=== PATIENT | female | born 1940 | race Caucasian/White ===

== ENCOUNTER 2017-09-18 21:37 | Inpatient (IN) | payer MEDICARE, MEDICAID ==
[2017-09-18 21:37] VITALS: BMI 30.1
--- NOTE | 2017-09-18 22:08 | C.PDOC ---
History Of Present Illness Patient, whose past medical history includes HTN and CAD, who presents to the ED complaining of shortness of breath since the last 2 to 3 weeks. Patient reports the symptoms began with mild productive cough and chest pain secondary to cough a few days ago. Patient denies fever, abdominal pain, vomiting, headache, or other complaints. Time Seen by Provider: 09/18/17 22:07 Chief Complaint (Nursing): Flu-like Symptoms History Per: Patient History/Exam Limitations: no limitations Onset/Duration Of Symptoms: Days Current Symptoms Are (Timing): Still Present Current Respiratory Medications: None Severity: Moderate Pain Scale Rating Of: 5 Associated Symptoms: Chest Pain (secondary to cough), Productive Cough. denies : Fever, Chills Recent travel outside of the [place]: No Past Medical History Reviewed: Historical Data, Nursing Documentation, Vital Signs Vital Signs: Last Vital Signs Temp 97.7 F 09/18/17 21:58 Pulse 70 09/18/17 21:58 Resp 18 09/18/17 21:58 BP 158/69 H 09/18/17 21:58 Pulse Ox 99 09/18/17 22:53 - Medical History PMH: Arthritis, Bronchitis, CAD, Cardia Arrhythmia, HTN, Hypercholesterolemia Denies: Chronic Kidney Disease Family History: States: No Known Family Hx - Social History Hx Tobacco Use: No Hx Alcohol Use: No Hx Substance Use: No - Immunization History Hx Influenza Vaccination: Yes Hx Pneumococcal Vaccination: Yes Review Of Systems Constitutional: Negative for: Fever Cardiovascular: Positive for: Chest Pain Respiratory: Positive for: Cough, Shortness of Breath Gastrointestinal: Negative for: Vomiting, Abdominal Pain Genitourinary: Negative for: Dysuria Musculoskeletal: Negative for: Back Pain Neurological: Negative for: Weakness, Numbness Physical Exam - Physical Exam Appears: Non-toxic, In Acute Distress Skin: Warm, Dry Head: Normacephalic Eye(s): bilateral: Normal Inspection Throat: No Erythema, No Exudate Neck: Supple Chest: No Tenderness, Other (sternotomy scar) Cardiovascular: Rhythm Regular, No Murmur Respiratory: No Rales, Rhonchi (scattered rhonchi) Gastrointestinal/Abdominal: Bowel Sounds (active), Soft, No Tenderness, No Distention, No Guarding, No Rebound Extremity: Normal ROM, Pedal Edema (bilateral ) Neurological/Psych: Oriented x3, Normal Speech, Normal Motor, Normal Sensation ED Course And Treatment - Laboratory Results Result Diagrams: 09/18/17 22:46 09/18/17 22:46 ECG: Interpreted By Me, Viewed By Me ECG Rhythm: Sinus Rhythm (66), Nonspecific Changes O2 Sat by Pulse Oximetry: 99 (room air) Pulse Ox Interpretation: Normal - Radiology CXR: Interpreted by Me, Viewed By Me CXR Interpretation: Yes: Other (av in place, sternotomy wires). No: COPD, Fracture, Pnemothorax Disposition Discussed With Dr.: Carlos Alberto Rojo Doctor Will See Patient In The: ED Counseled Patient/Family Regarding: Studies Performed, Diagnosis - Disposition Disposition: HOSPITALIZED Disposition Time: 22:08 Condition: FAIR - Clinical Impression Clinical Impression: Dyspnea, CHF (congestive heart failure), Pneumonia - Scribe Statement The provider has reviewed the documentation as recorded by the Scribe Scribe Attestation: Apryl Cummins MD Scribe Attestation: All medical record entries made by the Scribe were at my direction and personally dictated by me. I have reviewed the chart and agree that the record accurately reflects my personal performance of the history, physical exam, medical decision making, and the department course for this patient. I have also personally directed, reviewed, and agree with the discharge instructions and disposition. Decision To Admit - Pt Status Changed To: Hospital Disposition Of: Inpatient - Admit Certification Admit to Inpatient:: After my assessment, the patient will require hospitalization for at least two midnights. This is because of the severity of symptoms shown, intensity of services needed, and/or the medical risk in this patient being treated as an outpatient. - InPatient: Physician Admission Certification: I certify that this patient requires 2 or more midnights of care for the following reason:: After my assessment, the patient will require hospitalization for at least two midnights. This is because of the severity of symptoms shown, intensity of services needed, and/or the medical risk in this patient being treated as an outpatient. - . Bed Request Type: Telemetry Admitting Physician: Carlos Alberto Rojo Patient Diagnosis: Dyspnea, CHF (congestive heart failure), Pneumonia
[2017-09-18] MEDS ORDERED: cefTRIAXone IV 1 gm in Dextros 50 ML IVPB ONE (22:37)
[2017-09-18] MEDS ORDERED: Azithromycin 500 MG in Sodium Chloride 0.9% 250 ML IVPB STA (22:39)
[2017-09-18 22:49] LABS: BASO % 0.4 % (0.0-2.0); HEMOGLOBIN 11.7 g/dL (11.0-16.0); LYMPH # 0.8 K/uL (1.0-4.3); LYMPH % 20.5 % (20.0-40.0); MEAN CORPUSCULAR HEMOGLOBIN 29.1 pg (27.0-31.0); MEAN CORPUSCULAR HGB CONC 32.9 g/dL (33.0-37.0); MEAN PLATELET VOLUME 9.6 fL (7.2-11.7); MONO # 0.1 K/uL (0.0-0.8); MONO % 3.8 % (0.0-10.0); NEUT # 2.8 K/uL (1.8-7.0); NEUT % 75.3 % (50.0-75.0); RBC 4.03 Mil/uL (3.80-5.20); RED CELL DISTRIBUTION WIDTH 14.3 % (11.5-14.5)
[2017-09-18 22:51] LABS: VENOUS BLOOD GAS PCO2 42 mmHg (40-60); VENOUS BLOOD GAS PO2 43 mm/Hg (30-55)
[2017-09-18 22:53] LABS: MEAN CELL VOLUME 88.4 fL (81.0-99.0); WHITE BLOOD COUNT 3.8 K/uL (4.8-10.8)
[2017-09-18 22:57] LABS: INR 2.6
[2017-09-18 23:00] LABS: PROTHROMBIN TIME 30.4 SECONDS (9.7-12.2)
[2017-09-18 23:04] LABS: ALB/GLOB RATIO 1.1 (1.0-2.1); ALT/SGPT 32 U/L (9-52); AST/SGOT 41 U/L (14-36); BLOOD UREA NITROGEN 18 mg/dL (7-17); GFR AFRICAN-AMERICAN > 60; GFR NON-AFRICAN AMERICAN > 60
[2017-09-18 23:15] LABS: B-TYPE NATRIURETIC PEPTIDE 1090 pg/mL (0-900)
[2017-09-18] MEDS ORDERED: cefTRIAXone IV 1 gm in Dextros 0 ML IVPB ONE (23:16)
[2017-09-19] MEDS: Albuterol-Ipratrop 3 mg / 0.5 (3 ml) UD IH PRN ×2 (06:51→11:23)
[2017-09-19] MEDS ORDERED: Albuterol-Ipratrop 3 mg / 0.5 (3 ml) UD ONE (06:54)
[2017-09-19 07:33] LABS: SQUAMOUS EPITHIAL < 1 /hpf (0-5); URINE BILIRUBIN NEGATIVE (NEGATIVE); URINE BLOOD NEGATIVE (NEGATIVE); URINE CLARITY Clear (Clear); URINE COLOR Yellow (YELLOW); URINE GLUCOSE (UA) NORMAL (Normal); URINE LEUKOCYTE ESTERASE NEG Leu/uL (Negative); URINE PROTEIN NEGATIVE (NEGATIVE); URINE UROBILINOGEN NORMAL mg/dL (0.2-1.0)
--- NOTE | 2017-09-19 09:10 | RAD ---
PROCEDURE: CHEST RADIOGRAPH, 1 VIEW HISTORY: SOB COMPARISON: Chest radiograph dated 12/10/2014. FINDINGS: LUNGS: Stable chronic prominence of the bilateral interstitial markings with superimposed pulmonary vascular congestion not excluded. No focal consolidation. PLEURA: No pneumothorax or pleural fluid seen. CARDIOVASCULAR: Prior sternotomy with sternal wires and surgical clips redemonstrated. Atherosclerotic aortic calcifications. Cardiomediastinal silhouette stably enlarged. OSSEOUS STRUCTURES: Unchanged. VISUALIZED UPPER ABDOMEN: Normal. OTHER FINDINGS: None. IMPRESSION: Prominence of the pulmonary vasculature may be secondary to AP technique and/or pulmonary vascular congestion. No focal consolidation or pleural effusion.
[2017-09-19] MEDS ORDERED: MethylPREDNISolone 40 mg Vial IVP ONE (09:30)
[2017-09-19] MEDS ORDERED: MethylPREDNISolone 40 mg Vial ONE (09:42)
[2017-09-19 12:09] LABS: CK-MB 0.85 ng/mL (0.0-3.38)
[2017-09-19] MEDS: Potassium Chloride 10 mEq ER Tab PO SCH (13:01)
[2017-09-19] MEDS ORDERED: Potassium Chloride 10 mEq ER Tab PO ONE (13:02)
[2017-09-19] MEDS ORDERED: Albuterol-Ipratrop 3 mg / 0.5 (3 ml) UD IH PRN (14:30)
[2017-09-19 19:23] LABS: INR 2.8
[2017-09-19 19:27] LABS: PROTHROMBIN TIME 33.1 SECONDS (9.7-12.2)
[2017-09-19] MEDS: Albuterol-Ipratrop 3 mg / 0.5 (3 ml) UD INH SCH (19:30)
[2017-09-19] MEDS: MethylPREDNISolone 40 mg Vial IV SCH (22:00)
--- NOTE | 2017-09-19 23:11 | CON ---
DATE: CARDIOLOGY CONSULTATION REASON FOR CONSULTATION: Shortness of breath. HISTORY OF PRESENT ILLNESS: The patient is a 77 years old Filipino female who has history of chronic obstructive lung disease, history of aortic valve replacement for aortic stenosis in 1992 with a prosthetic valve, presents because of shortness of breath and productive cough as well as sweating. The patient denies any retrosternal chest pain but she does report tightness with her breathing that is nonradiating. SOCIAL HISTORY: Nonsmoker, nondrinker. HOME MEDICATIONS: Include bisoprolol, Coumadin, simvastatin, Procardia XL, Spiriva, Zyrtec, losartan, and gabapentin. REVIEW OF SYSTEMS: The patient is not aware of any fever or chills. However, her temperature this morning was 99.2. No vomiting or diarrhea. PHYSICAL EXAMINATION: GENERAL: The patient is an elderly female, who does not appear to be in any acute distress. VITAL SIGNS: Blood pressure 125/62, heart rate 61, temperature 99.2. HEENT: Normocephalic. CHEST: Diffuse bilateral rhonchi. HEART: S1 and S2 regular. ABDOMEN: Soft. EXTREMITIES: No edema. LABORATORIES: SMA-7: Sodium 140, potassium 4.1, chloride 103, CO2 of 23, glucose 141, BUN 18, creatinine 0.6, two sets of troponins are negative, proBNP is 1090, hemoglobin and hematocrit 11.7 and 35.6, white count 3.8, platelet count of 166,000. EKG revealed normal sinus rhythm. Influenza type A and B serology is negative. INR is 2.6. Chest x-ray revealed prominent pulmonary vasculature. No consolidation or pleural effusion. ASSESSMENT: 1. Exacerbation of chronic obstructive lung disease. 2. Rule out underlying pneumonia. 3. Mild congestive heart failure. The most recent echo in 09/2015 revealed normal left ventricular systolic function, moderate aortic stenosis. RECOMMENDATIONS: Continue current albuterol inhaler. Continue IV Rocephin, IV Zithromax, and discontinue beta blockers. Obtain 2 sets of blood cultures and start Lasix at 20 mg intravenous once a day, resume Coumadin at 5 mg orally once a day. Obtain an echocardiogram and chest CT scan without contrast. Jacky Hannallah, MD
[2017-09-20] MEDS: Albuterol-Ipratrop 3 mg / 0.5 (3 ml) UD INH SCH ×8 (01:08→15:59)
--- NOTE | 2017-09-20 02:53 | HP ---
HISTORY OF PRESENT ILLNESS: This is a 77-year-old [place]i female with history of multiple medical problems, presented to emergency room with symptoms of cough and shortness of breath for 4-day duration. The patient had flu-like symptoms about 2 weeks prior to this admission. The patient slightly improved and that was followed by productive cough associated with shortness of breath. The patient presented to emergency room for evaluation where she was found to be in heart failure and congestion and hypoxemia. The patient was started on oxygen as well as started on IV antibiotics and Lasix and admitted for further management. Other review of systems negative. ALLERGIES: NO KNOWN ALLERGY. MEDICATIONS: As per an MAR. PAST MEDICAL HISTORY: 1. Hypertension, status post prosthetic aortic valve, currently on anticoagulant, warfarin. 2. Osteoarthritis. 3. COPD. FAMILY HISTORY: Noncontributory. SOCIAL HISTORY: No history of smoking, EtOH or substance abuse. PHYSICAL EXAMINATION: GENERAL: VITAL SIGNS: Blood pressure is 133/69, temperature 98.7, respiratory rate 20, and pulse 66. HEENT: Pupils equal, reactive to light. Normal appearing mucosa of the conjunctivae, oropharynx and nasal membrane mucosa. NECK: Supple. No JVD. No carotid bruit. No lymph node. No thyromegaly. CHEST/LUNGS: Bilateral symmetrical expansion. Good air exchange. Scattered rhonchi all over lung willett with prolonged expiration and coarse rales change with cough. CARDIOVASCULAR SYSTEM: S1, S2. No additional sounds. ABDOMEN: Normoactive bowel sounds. No tenderness. No organomegaly. No masses. EXTREMITIES: No cyanosis, no clubbing, no edema. WOVEN WOOD SHADE ASSEMBLER: Alert, awake, oriented x2. No neurological deficit could be appreciated. ASSESSMENT: 1. Congestive heart failure with elevated proBNP. 2. Clinical pneumonia. 3. Hypertension. 4. Exacerbation of chronic obstructive pulmonary disease. 5. Osteoarthritis. PLAN: We will continue Lasix, IV Solu-Medrol, and bronchodilators as well as IV antibiotics. Resume the patient's home medications, Cardiology consult. Carlos Alberto Rojo MD
[2017-09-20 06:46] LABS: INR 3.5
[2017-09-20 06:50] LABS: PROTHROMBIN TIME 41.4 SECONDS (9.7-12.2)
[2017-09-20] MEDS: Potassium Chloride 10 mEq ER Tab PO SCH (08:28)
[2017-09-20] MEDS: MethylPREDNISolone 40 mg Vial IV SCH ×2 (09:33→21:45)
[2017-09-20] MEDS ORDERED: Azithromycin 500 MG in Sodium Chloride 0.9% 250 ML IVPB SCH (10:00)
[2017-09-20] MEDS ORDERED: Aluminum Hydroxide/Magnesium Hydroxide Susp (30 mL) PO ONE (13:00)
--- NOTE | 2017-09-20 15:31 | RAD ---
Chest, one view Indication: Rule out pneumonia Comparison: Chest x-ray performed 09/18/17 Findings: Examination limited by habitus and hypoinflation. Median sternotomy wires. Cardiomegaly. Ectatic aorta. Atherosclerotic calcifications of the aorta. Stable chronic prominent appearing interstitial markings. No focal consolidation. No pleural effusion. No pneumothorax. Please note that chest x-ray has limited sensitivity for the detection of pulmonary masses. Degenerative changes of the spine. Impression: Chronic appearing interstitial markings. Cardiomegaly. Atherosclerotic calcifications. Median sternotomy wires.
[2017-09-20] MEDS: guaiFENesin 200 mg/10 ml Syrup UD PO SCH (17:13)
[2017-09-20] MEDS: Ipratropium 0.02% Inhal Soln (0.5 mg/2.5 ml) UD IH PRN (19:23)
[2017-09-20] MEDS ORDERED: Simethicone 80 mg Chewtab PO ONE (21:15)
[2017-09-20] MEDS: Nystatin 100,000 Units/ml Oral Susp 5 ml UD PO SCH (21:45)
--- NOTE | 2017-09-20 23:09 | PN ---
DATE: SUBJECTIVE: The patient is still experiencing shortness of breath and at times wheezing as well as cough. She has experienced chest pain while coughing. PHYSICAL EXAMINATION VITAL SIGNS: Blood pressure 138/67, heart rate 58, temperature is 98.1, and respirations 20. HEENT: Normocephalic. CHEST: Diffuse bilateral rhonchi. HEART: S1 and S2 regular. EXTREMITIES: No edema. LABORATORY DATA: The total of three sets of troponin's are negative. Blood culture is negative after 24 hours. Repeat chest x-ray revealed COPD picture with prominent bronchovascular markings. ASSESSMENT: 1. Exacerbation of chronic obstructive lung disease. 2. Rule out underlying pneumonia. 3. History of aortic valve replacement with prosthetic valve for aortic stenosis in 1990. RECOMMENDATIONS: 1. Continue current IV Zithromax and IV Rocephin. 2. Continue albuterol. 3. Continue Cozaar 50 mg once a day, Lasix 20 mg twice a day, Klor-Con 10 mEq once a day, Solu-Medrol 40 mg every 12 hours, twice a day, and Coumadin will be withheld today. Today's INR is 3.5 Jacky Fay MD
[2017-09-21] MEDS: guaiFENesin 200 mg/10 ml Syrup UD PO SCH ×4 (00:33→18:46)
[2017-09-21] MEDS: Acetylcysteine 20% Inhal Soln (4ml) INH SCH ×4 (02:08→21:03)
--- NOTE | 2017-09-21 02:23 | PN ---
DATE: 09/20/2017 SUBJECTIVE: The patient is seen today, 09/20/2017. She is still short of breath and having cough with chest discomfort. OBJECTIVE: VITAL SIGNS: Blood pressure is 138/67, temperature 98.1, respiratory rate 20, and pulse 58. HEENT: Pupils equal and reactive to light. Normal-appearing mucosa of the conjunctivae, oropharynx, and nasal membrane mucosa. NECK: Supple. No JVD. No carotid bruit. No lymph node. No thyromegaly. CHEST AND LUNGS: Bilateral symmetrical expansion. Good air exchange. Bilateral rhonchi, scattered all over lung willett. CARDIOVASCULAR SYSTEM: PMI not localized. S1, S2. No additional sounds. ABDOMEN: Normoactive bowel sounds. No tenderness. No organomegaly. No masses. EXTREMITIES: No cyanosis, no clubbing, no edema. BIODIESEL PLANT OPERATIONS ENGINEER: Alert, awake, and oriented x3. No neurological deficit could be appreciated. ASSESSMENT: Diastolic congestive heart failure, exacerbation of underlying obstructive lung disease, hypertension, status post aortic valve replacement. PLAN: We will give Atrovent instead of the DuoNeb due to albuterol-induced tachycardia. Also, we will add Pulmicort nebulizer, and we will give Mucomyst, continue steroid. Carlos Alberto Rojo MD
[2017-09-21 07:20] LABS: INR 3.8
[2017-09-21 07:22] LABS: BASO % 0.1 % (0.0-2.0); HEMOGLOBIN 12.1 g/dL (11.0-16.0); LYMPH # 1.4 K/uL (1.0-4.3); MEAN CELL VOLUME 88.8 fL (81.0-99.0); MEAN CORPUSCULAR HGB CONC 33.8 g/dL (33.0-37.0); MEAN PLATELET VOLUME 9.8 fL (7.2-11.7); MONO # 0.3 K/uL (0.0-0.8); MONO % 3.4 % (0.0-10.0); NEUT # 6.8 K/uL (1.8-7.0); NEUT % 80.5 % (50.0-75.0); NRBC % 0.1 % (0.0-2.0); RBC 4.03 Mil/uL (3.80-5.20); RED CELL DISTRIBUTION WIDTH 14.7 % (11.5-14.5); WHITE BLOOD COUNT 8.5 K/uL (4.8-10.8)
[2017-09-21 07:32] LABS: PROTHROMBIN TIME 45.1 SECONDS (9.7-12.2)
[2017-09-21 07:41] LABS: BLOOD UREA NITROGEN 34 mg/dL (7-17); CALCIUM 8.4 mg/dl (8.6-10.4); GFR AFRICAN-AMERICAN > 60; GFR NON-AFRICAN AMERICAN > 60
[2017-09-21] MEDS: Ipratropium 0.02% Inhal Soln (0.5 mg/2.5 ml) UD IH PRN ×3 (08:03→21:03)
[2017-09-21] MEDS: Budesonide 0.25 mg/2 ml Inhal Susp UD INH SCH ×2 (08:04→21:03)
[2017-09-21] MEDS: Potassium Chloride 10 mEq ER Tab PO SCH (08:12)
[2017-09-21] MEDS: MethylPREDNISolone 40 mg Vial IV SCH ×2 (10:06→22:14)
[2017-09-21] MEDS: Azithromycin 500 MG in Sodium Chloride 0.9% 250 ML IVPB SCH (10:06)
[2017-09-21] MEDS: Nystatin 100,000 Units/ml Oral Susp 5 ml UD PO SCH ×4 (10:06→22:14)
[2017-09-21] MEDS: Pantoprazole 40 mg EC Tab PO SCH (13:53)
--- NOTE | 2017-09-21 17:46 | CARD ---
APPROVED REPORT EXAM: Two-dimensional and M-mode echocardiogram with Doppler and color Doppler. Other Information Quality : GoodRhythm : INDICATION Dyspnea Cardiac Disease: CAD Chest Pain Congestive Heart Failure PNEUMONIA RISK FACTORS Hypertension Hyperlipidemia 2D DIMENSIONS IVSd0.9 (0.7-1.1cm)LVDd4.6 (3.9-5.9cm) LVOT Diameter1.9 (1.8-2.4cm)PWd1.1 (0.7-1.1cm) LVDs3.2 (2.5-4.0cm)FS (%) 29.8 % LVEF (%)56.9 (>50%) M-Mode DIMENSIONS Left Atrium (MM)4.60 (2.5-4.0cm)Aortic Root3.09 (2.2-3.7cm) Aortic Valve AoV Peak Djxspgxc868.2cm/sAoV VTI79.8cmAO Peak GR.50mmHg LVOT Peak Lphqfpyv905.5cm/sLVOT VTI28.91cmAO Mean GR.27mmHg DAVID (VMAX)0.90rc7MRJ (VTI)0.98cm2 Mitral Valve MV E Ldbytyzo235.9cm/sMV A Ihmhrgei896.5cm/sE/A ratio1.0 TDI E/Lateral E'0.0E/Medial E'0.0 Tricuspid Valve TR Peak Vszcwoyv717nj/sTR Peak Gr.92mxMtQDIY57pySg LEFT VENTRICLE The left ventricle is normal size. There is mild concentric left ventricular hypertrophy. The left ventricular function is normal. The left ventricular ejection fraction is within the normal range. There is normal LV segmental wall motion. Transmitral Doppler flow pattern is Grade I-abnormal relaxation pattern. RIGHT VENTRICLE The right ventricle is normal size. There is normal right ventricular wall thickness. The right ventricular systolic function is normal. ATRIA The left atrium is mildly dilated. The right atrium is mildly dilated. AORTIC VALVE No aortic regurgitation is present. There is a mechanical aortic valve prosthesis with moderate aortic stenosis. MITRAL VALVE The mitral valve is moderately thickened. There is no mitral valve stenosis. Mitral regurgitation is mild to moderate. TRICUSPID VALVE There is mild pulmonary hypertension. <Conclusion> The left ventricle is normal size. There is mild concentric left ventricular hypertrophy. The left ventricular function is normal. The left ventricular ejection fraction is within the normal range. There is normal LV segmental wall motion. Transmitral Doppler flow pattern is Grade I-abnormal relaxation pattern. There is a mechanical aortic valve prosthesis with moderate aortic stenosis. Mitral regurgitation is mild to moderate. There is mild pulmonary hypertension.
--- NOTE | 2017-09-21 21:44 | PN ---
DATE: SUBJECTIVE: The patient is experiencing shortness of breath and cough. PHYSICAL EXAMINATION VITAL SIGNS: Blood pressure 145/74, heart rate 58, temperature 97.6, respirations 20. HEENT: Normocephalic. CHEST: Bilateral rhonchi. HEART: S1 and S2, regular. ABDOMEN: Soft. EXTREMITIES: No edema. LABORATORY DATA: SMA-7 is within normal limits except for glucose 135 and BUN of 34. Hemoglobin and hematocrit, white count and platelet count within normal limits. Repeat chest x-ray, chronic interstitial markings and cardiomegaly. No remarkable difference compared to earlier chest x-ray done in the emergency room. ASSESSMENT: 1. Exacerbation of chronic obstructive lung disease. 2. Status post mechanical aortic valve replacement in 1992. 3. Hypertension. RECOMMENDATIONS: Case was discussed with Dr. Rojo. Continue IV Rocephin and IV Zithromax. Continue Lasix 20 mg intravenous twice a day, Klor-Con at 10 mEq once a day, Solu-Medrol 40 mg intravenous every 12 hours, Tamiflu at 75 mg twice a day, DuoNeb was discontinued. I will review the echocardiographic study. Jacky Fay MD
[2017-09-22] MEDS: guaiFENesin 200 mg/10 ml Syrup UD PO SCH ×4 (01:25→20:02)
[2017-09-22] MEDS: Acetylcysteine 20% Inhal Soln (4ml) INH SCH ×2 (07:41→20:07)
[2017-09-22] MEDS: Budesonide 0.25 mg/2 ml Inhal Susp UD INH SCH ×2 (07:42→20:07)
[2017-09-22] MEDS: Ipratropium 0.02% Inhal Soln (0.5 mg/2.5 ml) UD IH PRN ×4 (07:42→20:07)
[2017-09-22] MEDS: Azithromycin 500 MG in Sodium Chloride 0.9% 250 ML IVPB SCH (09:47)
[2017-09-22] MEDS: Pantoprazole 40 mg EC Tab PO SCH (09:48)
[2017-09-22] MEDS: Potassium Chloride 10 mEq ER Tab PO SCH (09:48)
[2017-09-22] MEDS: Nystatin 100,000 Units/ml Oral Susp 5 ml UD PO SCH ×4 (09:48→22:09)
[2017-09-22] MEDS: MethylPREDNISolone 40 mg Vial IV SCH ×2 (09:48→22:09)
[2017-09-22] MEDS ORDERED: Pneumococcal 23-Valent Vaccine IM ONE (10:00)
[2017-09-22 10:52] LABS: INR 2.6
[2017-09-22 10:58] LABS: PROTHROMBIN TIME 31.1 SECONDS (9.7-12.2)
--- NOTE | 2017-09-22 20:37 | PN ---
DATE: 09/22/2017 SUBJECTIVE: The patient is still experiencing shortness of breath and cough of thick greenish sputum. PHYSICAL EXAMINATION: VITAL SIGNS: Blood pressure 160/64, heart rate 56, temperature 97.8, respirations 18. HEENT: Normocephalic. CHEST: Bilateral rhonchi. CARDIOPULMONARY: S1 and S2. Regular. EXTREMITIES: No edema. LABORATORY DATA: Today's INR is 2.7. ASSESSMENT: 1. Exacerbation of chronic obstructive lung disease. 2. Status post aortic valve replacement with a mechanical valve in 1992. 3. Hypertension. RECOMMENDATIONS: Continue Lasix 20 mg intravenous twice a day, Procardia 20 mg q.8 hours, Solu-Medrol at 40 mg intravenous twice a day, Tamiflu 75 mg twice a day, Cozaar 50 mg twice a day. The patient will receive Coumadin 2.5 mg today. Continue IV Zithromax and IV Rocephin. Jacky Fay MD
[2017-09-23] MEDS: Acetylcysteine 20% Inhal Soln (4ml) INH SCH ×4 (01:11→19:02)
[2017-09-23] MEDS: guaiFENesin 200 mg/10 ml Syrup UD PO SCH ×4 (01:28→17:58)
--- NOTE | 2017-09-23 02:57 | PN ---
DATE: 09/21/2017 SUBJECTIVE: The patient was seen on 09/21/2017. She was in mild respiratory distress with exertional shortness of breath and cough. OBJECTIVE: VITAL SIGNS: Blood pressure was 143/69, temperature 97.6, respiratory rate 20 and pulse 58. HEENT: Pupils equal, reactive to light. Normal-appearing mucosa of the conjunctivae, oropharynx and nasal membrane mucosa. NECK: Supple. No JVD. No carotid bruit. No lymph node. No thyromegaly. CHEST AND LUNGS: Bilateral symmetrical expansion. Good air exchange. No rales, no rhonchi. CARDIOVASCULAR SYSTEM: PMI not localized. S1, S2. No additional sounds. ABDOMEN: Normoactive bowel sounds. No tenderness. No organomegaly. No masses. EXTREMITIES: No cyanosis, no clubbing, no edema. DOMESTIC LAUNDRY WORKER: Alert, awake, oriented x2. No neurological deficit could be appreciated. ASSESSMENT: Exacerbation of chronic obstructive pulmonary disease, clinical pneumonia, bronchitis, diastolic congestive heart failure, status post aortic valve replacement. PLAN: Hold Coumadin today as INR is above 3. Held Coumadin on 09/21/2017 as INR is above 3. Continue current antibiotics and bronchodilators as well as his steroid and discussed the patient's condition with her daughter at the bedside. Carlos Alberto Rojo MD
--- NOTE | 2017-09-23 04:19 | PN ---
DATE: 09/22/2017 SUBJECTIVE: The patient is seen today 09/22/2017. She is less short of breath and she is having less cough. PHYSICAL EXAMINATION: VITAL SIGNS: Blood pressure is 160/64, temperature 97.8, respiratory rate 18, and pulse 56. HEENT: Pupils equal, reactive to light. Normal-appearing mucosa of the conjunctivae, oropharynx and nasal membrane mucosa. NECK: Supple. No JVD. No carotid bruit. No lymph node. No thyromegaly. CHEST AND LUNGS: Bilateral symmetrical expansion. Few scattered rhonchi. CARDIOVASCULAR SYSTEM: PMI not localized. S1, S2. No additional sounds. ABDOMEN: Normoactive bowel sounds. No tenderness. No organomegaly. No masses. EXTREMITIES: No cyanosis, clubbing, no edema. BALANCE TRUER: Alert, awake, oriented x2. No neurological deficit could be appreciated. ASSESSMENT: Exacerbation of chronic obstructive pulmonary disease, clinical pneumonia, bronchitis, hypertension, status post aortic valve replacement. PLAN: We will give Coumadin 2.5 mg today as INR is down to 2.6. Continue current medications. We will decrease Solu-Medrol to once a day and we will add nifedipine 20 mg every 8 hours. Carlos Alberto Rojo MD
[2017-09-23 07:00] LABS: INR 2.6
[2017-09-23 07:10] LABS: PROTHROMBIN TIME 29.8 SECONDS (9.7-12.2)
[2017-09-23] MEDS: Budesonide 0.25 mg/2 ml Inhal Susp UD INH SCH ×2 (07:12→17:32)
[2017-09-23] MEDS: Nystatin 100,000 Units/ml Oral Susp 5 ml UD PO SCH ×4 (09:18→21:57)
[2017-09-23] MEDS: MethylPREDNISolone 40 mg Vial IVP SCH (09:18)
[2017-09-23] MEDS: Potassium Chloride 10 mEq ER Tab PO SCH (09:19)
[2017-09-23] MEDS: Pantoprazole 40 mg EC Tab PO SCH (09:19)
[2017-09-23] MEDS: Azithromycin 500 MG in Sodium Chloride 0.9% 250 ML IVPB SCH (10:16)
--- NOTE | 2017-09-23 17:23 | CARD ---
APPROVED REPORT EKG Measurement Heart [id number] <Conclusion> Sinus bradycardia Low voltage QRS Borderline ECG
[2017-09-23] MEDS: Ipratropium 0.02% Inhal Soln (0.5 mg/2.5 ml) UD IH PRN (17:32)
--- NOTE | 2017-09-23 18:12 | CARD ---
APPROVED REPORT EKG Measurement Heart [id number] [place] 186P-5 [id number] <Conclusion> Normal sinus rhythm Normal ECG
--- NOTE | 2017-09-23 20:48 | PN ---
DATE: SUBJECTIVE: The patient did experience dizziness. She went to the bathroom today. Her shortness of breath has improved slightly since. PHYSICAL EXAMINATION: VITAL SIGNS: Blood pressure 137/76, heart rate 61, temperature 98, and respirations 18. HEENT: Normocephalic. CHEST: Bilateral rhonchi. HEART: S1 and S2 regular. EXTREMITIES: No edema. LABORATORY DATA: Today's INR is 2.6. EKG done this morning reveals sinus rhythm at a rate of 59. ASSESSMENT: 1. Exacerbation of chronic obstructive lung disease. 2. Status post prosthetic aortic valve replacement. The patient is currently in moderate aortic stenosis. 3. Hypertension. RECOMMENDATIONS: Continue Tamiflu 75 mg twice a day, Solu-Medrol 40 mg intravenously once a day, Procardia 20 mg p.o. q.8 hours, Lasix 20 mg intravenously twice a day, Klor-Con 10 mEq once a day, Cozaar 50 mg once a day, Coumadin 2.5 mg will be administered today. Continue IV Zithromax and IV Rocephin. Jacky Fay MD
[2017-09-24] MEDS: guaiFENesin 200 mg/10 ml Syrup UD PO SCH ×4 (00:07→18:33)
--- NOTE | 2017-09-24 00:18 | PN ---
DATE: 09/23/2017. SUBJECTIVE: The patient is seen today 09/23/2017. She is not in any cardiopulmonary distress, but she still has cough and some wheezing. PHYSICAL EXAMINATION: VITAL SIGNS: Blood pressure 120/71, temperature 97.9, respiratory rate 18 and pulse 63. HEENT: Pupils equal, reactive to light. Normal-appearing mucosa of the conjunctivae, oropharynx and nasal membrane mucosa. NECK: Supple. No JVD. No carotid bruit. No lymph nodes. No thyromegaly. CHEST AND LUNGS: Bilateral symmetrical expansion. Good air exchange. No rales, no rhonchi. CARDIOVASCULAR SYSTEM: PMI not localized. S1 and S2. No additional sounds. ABDOMEN: Normoactive bowel sounds. No tenderness. No organomegaly. No masses. EXTREMITIES: No cyanosis, clubbing, no edema. VOTING MACHINE MECHANIC: Alert, awake, oriented x2. No neurological deficit could be appreciated. ASSESSMENT: 1. Exacerbation of chronic obstructive pulmonary disease. 2. Clinical pneumonia. 3. Hypertension. 4. Status post aortic valve replacement. PLAN: Give Coumadin 2.5 mg today as INR is 2.6. Continue current IV antibiotics. Decrease Solu-Medrol to 40 mg daily. Continue bronchodilators as needed, physical therapy. Carlos Alberto Rojo MD
[2017-09-24] MEDS: Acetylcysteine 20% Inhal Soln (4ml) INH SCH ×3 (01:40→19:33)
[2017-09-24 06:40] LABS: INR 2.4
[2017-09-24] MEDS: Budesonide 0.25 mg/2 ml Inhal Susp UD INH SCH ×2 (07:19→17:15)
[2017-09-24] MEDS: Potassium Chloride 10 mEq ER Tab PO SCH (07:57)
[2017-09-24] MEDS: Pantoprazole 40 mg EC Tab PO SCH (10:30)
[2017-09-24] MEDS: MethylPREDNISolone 40 mg Vial IVP SCH (10:30)
[2017-09-24] MEDS: Nystatin 100,000 Units/ml Oral Susp 5 ml UD PO SCH ×4 (11:09→23:03)
[2017-09-24 15:45] VITALS: RESP 20
[2017-09-24] MEDS: Ipratropium 0.02% Inhal Soln (0.5 mg/2.5 ml) UD IH PRN ×2 (17:14→22:24)
--- NOTE | 2017-09-24 22:08 | PN ---
DATE: SUBJECTIVE: The patient is experiencing productive cough. No chest pain and no dizziness. PHYSICAL EXAMINATION VITAL SIGNS: Blood pressure 121/63, heart rate 76, temperature 97.7, respirations 20. HEENT: Normocephalic. CHEST: Bibasilar rhonchi. HEART: Heart sounds regular. EXTREMITIES: No edema. LABORATORY DATA: Today's INR is 2.4. ASSESSMENT: 1. Exacerbation of chronic obstructive lung disease. 2. Aortic valve replacement for mechanical valve prosthesis. 3. Hypertension. RECOMMENDATIONS: Continue Solu-Medrol 40 mg intravenously daily, Robitussin 200 mg p.o. every 6 hours, Procardia 20 mg p.o. every 8 hours, Klor-Con 10 mEq once a day, Cozaar 50 mg once a day, Coumadin 2.5 mg today. Rocephin 1 gm intravenously daily. Jacky Fay MD
[2017-09-25] MEDS: guaiFENesin 200 mg/10 ml Syrup UD PO SCH ×2 (00:15→05:49)
--- NOTE | 2017-09-25 01:20 | PN ---
DATE: 09/24/2017 SUBJECTIVE: The patient is seen today, 09/24/2017. She is having cough which is improving and decreased shortness of breath. PHYSICAL EXAMINATION: VITAL SIGNS: Blood pressure 121/63, temperature 97.7, respiratory rate 20, and pulse 76. HEENT: Pupils equal, reactive to light. Normal-appearing mucosa of the conjunctivae, oropharynx, and nasal membrane mucosa. NECK: Supple. No JVD. No carotid bruit. No lymph nodes. No thyromegaly. CHEST/LUNGS: Bilateral symmetrical expansion, good air exchange. No rales. Few rhonchi, scattered. CARDIOVASCULAR: PMI not localized. S1 and S2. No additional sounds. ABDOMEN: Normoactive bowel sounds. No tenderness. No organomegaly. No masses. EXTREMITIES: No cyanosis, no clubbing, no edema. QUOTATION CLERK: Alert, awake, oriented x2. No neurological deficit could be appreciated. ASSESSMENT: Exacerbation of chronic obstructive pulmonary disease, clinical pneumonia, hypertension, osteoarthritis, prosthetic aortic valve. PLAN: We will give Coumadin 2.5 mg today as INR is 2.4. We will also continue current antibiotic and taper steroids and plan to discharge the patient the following day. Carlos Alberto Rojo MD
[2017-09-25] MEDS: Acetylcysteine 20% Inhal Soln (4ml) INH SCH ×2 (01:34→07:58)
[2017-09-25 06:29] LABS: INR 1.8; PROTHROMBIN TIME 20.4 SECONDS (9.7-12.2)
[2017-09-25 06:40] LABS: ALB/GLOB RATIO 1.2 (1.0-2.1); ALBUMIN 3.2 g/dL (3.5-5.0); ALT/SGPT 30 U/L (9-52); AST/SGOT 17 U/L (14-36); BLOOD UREA NITROGEN 33 mg/dL (7-17); CALCIUM 8.9 mg/dl (8.6-10.4); GFR AFRICAN-AMERICAN > 60; GFR NON-AFRICAN AMERICAN > 60
[2017-09-25 07:47] VITALS: BP 130/60; PULSE 75; TEMP 98.4; O2SAT 96
[2017-09-25] MEDS: Ipratropium 0.02% Inhal Soln (0.5 mg/2.5 ml) UD IH PRN ×2 (07:58→12:10)
[2017-09-25] MEDS: Budesonide 0.25 mg/2 ml Inhal Susp UD INH SCH (07:58)
[2017-09-25] MEDS: Potassium Chloride 10 mEq ER Tab PO SCH (08:22)
[2017-09-25] MEDS: MethylPREDNISolone 40 mg Vial IVP SCH (10:03)
[2017-09-25] MEDS: Pantoprazole 40 mg EC Tab PO SCH (10:04)
[2017-09-25] MEDS: Nystatin 100,000 Units/ml Oral Susp 5 ml UD PO SCH (10:04)
[2017-09-25] MEDS ORDERED: Potassium Chloride 20 mEq ER Tab PO STA (11:01)
--- NOTE | 2017-09-25 11:27 | PCM.HF ---
Heart Failure Core Measure - Heart Failure Ejection Fraction: 40 % or Greater SAMIA Inhibitor Prescribed: No Contraindication/Reason for not providing: on arb Beta-Nathalie Prescribed: Bisoprolol Angiotensin II Receptor Nathalie Prescribed: Yes AnticoagulationTherapy for Atrial Fibrillation/Atrialflutter: Yes Aldosterone Antagonist Prescribed: No Contraindication/Reason for not providing: ef >40 Hydralazine Nitrate Prescribed: No Contraindication/Reason for not providing: ef>40 Implantable Cardioverter Defibrillator Therapy: No Contraindication/Reason for not providing: ef >40 Cardiac Resynchronization Therapy Prescribed: No Contraindication/Reason for not providing: ef >40 - Follow up Will be discharged to: Home Follow Up Date (must be within 7 days from discharge): 09/27/17 Follow Up Time: 09:00
--- NOTE | 2017-09-26 01:58 | DS ---
REASON FOR ADMISSION: This is a 77 years old [place] female with history of multiple medical problems who was admitted for severe respiratory symptoms, not responding to outpatient treatment. COURSE OF HOSPITALIZATION: The patient was admitted to telemetry floor for treating congestive heart failure/exacerbation of chronic obstructive pulmonary disease with clinical pneumonia. The patient was started on IV antibiotics, both Rocephin and azithromycin. The patient also was given IV Lasix. The patient had a cardiology consult done by Dr. Fay as well as she was continued on bronchodilators and steroids that was tapered. The patient did well, and she was discharged to home in a stable condition to continue her home medications as well as Warfarin. FINAL DIAGNOSES: 1. Exacerbation of chronic obstructive pulmonary disease. 2. Clinical pneumonia. 3. Diastolic congestive heart failure, acute on chronic. 4. Prosthetic aortic valve. 5. Hypertension. [facility] MD Darrel
--- NOTE | 2017-09-27 16:35 | CARD ---
APPROVED REPORT EKG Measurement Heart [id number] <Conclusion> Sinus bradycardia RSR' or QR pattern in V1 suggests right ventricular conduction delay Possible Inferior infarct, age undetermined Abnormal ECG
== END 2017-09-25 12:46 | disposition home or self-care (01) | DRG 291 ==
LOC: C.ER 21:37 → C.9E 23:41 → C.3T 09-19 12:50 → C.6T 09-20 22:41
PROVIDERS: ADMIT Internal Medicine; ATTEND Internal Medicine
DX: I11.0 Hypertensive heart disease with heart failure (principal); J18.9 Pneumonia, unspecified organism; Z95.2 Presence of prosthetic heart valve; Z79.01 Long term (current) use of anticoagulants; J44.0 Chronic obstructive pulmonary disease with (acute) lower respiratory infection; J44.1 Chronic obstructive pulmonary disease with (acute) exacerbation; I50.33 Acute on chronic diastolic (congestive) heart failure; I25.10 Atherosclerotic heart disease of native coronary artery without angina pectoris; E78.00 Pure hypercholesterolemia, unspecified; M19.90 Unspecified osteoarthritis, unspecified site; R09.02 Hypoxemia

== ENCOUNTER 2018-05-20 13:44 | Inpatient (IN) | payer MEDICARE, MEDICAID ==
[2018-05-20 13:45] VITALS: BMI 30.1
[2018-05-20] MEDS ORDERED: Sodium Chloride 0.9% 1,000 ML IV SCH ×2 (15:15→18:15)
--- NOTE | 2018-05-20 15:23 | C.PDOC ---
History Of Present Illness 78 y/o female presents to the ER complaining of dizziness,nausea, and vomiting which has been present for the past 1 week. Patient is also complaining of headache which began today. Patient reports that she went to see her PMD as today. Dr. Rojo referred her to the ER for evaluation of headache and dizziness and admission.Denies having CP, SOB, fever, chills, and abdominal pain. Time Seen by Provider: 05/20/18 14:19 Chief Complaint (Nursing): Dizziness/Lightheaded History Per: Patient History/Exam Limitations: no limitations Onset/Duration Of Symptoms: Days Current Symptoms Are (Timing): Still Present Severity: Moderate Past Medical History Reviewed: Historical Data, Nursing Documentation, Vital Signs Vital Signs: Last Vital Signs Temp 98.0 F 05/20/18 14:07 Pulse 75 05/20/18 14:07 Resp 18 05/20/18 14:07 BP 126/61 05/20/18 14:07 Pulse Ox 97 05/20/18 14:07 - Medical History PMH: Arthritis (KNEE; BACK), Bronchitis, CAD, Cardia Arrhythmia, HTN, Hypercholesterolemia Denies: Chronic Kidney Disease Other Surgeries: Hx of surgeries Family History: States: No Known Family Hx - Social History Hx Tobacco Use: No Hx Alcohol Use: No Hx Substance Use: No - Immunization History Hx Influenza Vaccination: Yes Hx Pneumococcal Vaccination: Yes Review Of Systems Except As Marked, All Systems Reviewed And Found Negative. Constitutional: Negative for: Fever, Chills Cardiovascular: Negative for: Chest Pain Respiratory: Negative for: Shortness of Breath Gastrointestinal: Positive for: Nausea, Vomiting. Negative for: Abdominal Pain Neurological: Positive for: Headache, Dizziness Physical Exam - Physical Exam Appears: Non-toxic, No Acute Distress Skin: Normal Color, Warm, Dry Head: Atraumatic, Normacephalic Eye(s): bilateral: Normal Inspection Nose: Normal Oral Mucosa: Moist Neck: Supple Chest: Symmetrical Cardiovascular: Rhythm Regular Respiratory: Normal Breath Sounds, No Rales, No Rhonchi, No Wheezing Gastrointestinal/Abdominal: Normal Exam, Soft, No Tenderness, No Guarding, No Rebound Neurological/Psych: Oriented x3, Normal Speech ED Course And Treatment - Laboratory Results Result Diagrams: 05/20/18 15:43 05/20/18 15:43 ECG: Interpreted By Me, Viewed By Me ECG Rhythm: Sinus Bradycardia Interpretation Of ECG: NSR with normal intervals, normal axises, T wave inversion in Leads 2, V, AVF, and V4-V6 ( new changes compared to EKG 09/20/17) Rate From EC O2 Sat by Pulse Oximetry: 97 (RA) Pulse Ox Interpretation: Normal Medical Decision Making Medical Decision Making: Assessment: Dizziness Plan: --Lab --EKG --CXR --UA --IV Fluids --Zofran IV --Melcizine PO 1755 - case discussed with Dr. Rojo and will admit to telemetry Disposition Discussed With Dr.: Carlos Alberto Rojo Doctor Will See Patient In The: Hospital Counseled Patient/Family Regarding: Studies Performed, Diagnosis - Disposition Disposition: HOSPITALIZED Disposition Time: 18:05 Condition: FAIR Forms: [facility] (Trinidadian) - Clinical Impression Clinical Impression: CHF (congestive heart failure), Renal insufficiency - Scribe Statement The provider has reviewed the documentation as recorded by the Ilyaibmicaela Kong Provider Attestation: All medical record entries made by the Scribe were at my direction and personally dictated by me. I have reviewed the chart and agree that the record accurately reflects my personal performance of the history, physical exam, medical decision making, and the department course for this patient. I have also personally directed, reviewed, and agree with the discharge instructions and disposition.
[2018-05-20] MEDS ORDERED: Sodium Chloride 0.9% 1,000 ML ONE (15:29)
[2018-05-20 15:51] LABS: BASO % 0.4 % (0.0-2.0); EOS # 0.1 K/uL (0.0-0.7); EOS % 1.6 % (0.0-4.0); HEMOGLOBIN 11.3 g/dL (11.0-16.0); LYMPH # 2.8 K/uL (1.0-4.3); LYMPH % 37.9 % (20.0-40.0); MEAN CELL VOLUME 87.7 fL (81.0-99.0); MEAN CORPUSCULAR HEMOGLOBIN 28.9 pg (27.0-31.0); MEAN PLATELET VOLUME 9.5 fL (7.2-11.7); MONO # 0.5 K/uL (0.0-0.8); MONO % 7.1 % (0.0-10.0); NEUT # 3.9 K/uL (1.8-7.0); RBC 3.91 Mil/uL (3.80-5.20); RED CELL DISTRIBUTION WIDTH 14.2 % (11.5-14.5); WHITE BLOOD COUNT 7.3 K/uL (4.8-10.8)
[2018-05-20 16:04] LABS: ALB/GLOB RATIO 1.4 (1.0-2.1); CALCIUM 9.2 mg/dl (8.6-10.4)
--- NOTE | 2018-05-20 16:10 | RAD ---
Date of service: 05/20/2018 PROCEDURE: CHEST RADIOGRAPH, 1 VIEW HISTORY: SOB COMPARISON: 09/20/2017 FINDINGS: LUNGS: The lungs are well inflated. There is moderate pulmonary venous congestion. PLEURA: No pneumothorax or pleural effusion. CARDIOVASCULAR: Persistent moderate cardiomegaly. Atherosclerotic aortic arch calcifications are present. Status post CABG. OSSEOUS STRUCTURES: Within normal limits for the patient's age. VISUALIZED UPPER ABDOMEN: Normal. OTHER FINDINGS: None. IMPRESSION: Moderate cardiomegaly and pulmonary venous congestion. No active pulmonary disease.
--- NOTE | 2018-05-20 16:14 | CT ---
Date of service: 05/20/2018 PROCEDURE: CT HEAD WITHOUT CONTRAST. HISTORY: dizziness COMPARISON: None available. TECHNIQUE: Axial computed tomography images were obtained through the head/brain without intravenous contrast. Radiation dose: Total exam DLP = 1048.55 mGy-cm. This CT exam was performed using one or more of the following dose reduction techniques: Automated exposure control, adjustment of the mA and/or kV according to patient size, and/or use of iterative reconstruction technique. FINDINGS: HEMORRHAGE: No intracranial hemorrhage. BRAIN: No mass effect or edema. Atrophy. Chronic microvascular ischemic changes. Right basal ganglia lacunar infarction. VENTRICLES: Unremarkable. No hydrocephalus. CALVARIUM: Unremarkable. PARANASAL SINUSES: Unremarkable as visualized. No significant inflammatory changes. MASTOID AIR CELLS: Right mastoid air cell opacification. OTHER FINDINGS: None. IMPRESSION: No acute intracranial pathology. Right mastoid air cell opacification.
[2018-05-20 16:16] LABS: TROPONIN I 0.049 ng/mL (0.00-0.120)
[2018-05-20 17:59] LABS: SQUAMOUS EPITHIAL < 1 /hpf (0-5); URINE BACTERIA RARE (<OCC); URINE BILIRUBIN NEGATIVE (NEGATIVE); URINE BLOOD NEGATIVE (NEGATIVE); URINE CLARITY Clear (Clear); URINE COLOR Yellow (YELLOW); URINE GLUCOSE (UA) NORMAL (Normal); URINE LEUKOCYTE ESTERASE 1+ Leu/uL (Negative); URINE PROTEIN NEGATIVE (NEGATIVE); URINE UROBILINOGEN NORMAL mg/dL (0.2-1.0)
[2018-05-21] MEDS: Rosuvastatin Calcium 2.5 mg Tab PO SCH ×2 (00:34→23:28)
[2018-05-21] MEDS ORDERED: Lidocaine 5% Oint(35 gm) TOP ONE (02:02)
--- NOTE | 2018-05-21 06:07 | CP.PCM.PCO ---
Addendum Addendum: 05/21/18 06:06 House doc note: Paged by nurse after patient complained of arm pain. As per daughter, patient uses Voltaren gel at home. Lidocaine gel ordered.
[2018-05-21 06:40] LABS: BASO % 0.5 % (0.0-2.0); EOS # 0.1 K/uL (0.0-0.7); EOS % 1.4 % (0.0-4.0); HEMOGLOBIN 10.6 g/dL (11.0-16.0); LYMPH # 2.5 K/uL (1.0-4.3); LYMPH % 33.3 % (20.0-40.0); MEAN CELL VOLUME 88.3 fL (81.0-99.0); MEAN CORPUSCULAR HEMOGLOBIN 29.8 pg (27.0-31.0); MEAN CORPUSCULAR HGB CONC 33.7 g/dL (33.0-37.0); MEAN PLATELET VOLUME 9.9 fL (7.2-11.7); MONO # 0.6 K/uL (0.0-0.8); MONO % 8.3 % (0.0-10.0); NEUT # 4.2 K/uL (1.8-7.0); NEUT % 56.5 % (50.0-75.0); RBC 3.54 Mil/uL (3.80-5.20); RED CELL DISTRIBUTION WIDTH 14.2 % (11.5-14.5); WHITE BLOOD COUNT 7.5 K/uL (4.8-10.8)
[2018-05-21 06:54] LABS: ALB/GLOB RATIO 1.3 (1.0-2.1); ALBUMIN 3.7 g/dL (3.5-5.0); CALCIUM 8.6 mg/dl (8.6-10.4)
[2018-05-21 06:55] LABS: PROTHROMBIN TIME 48.8 SECONDS (9.7-12.2)
[2018-05-21 06:57] LABS: INR 4.4
--- NOTE | 2018-05-21 08:19 | PCM.RRT ---
WEB SERVICES DEVELOPER Nurses Assessment - Situation Date: 05/21/18 Time WEB SERVICES DEVELOPER was called: 07:55 WEB SERVICES DEVELOPER Responder Arrival Time:: 07:56 WEB SERVICES DEVELOPER Reason for Call: Chest Pain - Constitutional Appears: No Acute Distress Additional Comments: appears uncomfortable - Head Head Exam: ATRAUMATIC, NORMOCEPHALIC - Eyes Eye Exam: Normal appearance - Respiratory Exam Respiratory Exam: Rales. absent: Accessory Muscle Use, Clear to Ausculation Bilateral - Cardiovascular Exam Cardiovascular Exam: REGULAR RHYTHM, +S1, +S2, Murmur - GI/Abdominal Exam GI & Abdominal Exam: Soft. absent: Distended, Guarding, Tenderness - Neurological Exam Neurological Exam: Alert, Awake, CN II-XII Intact, Oriented x3 - Extremities Exam Extremities Exam: Normal Capillary Refill Plan - Assessment of Findings&Treatment Plan Rapid response was called at 07:55AM for chest pain and shortness of breath. Patient was admitted for syncope and dizziness. Patient is sitting down on the chair getting a portable CXR upon arrival of medical team. Repeat CXR showed worsening pulmonary congestion as compared to CXR on admission. Vitals upon arrival was: BP: 100/52, HR: 67, T: 98.9, O2: 95% on 2L, RR: 20 We gave patient Lasix 20mg IV, 1 dose of Rocephin 1g IV, and discontinued IV fluids. Urine culture ordered. Nephrology and cardiology consulted. Stat EKG, troponin, and renal ultrasound ordered. Ordered sharp catheter, strict I's&O's, daily weights, elevate bed to 45 degrees. Repeat vitals: BP: 118/52, HR: 62, RR:20, O2: 94% on 2L Admitting physician Dr. Rojo contacted and updated on the condition of the patient.
[2018-05-21 08:54] LABS: TROPONIN I 0.083 ng/mL (0.00-0.120)
--- NOTE | 2018-05-21 08:58 | RAD ---
Date of service: 05/21/2018 HISTORY: RAPID RESPONSE COMPARISON: Portable chest 05/20/2018 FINDINGS: LUNGS: Diminished inspiratory volume. Crowding of the perihilar and medial basilar bronchovascular markings identified bilaterally without definite airspace disease appreciated at this time. PLEURA: No significant pleural effusion identified, no pneumothorax apparent. CARDIOVASCULAR: Calcific atherosclerotic changes are seen related to the thoracic aorta. Cardiomegaly is stable. Borderline pulmonary vascular congestion. No pulmonary vascular congestion. OSSEOUS STRUCTURES: Sternotomy wires reiterated. VISUALIZED UPPER ABDOMEN: Normal. OTHER FINDINGS: None. IMPRESSION: Diminished inspiratory volume with crowded bronchovascular markings identified bilaterally. No acute infiltrate pleural effusion or pneumothorax identified. Borderline pulmonary vascular congestion. Stable cardiomegaly.
--- NOTE | 2018-05-21 13:35 | US ---
Date of service: 05/21/2018 PROCEDURE: Ultrasound of the Kidneys HISTORY: acute kidney injury COMPARISON: None available. TECHNIQUE: Sonogram of the kidneys. FINDINGS: RIGHT KIDNEY: Measures: 9.1 x 3.7 x 4.2 cm. Normal in size and contour however the corticomedullary differentiation is poor and there is increased parenchymal echogenicity suggesting intrinsic medical disease. A 5 mm midpole right renal echogenic focus is appreciate suspicious for small angiomyolipoma. No shadowing seen associated with it. A similar lesion is larger at the upper pole measure 1.2 cm suggestive of the same. No obstructive uropathy or definite urolithiasis. No perinephric fluid collection. LEFT KIDNEY: Measures: 10.8 x 4.6 x 5.0 cm. Normal size and contour with increased echogenicity and poor corticomedullary differentiation suggests of intrinsic medical renal disease. No stone, solid mass lesion or hydronephrosis visualized. No perinephric fluid collection. OTHER FINDINGS: The abdominal aorta is obscured by overlying bowel gas. There is a prominent right else lobe of the right lobe liver versus potential hepatomegaly. IMPRESSION: No obstructive uropathy bilaterally. Parenchymal changes are identified suspicious for intrinsic medical renal disease. 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 There is a prominent right else lobe of the right lobe liver versus potential hepatomegaly.
--- NOTE | 2018-05-21 16:15 | CP.PCM.CON ---
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 Patient had a PIE CRUST MIXER 2nd chest pain. after PIE CRUST MIXER, patient received norvasc. BP decreased to 90s/60. Later in the afternoon, lasix ordered 2nd patient being SOB; however BP low 2nd norvasc. ICU consulted for evaluation. Patient's BP low, afebrile, denies any leg swelling, denies any abdominal pain. (+)dizziness Pmx: heart failure, CKD, social history: never smoked, no illicit drug use family history: reviewed, defferred Review of Systems - Constitutional Constitutional: As Per HPI Past Patient History - Infectious Disease Hx of Infectious Diseases: None - Past Medical History & Family History Past Medical History?: Yes - Past Social History Smoking Status: Never Smoked - CARDIAC Hx Cardiac Disorders: Yes Hx Cardia Arrhythmia: Yes Hx Hypercholesterolemia: Yes Hx Hypertension: Yes - PULMONARY Hx Respiratory Disorders: Yes Hx Bronchitis: Yes - NEUROLOGICAL Hx Neurological Disorder: No - HEENT Hx HEENT Problems: Yes Hx Cataracts: Yes - RENAL Hx Chronic Kidney Disease: No - ENDOCRINE/METABOLIC Hx Endocrine Disorders: No - HEMATOLOGICAL/ONCOLOGICAL Hx Blood Disorders: No - INTEGUMENTARY Hx Dermatological Problems: No - MUSCULOSKELETAL/RHEUMATOLOGICAL Hx Musculoskeletal Disorders: Yes Hx Arthritis: Yes (KNEE; BACK) Hx Falls: No - GASTROINTESTINAL Hx Gastrointestinal Disorders: No - GENITOURINARY/GYNECOLOGICAL Hx Genitourinary Disorders: No - PSYCHIATRIC Hx Psychophysiologic Disorder: No Hx Substance Use: No - SURGICAL HISTORY Hx Surgeries: Yes Hx Valve Replacement: Yes (AORTIC) Other/Comment: "open heart surgery" as per melina in 1990 - ANESTHESIA Hx Anesthesia: Yes Hx Anesthesia Reactions: No Hx Malignant Hyperthermia: No Has any member of the family had a problem w/ anesthesia?: No Meds Allergies/Adverse Reactions: Allergies Allergy/AdvReac Type Severity Reaction Status Date / Time tramadol Allergy VOMITING Verified 05/20/18 18:18 - Medications Medications: Current Medications Diphenhydramine HCl (Benadryl) 25 mg PO HS PRN PRN Reason: Sleep Furosemide (Lasix) 20 mg IVP ONCE ONE Stop: 05/21/18 20:01 Furosemide (Lasix) 20 mg IVP DAILY [facility] Last Admin: 05/21/18 15:25 Dose: Not Given Gabapentin (Neurontin) 100 mg PO TID [facility] Last Admin: 05/21/18 13:17 Dose: 100 mg Lactulose (Enulose) 20 gm PO [facility] Last Admin: 05/21/18 00:33 Dose: 20 gm Montelukast Sodium (Singulair) 10 mg PO [facility] Last Admin: 05/21/18 00:34 Dose: 10 mg Rosuvastatin Calcium (Crestor) 2.5 mg PO [facility] Last Admin: 05/21/18 00:34 Dose: 2.5 mg Physical Exam - Constitutional Appears: Well - Head Exam Head Exam: ATRAUMATIC, NORMAL INSPECTION, NORMOCEPHALIC - Eye Exam Eye Exam: EOMI - ENT Exam ENT Exam: Mucous Membranes Moist - Respiratory Exam Respiratory Exam: Clear to Auscultation Bilateral, Rales - Cardiovascular Exam Cardiovascular Exam: REGULAR RHYTHM, +S1, +S2, Systolic Murmur - GI/Abdominal Exam GI & Abdominal Exam: Normal Bowel Sounds, Soft. absent: Firm, Guarding, Hernia, Rebound, Rigid - Neurological Exam Neurological exam: Alert - Skin Skin Exam: Normal Color Results - Vital Signs Recent Vital Signs: Last Vital Signs Temp 98.6 F 05/21/18 15:00 Pulse 54 L 05/21/18 16:01 Resp 20 05/21/18 15:00 BP 84/46 L 05/21/18 15:25 Pulse Ox 98 05/21/18 15:00 - Labs Result Diagrams: 05/22/18 06:36 05/22/18 06:36 Labs: Laboratory Results - last 24 hr 05/20/18 05/20/18 05/21/18 15:43 17:49 06:18 WBC 7.5 RBC 3.54 L Hgb 10.6 L Hct 31.3 L MCV 88.3 MCH 29.8 MCHC 33.7 RDW 14.2 Plt Count 226 MPV 9.9 Neut % (Auto) 56.5 Lymph % (Auto) 33.3 [place] % (Auto) 8.3 Eos % (Auto) 1.4 Baso % (Auto) 0.5 Neut # (Auto) 4.2 Lymph # (Auto) 2.5 [place] # (Auto) 0.6 Eos # (Auto) 0.1 Baso # (Auto) 0.0 PT INR Sodium Potassium Chloride Carbon Dioxide Anion Gap BUN Creatinine Est GFR ( Amer) Est GFR (Non-Af Amer) Random Glucose Calcium Magnesium 2.5 H Total Bilirubin AST ALT Alkaline Phosphatase Total Creatine Kinase Troponin I 0.0490 NT-Pro-B Natriuret Pep 4820 H Total Protein Albumin Globulin Albumin/Globulin Ratio TSH 3rd Generation 1.89 Urine Color Yellow Urine Clarity Clear Urine pH 5.0 Ur Specific [place] 1.005 Urine Protein Negative Urine Glucose (UA) Normal Urine Ketones Negative Urine Blood Negative Urine Nitrate Negative Urine Bilirubin Negative Urine Urobilinogen Normal Ur Leukocyte Esterase 1+ H Urine WBC (Auto) 6 H Urine RBC (Auto) 1 Ur Squamous Epith Cells < 1 Urine Bacteria Rare 05/21/18 05/21/18 05/21/18 06:18 06:18 08:08 WBC RBC Hgb Hct MCV MCH MCHC RDW Plt Count MPV Neut % (Auto) Lymph % (Auto) [place] % (Auto) Eos % (Auto) Baso % (Auto) Neut # (Auto) Lymph # (Auto) [place] # (Auto) Eos # (Auto) Baso # (Auto) PT 48.8 H INR 4.4 H* Sodium 137 Potassium 5.1 Chloride 108 H Carbon Dioxide 16 L Anion Gap 17 BUN 64 H Creatinine 3.1 H Est GFR ( Amer) 18 Est GFR (Non-Af Amer) 14 Random Glucose 91 Calcium 8.6 Magnesium Total Bilirubin 0.6 AST 23 ALT 24 Alkaline Phosphatase 100 Total Creatine Kinase 37 Troponin I 0.0830 NT-Pro-B Natriuret Pep Total Protein 6.5 Albumin 3.7 Globulin 2.9 Albumin/Globulin Ratio 1.3 TSH 3rd Generation Urine Color Urine Clarity Urine pH Ur Specific [place] Urine Protein Urine Glucose (UA) Urine Ketones Urine Blood Urine Nitrate Urine Bilirubin Urine Urobilinogen Ur Leukocyte Esterase Urine WBC (Auto) Urine RBC (Auto) Ur Squamous Epith Cells Urine Bacteria Assessment & Plan - Assessment and Plan (Free Text) Assessment: Nausea/vomitting: check amylase/lipase, CT abd.pelvis, keep NPO, if lipase normal, start oral diet -chronic heart failure: continue bi-pap, avoid norvasc, with JONATHAN/CKD avoid ACEI, avoid fluid overloaded states -metallic aortic valve: INR > 2.0, HR controlled -Hypercapneic respiratory failrue:avoid sedation, continue bi-pap at night -JONATHAN/CKD: obtain renal consult -continue dvt pux ppx Patient will benefit from ICU level care until norvasc metabolized out and hypotensoin resolved. - Date & Time Date: 05/21/18 Time: 19:00
[2018-05-21 16:50] LABS: SQUAMOUS EPITHIAL 5 /hpf (0-5); URINE AMORPHOUS SEDIMENT MODERATE /ul (<OCC); URINE BACTERIA OCC (<OCC); URINE BILIRUBIN NEGATIVE (NEGATIVE); URINE BLOOD 3+ (NEGATIVE); URINE CLARITY Turbid (Clear); URINE COLOR Red (YELLOW); URINE GLUCOSE (UA) NORMAL (Normal); URINE LEUKOCYTE ESTERASE TRACE Leu/uL (Negative); URINE PROTEIN 2+ mg/dL (NEGATIVE); URINE UROBILINOGEN NORMAL mg/dL (0.2-1.0); WBC CLUMPS MOD /hpf
[2018-05-21 16:51] LABS: ABG ALLEN TEST POS; ARTERIAL BLOOD GAS HCO3 19.9 mmol/L (21-28); ARTERIAL BLOOD GAS O2 SAT 99.6 % (95-98); ARTERIAL BLOOD GAS PCO2 41 mm/Hg (35-45); ARTERIAL BLOOD GAS PH 7.29 (7.35-7.45); ARTERIAL BLOOD GAS PO2 121 mm/Hg (80-100)
[2018-05-21 17:37] LABS: TROPONIN I 0.091 ng/mL (0.00-0.120)
--- NOTE | 2018-05-21 17:44 | CT ---
Date of service: 05/21/2018 PROCEDURE: CT Abdomen and Pelvis without intravenous contrast HISTORY: r/o obstruction COMPARISON: Complete abdomen ultrasound 12/11/2014. TECHNIQUE: Helical CT of the abdomen and pelvis was performed without oral or intravenous contrast as per referring physician request. Coronal and sagittal reformats were generated. Contrast dose: None Radiation dose: Total exam DLP = 1014.87 mGy-cm. This CT exam was performed using one or more of the following dose reduction techniques: Automated exposure control, adjustment of the mA and/or kV according to patient size, and/or use of iterative reconstruction technique. FINDINGS: LOWER THORAX: A 7 mm noncalcified nodule is identified at the right middle lobe base in image 9 series 3 though this could be a scar. There is cardiomegaly. Prior sternotomy is noted with aortic prosthetic valve. LIVER: Unremarkable. No gross lesion or ductal dilatation. GALLBLADDER AND BILE DUCTS: Unremarkable. PANCREAS: Unremarkable. No gross lesion or ductal dilatation. SPLEEN: Unremarkable. ADRENALS: Unremarkable. No mass. KIDNEYS AND URETERS: Unremarkable. No hydronephrosis. No solid mass. VASCULATURE: Nonaneurysmal abdominal aortic calcific atherosclerotic changes are identified. BOWEL: Stomach is only minimally distended with retained air and food is limited in evaluation. Evaluation of the gastrointestinal tract is limited due to the lack of oral contrast administration. Moderate retained fecal material is scattered throughout the large bowel. No gross mural thickening or pericolic reaction. APPENDIX: Unremarkable. Normal appendix. PERITONEUM: No mesenteric edema or ascites. There is a small umbilical hernia containing only mesenteric fat. LYMPH NODES: Unremarkable. No enlarged lymph nodes. BLADDER: Pérez catheter decompresses urinary bladder. REPRODUCTIVE: Unremarkable. 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 OTHER FINDINGS: A large left gluteus lipoma is appreciate measuring 7.7 x 10.0 cm. IMPRESSION: 1. Mild constipation pattern affects the large bowel. No bowel obstruction, mesenteric edema, ascites or free intra peritoneal gas collection identified. 2. Pérez catheter decompresses urinary bladder. 3. 7mm scar or nodule seen the right middle lobe. Tissue diagnosis should be considered for follow-up or six-month follow-up chest CT. This may be too small for PET CT to evaluate.
--- NOTE | 2018-05-21 22:01 | CP.PCM.CON ---
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 hx obtained from daughter due to language barrier no prior hx of ckd no urinary complaints complete ros is negative pmfsh unremarkable social hx non smoker no alcohol meds reviewed vitals reviewed heent normal o pmoist no jvd s1s2 present decreased bs bases, crackles at bases abd soft nt nd edema trace sharp + ao times 3 normal affect jax/chf/ckd?/sob jax prerenal from chf with volume overload, monitor I&Os agree with lasix check urine studies and renal USG she complains of muscle pain all over, check cpk levels lytes reviewed acidosis monitor dose meds for reduced gfr Past Patient History - Infectious Disease Hx of Infectious Diseases: None - Past Medical History & Family History Past Medical History?: Yes - Past Social History Smoking Status: Never Smoked - CARDIAC Hx Cardiac Disorders: Yes Hx Cardia Arrhythmia: Yes Hx Hypercholesterolemia: Yes Hx Hypertension: Yes - PULMONARY Hx Respiratory Disorders: Yes Hx Bronchitis: Yes - NEUROLOGICAL Hx Neurological Disorder: No - HEENT Hx HEENT Problems: Yes Hx Cataracts: Yes - RENAL Hx Chronic Kidney Disease: No - ENDOCRINE/METABOLIC Hx Endocrine Disorders: No - HEMATOLOGICAL/ONCOLOGICAL Hx Blood Disorders: No - INTEGUMENTARY Hx Dermatological Problems: No - MUSCULOSKELETAL/RHEUMATOLOGICAL Hx Musculoskeletal Disorders: Yes Hx Arthritis: Yes (KNEE; BACK) Hx Falls: No - GASTROINTESTINAL Hx Gastrointestinal Disorders: No - GENITOURINARY/GYNECOLOGICAL Hx Genitourinary Disorders: No - PSYCHIATRIC Hx Psychophysiologic Disorder: No Hx Substance Use: No - SURGICAL HISTORY Hx Surgeries: Yes Hx Valve Replacement: Yes (AORTIC) Other/Comment: "open heart surgery" as per melina in 1990 - ANESTHESIA Hx Anesthesia: Yes Hx Anesthesia Reactions: No Hx Malignant Hyperthermia: No Has any member of the family had a problem w/ anesthesia?: No Meds Allergies/Adverse Reactions: Allergies Allergy/AdvReac Type Severity Reaction Status Date / Time tramadol Allergy VOMITING Verified 05/20/18 18:18 - Medications Medications: Current Medications Furosemide (Lasix) 20 mg IVP DAILY [facility] Last Admin: 05/21/18 15:25 Dose: Not Given Gabapentin (Neurontin) 100 mg PO TID [facility] Last Admin: 05/21/18 18:40 Dose: 100 mg Lactulose (Enulose) 20 gm PO [facility] Last Admin: 05/21/18 00:33 Dose: 20 gm Montelukast Sodium (Singulair) 10 mg PO [facility] Last Admin: 05/21/18 00:34 Dose: 10 mg Pantoprazole Sodium (Protonix Inj) 40 mg IVP Q12H [facility] Last Admin: 05/21/18 17:11 Dose: 40 mg Rosuvastatin Calcium (Crestor) 2.5 mg PO [facility] Last Admin: 05/21/18 00:34 Dose: 2.5 mg Results - Vital Signs Recent Vital Signs: Last Vital Signs Temp 97.8 F 05/21/18 17:20 Pulse 52 L 05/21/18 18:58 Resp 20 05/21/18 15:00 BP 84/46 L 05/21/18 15:25 Pulse Ox 98 05/21/18 15:00 - Labs Result Diagrams: 05/21/18 06:18 05/21/18 06:18 Labs: Laboratory Results - last 24 hr 05/21/18 05/21/18 05/21/18 06:18 06:18 06:18 WBC 7.5 RBC 3.54 L Hgb 10.6 L Hct 31.3 L MCV 88.3 MCH 29.8 MCHC 33.7 RDW 14.2 Plt Count 226 MPV 9.9 Neut % (Auto) 56.5 Lymph % (Auto) 33.3 Schuyler % (Auto) 8.3 Eos % (Auto) 1.4 Baso % (Auto) 0.5 Neut # (Auto) 4.2 Lymph # (Auto) 2.5 Schuyler # (Auto) 0.6 Eos # (Auto) 0.1 Baso # (Auto) 0.0 PT 48.8 H INR 4.4 H* Puncture Site pCO2 pO2 HCO3 ABG pH ABG Total CO2 ABG O2 Saturation ABG Base Excess Saqib Test ABG Potassium A-a O2 Difference Respiratory Index Glucose Lactate Liter Flow FiO2 Sodium 137 Potassium 5.1 Chloride 108 H Carbon Dioxide 16 L Anion Gap 17 BUN 64 H Creatinine 3.1 H Est GFR ( Amer) 18 Est GFR (Non-Af Amer) 14 Random Glucose 91 Lactic Acid Calcium 8.6 Total Bilirubin 0.6 AST 23 ALT 24 Alkaline Phosphatase 100 Total Creatine Kinase Troponin I Total Protein 6.5 Albumin 3.7 Globulin 2.9 Albumin/Globulin Ratio 1.3 Amylase Lipase Arterial Blood Potassium Urine Color Urine Clarity Urine pH Ur Specific Drew Urine Protein Urine Glucose (UA) Urine Ketones Urine Blood Urine Nitrate Urine Bilirubin Urine Urobilinogen Ur Leukocyte Esterase Urine WBC (Auto) Urine RBC (Auto) Urine WBC Clumps (Auto) Ur Squamous Epith Cells Amorphous Sediment Urine Bacteria Hyaline Casts Urine Yeast (Budding) 05/21/18 05/21/18 05/21/18 08:08 16:30 16:45 WBC RBC Hgb Hct MCV MCH MCHC RDW Plt Count MPV Neut % (Auto) Lymph % (Auto) Schuyler % (Auto) Eos % (Auto) Baso % (Auto) Neut # (Auto) Lymph # (Auto) Schuyler # (Auto) Eos # (Auto) Baso # (Auto) PT INR Puncture Site pCO2 pO2 HCO3 ABG pH ABG Total CO2 ABG O2 Saturation ABG Base Excess Saiqb Test ABG Potassium A-a O2 Difference Respiratory Index Glucose Lactate Liter Flow FiO2 Sodium Potassium Chloride Carbon Dioxide Anion Gap BUN Creatinine Est GFR ( Amer) Est GFR (Non-Af Amer) Random Glucose Lactic Acid Calcium Total Bilirubin AST ALT Alkaline Phosphatase Total Creatine Kinase 37 Troponin I 0.0830 0.0910 Total Protein Albumin Globulin Albumin/Globulin Ratio Amylase 75 Lipase 131 Arterial Blood Potassium Urine Color Red Urine Clarity Turbid Urine pH 5.0 Ur Specific Drew 1.011 Urine Protein 2+ H Urine Glucose (UA) Normal Urine Ketones Negative Urine Blood 3+ H Urine Nitrate Negative Urine Bilirubin Negative Urine Urobilinogen Normal Ur Leukocyte Esterase Trace Urine WBC (Auto) 25 H Urine RBC (Auto) 47 H Urine WBC Clumps (Auto) Mod H Ur Squamous Epith Cells 5 Amorphous Sediment Moderate H Urine Bacteria Occ H Hyaline Casts 6-10 H Urine Yeast (Budding) Few H 05/21/18 05/21/18 16:45 16:48 WBC RBC Hgb Hct MCV MCH MCHC RDW Plt Count MPV Neut % (Auto) Lymph % (Auto) Schuyler % (Auto) Eos % (Auto) Baso % (Auto) Neut # (Auto) Lymph # (Auto) Schuyler # (Auto) Eos # (Auto) Baso # (Auto) PT INR Puncture Site Rr pCO2 41 pO2 121 H HCO3 19.9 L ABG pH 7.29 L ABG Total CO2 21.0 L ABG O2 Saturation 99.6 H ABG Base Excess -6.5 L Saqib Test Pos ABG Potassium 4.5 A-a O2 Difference 84.0 Respiratory Index 0.7 Glucose 92 Lactate 0.7 Liter Flow 4.0 FiO2 36.0 Sodium 136.0 Potassium Chloride 110.0 H Carbon Dioxide Anion Gap BUN Creatinine Est GFR ( Amer) Est GFR (Non-Af Amer) Random Glucose Lactic Acid 0.7 Calcium Total Bilirubin AST ALT Alkaline Phosphatase Total Creatine Kinase Troponin I Total Protein Albumin Globulin Albumin/Globulin Ratio Amylase Lipase Arterial Blood Potassium 4.5 Urine Color Urine Clarity Urine pH Ur Specific Drew Urine Protein Urine Glucose (UA) Urine Ketones Urine Blood Urine Nitrate Urine Bilirubin Urine Urobilinogen Ur Leukocyte Esterase Urine WBC (Auto) Urine RBC (Auto) Urine WBC Clumps (Auto) Ur Squamous Epith Cells Amorphous Sediment Urine Bacteria Hyaline Casts Urine Yeast (Budding)
[2018-05-21] MEDS ORDERED: Sodium Chloride 0.45% 1,000 ML IV SCH (22:15)
--- NOTE | 2018-05-21 22:36 | CON ---
DATE: 05/21/2018 CARDIOLOGY CONSULTATION REASON FOR CONSULTATION: Shortness of breath, dizziness, and near syncope. 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 Has a history of chronic obstructive lung disease with history of multiple admissions for exacerbation of chronic obstructive lung disease. The patient presented because of dizziness, imbalance, nausea and vomiting, which has been there since the last week. The patient also started to experience left flank pain. Denies any dysuria or hematuria. The patient did feel cold last Wednesday, but does not recall having fever or chills. PAST MEDICAL HISTORY: Chronic obstructive lung disease, aortic valve replacement with metallic valve in the early 1989, history of hypertension. SOCIAL HISTORY: Nonsmoker. She lives by herself with frequent visits from her family members. MEDICATIONS: Coumadin 2 mg to be given today, Crestor 2.5 mg once a day, lactulose 20 mg at bedtime, Lasix 20 mg intravenously once as given, Neurontin 100 mg t.i.d., Norvasc 5 mg once a day, Zebeta 5 mg p.o. at bedtime. PHYSICAL EXAMINATION: GENERAL: The patient is an elderly female who does not appear to be in acute distress. VITAL SIGNS: Blood pressure 100/52, heart rate 60, temperature 98.9, respirations 22. HEENT: Normocephalic. CHEST: Bilateral coarse crepitations basally. HEART: S1 and S2 are regular. Grade 4/6 ejection systolic murmur over the left sternal border. ABDOMEN: Soft.. EXTREMITIES: No edema. LABORATORY DATA: Today's SMA-7: Sodium 137, potassium 5.1, chloride 108, CO2 of 16, glucose 91, BUN 64, creatinine 3.1. Two sets of troponins are negative. ProBNP is 4820. INR is 4.4. The patient's hemoglobin and hematocrit 10.6 and 31.3, white count and platelet count are within normal limits. Head CT scan without contrast: No acute findings. Chest x-ray was done twice. The second x-ray following rapid response revealed worsening of pulmonary congestion. Renal ultrasound revealed no obstructive uropathy bilaterally. Parenchymal changes are identified, suspicious for intrinsic medical renal disease. Two echogenic parenchymal foci seen in the upper mid pole of right kidney suggestive of benign angiomyolipomata. Potential hepatomegaly. EKG revealed sinus bradycardia at the rate of 56. Consider inferior lateral ischemic T-wave changes. ASSESSMENT: 1. Dehydration and prerenal azotemia. 2. Ischemic inferior lateral T-wave changes. 3. Status post aortic valve replacement. The most recent echocardiogram in 09/2017 is also consistent with moderate aortic stenosis. 4. Rule out underlying sepsis. 5. Chronic obstructive lung disease. 6. Volume overload. 7. Mild iatrogenic coagulopathy. RECOMMENDATIONS: Hold Coumadin today. Hold Zebeta. Start Lasix 20 mg intravenously daily. Continue Norvasc 5 mg daily. Obtain urinalysis, urine culture, and two sets of blood cultures. Overall hydration has been encouraged for now. I did request serum lipase level. I recommend obtaining either abdominal ultrasound or abdominopelvic CT scan without contrast. Jacky Fay MD
[2018-05-21 23:18] LABS: CREATININE, RANDOM URINE 52.9 mg/dL
[2018-05-22 06:40] LABS: BASO % 0.6 % (0.0-2.0); EOS # 0.1 K/uL (0.0-0.7); EOS % 0.9 % (0.0-4.0); HEMOGLOBIN 10.6 g/dL (11.0-16.0); LYMPH # 2.9 K/uL (1.0-4.3); LYMPH % 37.2 % (20.0-40.0); MEAN CELL VOLUME 88.2 fL (81.0-99.0); MEAN CORPUSCULAR HEMOGLOBIN 30.1 pg (27.0-31.0); MEAN CORPUSCULAR HGB CONC 34.1 g/dL (33.0-37.0); MEAN PLATELET VOLUME 10.6 fL (7.2-11.7); MONO # 0.7 K/uL (0.0-0.8); MONO % 9.3 % (0.0-10.0); RBC 3.5 Mil/uL (3.80-5.20); RED CELL DISTRIBUTION WIDTH 14.4 % (11.5-14.5); WHITE BLOOD COUNT 7.7 K/uL (4.8-10.8)
[2018-05-22 07:32] LABS: ALB/GLOB RATIO 1.3 (1.0-2.1); ALBUMIN 3.4 g/dL (3.5-5.0); CALCIUM 8.6 mg/dl (8.6-10.4)
--- NOTE | 2018-05-22 10:20 | CP.PCM.PN ---
Subjective - Date & Time of Evaluation Date of Evaluation: 05/22/18 Time of Evaluation: 10:23 - Subjective Subjective: Patient awake, alert, not dyspneic, dizziness resolved. Objective - Vital Signs/Intake and Output Vital Signs (last 24 hours): Temp Pulse Resp BP Pulse Ox 99.5 F 64 17 123/44 L 98 05/22/18 07:00 05/22/18 07:00 05/22/18 07:00 05/22/18 07:00 05/22/18 07:00 Intake and Output: 05/22/18 05/22/18 06:59 18:59 Intake Total 45 Output Total 900 Balance -855 - Medications Medications: Current Medications Furosemide (Lasix) 20 mg IVP DAILY [facility] Last Admin: 05/21/18 15:25 Dose: Not Given Gabapentin (Neurontin) 100 mg PO TID [facility] Last Admin: 05/21/18 18:40 Dose: 100 mg Lactulose (Enulose) 20 gm PO [facility] Last Admin: 05/21/18 23:29 Dose: 20 gm Montelukast Sodium (Singulair) 10 mg PO [facility] Last Admin: 05/21/18 23:28 Dose: 10 mg Pantoprazole Sodium (Protonix Inj) 40 mg IVP Q12H [facility] Last Admin: 05/22/18 05:00 Dose: 40 mg Rosuvastatin Calcium (Crestor) 2.5 mg PO [facility] Last Admin: 05/21/18 23:28 Dose: 2.5 mg - Labs Labs: 05/22/18 06:36 05/22/18 06:36 PT 48.8 SECONDS (9.7-12.2) H 05/21/18 06:18 INR 4.4 H* 05/21/18 06:18 - Head Exam Head Exam: ATRAUMATIC, NORMAL INSPECTION, NORMOCEPHALIC - Eye Exam Pupil Exam: PERRL - Neck Exam Neck Exam: Full ROM - Respiratory Exam Respiratory Exam: Clear to Ausculation Bilateral, NORMAL BREATHING PATTERN. absent: Accessory Muscle Use, Respiratory Distress - Cardiovascular Exam Cardiovascular Exam: REGULAR RHYTHM, +S1, +S2, Murmur - GI/Abdominal Exam GI & Abdominal Exam: Soft, Normal Bowel Sounds. absent: Tenderness, Mass, Rebound - Extremities Exam Extremities Exam: Normal Inspection - Neurological Exam Neurological Exam: Alert, Awake, Oriented x3 Assessment and Plan - Assessment and Plan (Free Text) Assessment: Nausea/vomitting: resolved, tolerating oral diet -chronic heart failure: continue bi-pap, avoid norvasc, with JONATHAN/CKD avoid ACEI, avoid fluid overloaded states -metallic aortic valve: INR > 2.0, HR controlled -Hypercapneic respiratory failrue:avoid sedation, continue bi-pap at night -JONATHAN/CKD: obtain renal consult -continue dvt pux ppx Hypotension resolved. PT/OT oob to chair daily Patient remains hemodynamically stable
--- NOTE | 2018-05-22 13:41 | CP.PCM.CON ---
History of Present Illness - History of Present Illness History of Present Illness: 78 yo Female with pmh/o Hypertension, HLD, CAD, cardiac arrythmias, Arthritis, CKD was admitted with cc/o nausea, vomitings, diarrhea, b/l flank pain x 2weeks. s/p hypotension last night , s/p [employer] and transferred to icu. renal co nsult is requested for evaluation of ckd. s.cr 3.3. her base line s.cr 0.9 was wnl. pt also c/o dysuria x 1-2 weeks, no fever, no cough, no sob, no cp, no palpitation, no edema of legs. Review of Systems - Review of Systems All systems: reviewed and no additional remarkable complaints except - Constitutional Constitutional: As Per HPI, Malaise, Weakness - EENT Eyes: As Per HPI Ears: As Per HPI Nose/Mouth/Throat: As Per HPI - Cardiovascular Cardiovascular: As Per HPI - Respiratory Respiratory: As Per HPI - Gastrointestinal Gastrointestinal: Nausea, Vomiting Additional comments: b/l flank pain - Genitourinary Genitourinary: As Per HPI, Dysuria - Musculoskeletal Musculoskeletal: As Per HPI - Neurological Neurological: As Per HPI - Psychiatric Psychiatric: As Per HPI - Endocrine Endocrine: As Per HPI - Hematologic/Lymphatic Hematologic: As Per HPI Past Patient History - Infectious Disease Hx of Infectious Diseases: None - Past Medical History & Family History Past Medical History?: Yes - Past Social History Smoking Status: Never Smoked - CARDIAC Hx Cardiac Disorders: Yes Hx Cardia Arrhythmia: Yes Hx Hypercholesterolemia: Yes Hx Hypertension: Yes - PULMONARY Hx Respiratory Disorders: Yes Hx Bronchitis: Yes - NEUROLOGICAL Hx Neurological Disorder: No - HEENT Hx HEENT Problems: Yes Hx Cataracts: Yes - RENAL Hx Chronic Kidney Disease: No - ENDOCRINE/METABOLIC Hx Endocrine Disorders: No - HEMATOLOGICAL/ONCOLOGICAL Hx Blood Disorders: No - INTEGUMENTARY Hx Dermatological Problems: No - MUSCULOSKELETAL/RHEUMATOLOGICAL Hx Musculoskeletal Disorders: Yes Hx Arthritis: Yes (KNEE; BACK) Hx Falls: No - GASTROINTESTINAL Hx Gastrointestinal Disorders: No - GENITOURINARY/GYNECOLOGICAL Hx Genitourinary Disorders: No - PSYCHIATRIC Hx Psychophysiologic Disorder: No Hx Substance Use: No - SURGICAL HISTORY Hx Surgeries: Yes Hx Valve Replacement: Yes (AORTIC) Other/Comment: "open heart surgery" as per melina in 1990 - ANESTHESIA Hx Anesthesia: Yes Hx Anesthesia Reactions: No Hx Malignant Hyperthermia: No Has any member of the family had a problem w/ anesthesia?: No Meds Allergies/Adverse Reactions: Allergies Allergy/AdvReac Type Severity Reaction Status Date / Time tramadol Allergy VOMITING Verified 05/20/18 18:18 - Medications Medications: Current Medications Furosemide (Lasix) 20 mg IVP DAILY [facility] Last Admin: 05/22/18 11:03 Dose: Not Given Gabapentin (Neurontin) 100 mg PO TID [facility] Last Admin: 05/22/18 11:01 Dose: 100 mg Lactulose (Enulose) 20 gm PO [facility] Last Admin: 05/21/18 23:29 Dose: 20 gm Montelukast Sodium (Singulair) 10 mg PO [facility] Last Admin: 05/21/18 23:28 Dose: 10 mg Pantoprazole Sodium (Protonix Inj) 40 mg IVP Q12H [facility] Last Admin: 05/22/18 05:00 Dose: 40 mg Rosuvastatin Calcium (Crestor) 2.5 mg PO [facility] Last Admin: 05/21/18 23:28 Dose: 2.5 mg Physical Exam - Constitutional Appears: Well, Non-toxic - Head Exam Head Exam: ATRAUMATIC, NORMAL INSPECTION, NORMOCEPHALIC - Eye Exam Eye Exam: EOMI, Normal appearance, PERRL Pupil Exam: NORMAL ACCOMODATION - ENT Exam ENT Exam: Mucous Membranes Dry - Neck Exam Neck exam: Positive for: Full Rom, Normal Inspection - Respiratory Exam Respiratory Exam: Rales, NORMAL BREATHING PATTERN Additional comments: occ left basal crackles - Cardiovascular Exam Cardiovascular Exam: REGULAR RHYTHM, +S1, +S2 - GI/Abdominal Exam GI & Abdominal Exam: Normal Bowel Sounds, Soft - Rectal Exam Rectal Exam: Deferred - Extremities Exam Additional comments: no edema, skin turgor is poor - Neurological Exam Neurological exam: Abnormal Gait, CN II-XII Intact, Oriented x3 - Psychiatric Exam Psychiatric exam: Normal Mood - Skin Skin Exam: Dry, Intact, Normal Color, Warm Results - Vital Signs Recent Vital Signs: Last Vital Signs Temp 99.5 F 05/22/18 07:00 Pulse 64 05/22/18 07:00 Resp 17 05/22/18 07:00 BP 101/46 L 05/22/18 11:03 Pulse Ox 98 05/22/18 07:00 - Labs Result Diagrams: 05/22/18 06:36 05/22/18 06:36 Labs: Laboratory Results - last 24 hr 05/21/18 05/21/18 05/21/18 16:30 16:45 16:45 WBC RBC Hgb Hct MCV MCH MCHC RDW Plt Count MPV Neut % (Auto) Lymph % (Auto) Kidder % (Auto) Eos % (Auto) Baso % (Auto) Neut # (Auto) Lymph # (Auto) Kidder # (Auto) Eos # (Auto) Baso # (Auto) Puncture Site pCO2 pO2 HCO3 ABG pH ABG Total CO2 ABG O2 Saturation ABG Base Excess Saqib Test ABG Potassium A-a O2 Difference Respiratory Index Sodium Chloride Glucose Lactate Liter Flow FiO2 Potassium Carbon Dioxide Anion Gap BUN Creatinine Est GFR ( Amer) Est GFR (Non-Af Amer) Random Glucose Lactic Acid 0.7 Calcium Total Bilirubin AST ALT Alkaline Phosphatase Troponin I 0.0910 Total Protein Albumin Globulin Albumin/Globulin Ratio Amylase 75 Lipase 131 Arterial Blood Potassium Urine Color Red Urine Clarity Turbid Urine pH 5.0 Ur Specific Sylvester 1.011 Urine Protein 2+ H Urine Glucose (UA) Normal Urine Ketones Negative Urine Blood 3+ H Urine Nitrate Negative Urine Bilirubin Negative Urine Urobilinogen Normal Ur Leukocyte Esterase Trace Urine WBC (Auto) 25 H Urine RBC (Auto) 47 H Urine WBC Clumps (Auto) Mod H Ur Squamous Epith Cells 5 Amorphous Sediment Moderate H Urine Bacteria Occ H Hyaline Casts 6-10 H Urine Yeast (Budding) Few H Urine Osmolality Ur Random Creatinine Ur Random Sodium Ur Random Potassium 05/21/18 05/21/18 05/22/18 16:48 23:03 00:08 WBC RBC Hgb Hct MCV MCH MCHC RDW Plt Count MPV Neut % (Auto) Lymph % (Auto) Kidder % (Auto) Eos % (Auto) Baso % (Auto) Neut # (Auto) Lymph # (Auto) Kidder # (Auto) Eos # (Auto) Baso # (Auto) Puncture Site Rr pCO2 41 pO2 121 H HCO3 19.9 L ABG pH 7.29 L ABG Total CO2 21.0 L ABG O2 Saturation 99.6 H ABG Base Excess -6.5 L Saqib Test Pos ABG Potassium 4.5 A-a O2 Difference 84.0 Respiratory Index 0.7 Sodium 136.0 Chloride 110.0 H Glucose 92 Lactate 0.7 Liter Flow 4.0 FiO2 36.0 Potassium Carbon Dioxide Anion Gap BUN Creatinine Est GFR ( Amer) Est GFR (Non-Af Amer) Random Glucose Lactic Acid Calcium Total Bilirubin AST ALT Alkaline Phosphatase Troponin I Total Protein Albumin Globulin Albumin/Globulin Ratio Amylase Lipase Arterial Blood Potassium 4.5 Urine Color Urine Clarity Urine pH Ur Specific Sylvester Urine Protein Urine Glucose (UA) Urine Ketones Urine Blood Urine Nitrate Urine Bilirubin Urine Urobilinogen Ur Leukocyte Esterase Urine WBC (Auto) Urine RBC (Auto) Urine WBC Clumps (Auto) Ur Squamous Epith Cells Amorphous Sediment Urine Bacteria Hyaline Casts Urine Yeast (Budding) Urine Osmolality 339 Ur Random Creatinine 52.9 Ur Random Sodium Cancelled 48 Ur Random Potassium Cancelled 42.5 05/22/18 05/22/18 06:36 06:36 WBC 7.7 RBC 3.50 L Hgb 10.6 L Hct 30.9 L MCV 88.2 MCH 30.1 MCHC 34.1 RDW 14.4 Plt Count 200 MPV 10.6 Neut % (Auto) 52.0 Lymph % (Auto) 37.2 Kidder % (Auto) 9.3 Eos % (Auto) 0.9 Baso % (Auto) 0.6 Neut # (Auto) 4.0 Lymph # (Auto) 2.9 Kidder # (Auto) 0.7 Eos # (Auto) 0.1 Baso # (Auto) 0.0 Puncture Site pCO2 pO2 HCO3 ABG pH ABG Total CO2 ABG O2 Saturation ABG Base Excess Saqib Test ABG Potassium A-a O2 Difference Respiratory Index Sodium 135 Chloride 106 Glucose Lactate Liter Flow FiO2 Potassium 4.7 Carbon Dioxide 20 L Anion Gap 14 BUN 68 H Creatinine 3.4 H Est GFR ( Amer) 16 Est GFR (Non-Af Amer) 13 Random Glucose 90 Lactic Acid Calcium 8.6 Total Bilirubin 0.6 AST 24 ALT 23 Alkaline Phosphatase 95 Troponin I Total Protein 6.1 L Albumin 3.4 L Globulin 2.7 Albumin/Globulin Ratio 1.3 Amylase Lipase Arterial Blood Potassium Urine Color Urine Clarity Urine pH Ur Specific Sylvester Urine Protein Urine Glucose (UA) Urine Ketones Urine Blood Urine Nitrate Urine Bilirubin Urine Urobilinogen Ur Leukocyte Esterase Urine WBC (Auto) Urine RBC (Auto) Urine WBC Clumps (Auto) Ur Squamous Epith Cells Amorphous Sediment Urine Bacteria Hyaline Casts Urine Yeast (Budding) Urine Osmolality Ur Random Creatinine Ur Random Sodium Ur Random Potassium lab date: FENA 1.9 s.cr 3.3 05/20/2018 s.cr 3.1 05/21/2018 s.cr 3.4 05/22/2018 s.cr 0.9 09/16/2017 Assessment & Plan - Assessment and Plan (Free Text) Assessment: 78 yo female with pmh/o htn, hld, cad, s/p Prosthetic Aortic valve, cad, cardiac arrythmias, arthritis, ckd was admitted with nausea, vomitings, diarrhea, b/l flank pain 1. Non oliguric Todd sec to ATN, FENA 1.9 2. r/o uti r/o pyeelo 3. dehydration 4. S/p AVR 5. s/p aortic valve replacement 6. s/p hypotension urine lytes, osm will restart ivf 1/2 s at 60 ml/hr start zosyn 2.5 gm ivpb q 8 hrs , first dose now daily bmp Plan: As above
[2018-05-22] MEDS ORDERED: Piperacillin/Tazobact 2.25 gm Inj IVPB SCH (14:00)
[2018-05-22] MEDS: Sodium Chloride 0.45% 1,000 ML IV SCH (14:05)
[2018-05-22] MEDS: Piperacill/Tazo 2.25gm in Dex 2.25 GM/50 ML BAG IVPB SCH ×2 (14:34→21:28)
--- NOTE | 2018-05-22 17:10 | PN ---
DATE: 05/22/2018 SUBJECTIVE: The patient is still lethargic. She is borderline normotensive. No reported arrhythmia and she did receive half liter of half normal saline overnight with urine output of 900 mL. PHYSICAL EXAMINATION: VITAL SIGNS: Blood pressure 123/44, heart rate 64, temperature 99.5, respirations 18. HEENT: Normocephalic. CHEST: Minimal bibasilar rales. HEART: S1 and S2, regular. ABDOMEN: Soft. EXTREMITIES: 1+ pitting edema. LABORATORY DATA: Today's BUN and creatinine are 68 and 3.4 respectively. Today's hemoglobin and hematocrit 10.6 and 30.9. White count and platelet count are within normal limits. Abdomen and pelvic CT scan, mild constipation pattern. No bowel obstruction, mesenteric edema, ascites or free intraperitoneal gas. ASSESSMENT: 1. Acute renal insufficiency. 2. Rule out underlying sepsis. 3. History of prosthetic aortic valve replacement in the early for severe aortic stenosis. RECOMMENDATIONS: Continue current Protonix 40 mg intravenously daily, Crestor 2.5 mg once a day. I will obtain INR today prior to administering any further Coumadin and the patient will be evaluated by Dr. Antonio, motor generator set operator, today. Jacky Fay MD
[2018-05-22 19:03] LABS: INR 3.6; PROTHROMBIN TIME 39.6 SECONDS (9.7-12.2)
--- NOTE | 2018-05-22 20:58 | HP ---
HISTORY OF PRESENT ILLNESS: This is a 78-year-old [place] female with history of multiple medical problems, presented to my office on the day of admission with symptoms of generalized weakness and dizziness, and loss of appetite with decreased oral intake. The patient's symptoms have been progressive over the last week prior to admission. The patient was taking antibiotic that she had at home before and when she was evaluated in the office, she was noticed to be pale and with generalized weakness. The patient was brought to emergency room for evaluation where she was found to have acute kidney injury with some pulmonary congestion. The patient denied having any nausea, vomiting, diarrhea and denied having cough or any other symptoms. The patient was evaluated in the emergency room and admitted for further management. REVIEW OF SYSTEMS: All other review of systems are negative. ALLERGIES: POSITIVE ALLERGY FOR TRAMADOL. MEDICATIONS: The patient's medications were reviewed and ordered as per MAR. SOCIAL HISTORY: No history of smoking, EtOH, or substance abuse. FAMILY HISTORY: Noncontributory. PAST MEDICAL HISTORY: Hypertension, mechanical valve prosthesis. FAMILY HISTORY: Not contributory. PHYSICAL EXAMINATION: GENERAL: The patient is in bed, , and not feeling well. VITAL SIGNS: Blood pressure 100/52, temperature 100.1, respiratory rate 20, and pulse 67. HEENT: Pupils equal, and reactive to light. Normal-appearing mucosa of the conjunctivae, oropharynx, and nasal membrane mucosa. NECK: Supple. No JVD. No carotid bruit. No lymph node. No thyromegaly. CHEST AND LUNGS: Bilateral symmetrical expansion. Good air exchange. No rales, no rhonchi. CARDIOVASCULAR SYSTEM: PMI not localized. S1, S2. No additional sounds. There is mechanical prosthetic valve found. ABDOMEN: Normoactive bowel sounds. No tenderness. No organomegaly. No masses. EXTREMITIES: No cyanosis, no clubbing, no edema. COBBLER SOLE: Alert, awake, and oriented x2. No neurological deficit could be appreciated. ASSESSMENT: Acute kidney injury, history of hypertension, status post mechanical valve replacement, on anticoagulant therapy. PLAN: We will continue IV fluids as tolerated. Renal consult. Resume the patient's home medications. ICU evaluation. Carlos Alberto Rojo MD [facility] # [id number]
[2018-05-22] MEDS: Rosuvastatin Calcium 2.5 mg Tab PO SCH (21:10)
--- NOTE | 2018-05-23 01:32 | PN ---
DATE: 05/22/2018 DAILY PROGRESS NOTE SUBJECTIVE: The patient is seen today, 05/22/2018. She is not in any cardiopulmonary distress today. PHYSICAL EXAMINATION: VITAL SIGNS: Blood pressure 116/46, temperature 98.2, respiratory rate 19, and pulse 63. HEENT: Pupils equal and reactive to light. Normal-appearing mucosa of the conjunctivae. NECK: Supple. No JVD. No carotid bruit. No lymph node. No thyromegaly. CHEST AND LUNGS: Bilateral symmetrical expansion. Few scattered rhonchi. CARDIOVASCULAR SYSTEM: PMI not localized. S1 and S2. No additional sounds. ABDOMEN: Normoactive bowel sounds. No tenderness. No organomegaly. No masses. EXTREMITIES: No cyanosis. No clubbing. No edema. CENTRAL NERVOUS SYSTEM: Alert, awake, oriented x3. No neurological deficit could be appreciated. ASSESSMENT: 1. Acute renal failure. 2. Hypertension. 3. Osteoarthritis. 4. Dehydration. PLAN: Continue current medications and management and follow recommendations of plsql developer. Check INR today and give warfarin accordingly. Carlos Alberto Rojo MD
[2018-05-23] MEDS: Piperacill/Tazo 2.25gm in Dex 2.25 GM/50 ML BAG IVPB SCH ×3 (06:31→22:24)
[2018-05-23] MEDS: Sodium Chloride 0.45% 1,000 ML IV SCH ×3 (06:32→17:32)
[2018-05-23 06:37] LABS: HEMOGLOBIN 10.4 g/dL (11.0-16.0); MEAN CELL VOLUME 88.1 fL (81.0-99.0); MEAN CORPUSCULAR HEMOGLOBIN 29.7 pg (27.0-31.0); MEAN CORPUSCULAR HGB CONC 33.7 g/dL (33.0-37.0); RBC 3.51 Mil/uL (3.80-5.20); RED CELL DISTRIBUTION WIDTH 14.3 % (11.5-14.5); WHITE BLOOD COUNT 7.6 K/uL (4.8-10.8)
[2018-05-23 06:53] LABS: PROTHROMBIN TIME 38.3 SECONDS (9.7-12.2)
[2018-05-23 06:55] LABS: INR 3.5
[2018-05-23 06:55] LABS: ALB/GLOB RATIO 1.2 (1.0-2.1); ALBUMIN 3.3 g/dL (3.5-5.0); CALCIUM 8.7 mg/dl (8.6-10.4)
[2018-05-23] MEDS: Pantoprazole 40 mg EC Tab PO SCH (09:27)
--- NOTE | 2018-05-23 12:12 | CARD ---
APPROVED REPORT Date of service: 05/20/2018 EKG Measurement Heart [id number] <Conclusion> Sinus bradycardia ST & T wave abnormality, consider inferior ischemia ST & T wave abnormality, consider anterolateral ischemia Abnormal ECG
[2018-05-23] MEDS ORDERED: Oxycodone/Acetaminophen 5/325 mg Tab PO STA (15:01)
--- NOTE | 2018-05-23 17:49 | CP.PCM.PN ---
Subjective - Date & Time of Evaluation Date of Evaluation: 05/23/18 Time of Evaluation: 17:49 - Subjective Subjective: 78 yo Female with pmh/o Hypertension, HLD, CAD, cardiac arrythmias, Aortic valve replacemengt , Arthritis, CKD was admitted with cc/o nausea, vomitings, diarrhea, b/l flank pain x 2weeks. s/p hypotension last night , s/p CHANGE ATTENDANT and t ransferred to icu. renal consult is requested for evaluation of ckd. s.cr 3.3. her base line s.cr 0.9 was wnl. pt also c/o dysuria x 1-2 weeks, no fever, no cough, no sob, no cp, no palpitation, no edema of legs. c/o generalized body pains Objective - Vital Signs/Intake and Output Vital Signs (last 24 hours): Temp Pulse Resp BP Pulse Ox 98.4 F 62 17 105/40 L 92 L 05/23/18 12:00 05/23/18 16:00 05/23/18 16:00 05/23/18 15:00 05/23/18 16:00 Intake and Output: 05/23/18 05/23/18 06:59 18:59 Intake Total 60 1010 Output Total 800 800 Balance -740 210 - Medications Medications: Current Medications Acetaminophen (Tylenol 325mg Tab) 650 mg PO Q6 PRN PRN Reason: Pain, Mild (1-3) Last Admin: 05/23/18 13:30 Dose: 650 mg Gabapentin (Neurontin) 100 mg PO TID [facility] Last Admin: 05/23/18 17:32 Dose: 100 mg Piperacillin Sod/Tazobactam Sod (Zosyn 2.25 Gm Iv Premix) 2.25 gm in 50 mls @ 100 mls/hr IVPB Q8H [facility] Stop: 05/27/18 14:01 Last Admin: 05/23/18 13:29 Dose: 100 mls/hr Sodium Chloride (Sodium Chloride 0.45%) 1,000 mls @ 70 mls/hr IV .[id number] [facility] Last Admin: 05/23/18 17:32 Dose: Not Given Lactulose (Enulose) 20 gm PO [facility] Last Admin: 05/22/18 21:25 Dose: 20 gm Montelukast Sodium (Singulair) 10 mg PO [facility] Last Admin: 05/22/18 21:06 Dose: 10 mg Pantoprazole Sodium (Protonix Ec Tab) 40 mg PO DAILY [facility] Last Admin: 05/23/18 09:27 Dose: 40 mg Rosuvastatin Calcium (Crestor) 2.5 mg PO HS [facility] Last Admin: 05/22/18 21:10 Dose: 2.5 mg - Labs Labs: 05/23/18 06:26 05/23/18 06:27 PT 38.3 SECONDS (9.7-12.2) H 05/23/18 06:26 INR 3.5 H* 05/23/18 06:26 - Constitutional Appears: Well, Non-toxic, In Acute Distress - Head Exam Head Exam: ATRAUMATIC, NORMAL INSPECTION, NORMOCEPHALIC - Eye Exam Eye Exam: EOMI, Normal appearance, PERRL Pupil Exam: NORMAL ACCOMODATION - ENT Exam ENT Exam: Mucous Membranes Dry - Neck Exam Neck Exam: Full ROM - Respiratory Exam Respiratory Exam: Rales, NORMAL BREATHING PATTERN Additional comments: left base crackles+ - Cardiovascular Exam Cardiovascular Exam: REGULAR RHYTHM, +S1, +S2 - GI/Abdominal Exam GI & Abdominal Exam: Soft, Normal Bowel Sounds - Rectal Exam Rectal Exam: Deferred - Extremities Exam Additional comments: no edema+ - Neurological Exam Neurological Exam: Alert, Awake, CN II-XII Intact, Oriented x3 - Psychiatric Exam Psychiatric exam: Normal Affect - Skin Skin Exam: Intact, Normal Color, Warm Assessment and Plan - Assessment and Plan (Free Text) Assessment: 78 yo female with pmh/o htn, hld, cad, s/p Prosthetic Aortic valve, cad, cardiac arrythmias, arthritis, ckd was admitted with nausea, vomitings, diarrhea, b/l flank pain 1. Non oliguric Todd sec to ATN, FENA 1.9 2. r/o uti r/o pyeelo 3. dehydration 4. S/p AVR 5. s/p aortic valve replacement 6. s/p hypotension renal function is improving will c/w ivf 1/2 s at 60 ml/h c/w iv abx, zosyn 2.5 gm ivpb q 8 hrs daily bmp check cpk level n am
--- NOTE | 2018-05-23 20:28 | PN ---
DATE: 05/23/2018 SUBJECTIVE: The patient is experiencing neck pain and upper back pain. She has adequate urine output. She denies any shortness of breath. PHYSICAL EXAMINATION VITAL SIGNS: Blood pressure 131/51, heart rate 69, temperature 98.4, respirations 23. HEENT: Normocephalic. CHEST: Minimal rhonchi. HEART: S1 and S2 regular. EXTREMITIES: Trace leg edema. LABORATORY DATA: Hemoglobin and hematocrit are 10.4 and 30.9. White count and platelet count are within normal limits. SMA-7: Sodium 136, potassium 4, chloride 106, CO2 of 19, glucose 112, BUN 66, creatinine 2.9. Today's INR is 3.5. Blood culture 24 hours. ASSESSMENT: 1. Acute renal insufficiency, consider acute tubular necrosis. 2. Status post aortic valve replacement in the early with residual moderate aortic stenosis. 3. Rule out sepsis. RECOMMENDATIONS: Hold Coumadin today. Continue Zosyn 2.25 g intravenously every 8 hours, Crestor 2.5 mg once a day and half normal saline 60 mL an hour. I did order stat 12-lead EKG and one tablet of Percocet to be given now. Jacky Fay MD
[2018-05-23] MEDS: Rosuvastatin Calcium 2.5 mg Tab PO SCH (22:20)
[2018-05-24] MEDS: Sodium Chloride 0.45% 1,000 ML IV SCH ×3 (06:04→21:22)
[2018-05-24] MEDS: Piperacill/Tazo 2.25gm in Dex 2.25 GM/50 ML BAG IVPB SCH ×3 (06:05→21:12)
[2018-05-24 07:33] LABS: BASO % 0.3 % (0.0-2.0); EOS # 0.2 K/uL (0.0-0.7); EOS % 2.3 % (0.0-4.0); HEMOGLOBIN 10.1 g/dL (11.0-16.0); LYMPH # 1.9 K/uL (1.0-4.3); LYMPH % 28.8 % (20.0-40.0); MEAN CELL VOLUME 88.2 fL (81.0-99.0); MEAN CORPUSCULAR HEMOGLOBIN 29.5 pg (27.0-31.0); MEAN CORPUSCULAR HGB CONC 33.5 g/dL (33.0-37.0); MEAN PLATELET VOLUME 10.4 fL (7.2-11.7); MONO # 0.6 K/uL (0.0-0.8); MONO % 9.2 % (0.0-10.0); NEUT % 59.4 % (50.0-75.0); RBC 3.43 Mil/uL (3.80-5.20); RED CELL DISTRIBUTION WIDTH 14.3 % (11.5-14.5); WHITE BLOOD COUNT 6.6 K/uL (4.8-10.8)
[2018-05-24 07:48] LABS: ALB/GLOB RATIO 1.2 (1.0-2.1); ALBUMIN 3.1 g/dL (3.5-5.0); CALCIUM 8.5 mg/dl (8.6-10.4)
[2018-05-24 07:53] LABS: INR 3.3; PROTHROMBIN TIME 36.7 SECONDS (9.7-12.2)
[2018-05-24] MEDS: Pantoprazole 40 mg EC Tab PO SCH (09:34)
--- NOTE | 2018-05-24 12:20 | CP.PCM.PN ---
Subjective - Date & Time of Evaluation Date of Evaluation: 05/24/18 Time of Evaluation: 12:20 - Subjective Subjective: 78 yo Female with pmh/o Hypertension, HLD, CAD, cardiac arrythmias, Aortic valve replacemengt , Arthritis, CKD was admitted with cc/o nausea, vomitings, diarrhea, b/l flank pain x 2weeks. s/p hypotension last night , s/p [employer] and transferred to icu. renal consult is requested for evaluation of ckd. s.cr 3.3. her base line s.cr 0.9 was wnl. pt also c/o dysuria x 1-2 weeks, no fever, no cough, no sob, no cp, no palpitation, no edema of legs. pt is feeling better, still c/o left flank pain Objective - Vital Signs/Intake and Output Vital Signs (last 24 hours): Temp Pulse Resp BP Pulse Ox 97.9 F 56 L 15 104/38 L 100 05/24/18 04:03 05/24/18 06:00 05/24/18 06:00 05/24/18 05:49 05/24/18 06:00 Intake and Output: 05/24/18 05/24/18 06:59 18:59 Intake Total 2350 210 Output Total 1150 200 Balance 1200 10 - Medications Medications: Current Medications Acetaminophen (Tylenol 325mg Tab) 650 mg PO Q6 PRN PRN Reason: Pain, Mild (1-3) Last Admin: 05/24/18 09:34 Dose: 650 mg Gabapentin (Neurontin) [address] [facility] Last Admin: 05/24/18 09:34 Dose: 100 mg Piperacillin Sod/Tazobactam Sod (Zosyn 2.25 Gm Iv Premix) 2.25 gm in 50 mls @ 100 mls/hr IVPB Q8H [facility] Stop: 05/27/18 14:01 Last Admin: 05/24/18 06:05 Dose: 100 mls/hr Sodium Chloride (Sodium Chloride 0.45%) 1,000 mls @ 70 mls/hr IV .[id number] [facility] Last Admin: 05/24/18 09:34 Dose: 70 mls/hr Lactulose (Enulose) 20 gm PO [facility] Last Admin: 05/23/18 22:30 Dose: Not Given Montelukast Sodium (Singulair) 10 mg PO [facility] Last Admin: 05/23/18 22:21 Dose: 10 mg Pantoprazole Sodium (Protonix Ec Tab) [address] [facility] Last Admin: 05/24/18 09:34 Dose: 40 mg Rosuvastatin Calcium (Crestor) 2.[address] [facility] Last Admin: 05/23/18 22:20 Dose: 2.5 mg - Labs Labs: 05/24/18 07:20 05/24/18 07:20 PT 36.7 SECONDS (9.7-12.2) H 05/24/18 07:20 INR 3.3 H* 05/24/18 07:20 - Constitutional Appears: Well, Non-toxic, No Acute Distress - Head Exam Head Exam: ATRAUMATIC, NORMAL INSPECTION - Eye Exam Eye Exam: EOMI, Normal appearance, PERRL Pupil Exam: NORMAL ACCOMODATION - ENT Exam ENT Exam: Mucous Membranes Moist - Neck Exam Neck Exam: Full ROM - Respiratory Exam Respiratory Exam: Clear to Ausculation Bilateral, NORMAL BREATHING PATTERN - Cardiovascular Exam Cardiovascular Exam: REGULAR RHYTHM, +S1, +S2 - GI/Abdominal Exam GI & Abdominal Exam: Soft, Normal Bowel Sounds Additional comments: left flank pain+, tenderness+ - Rectal Exam Rectal Exam: Deferred - Back Exam Additional comments: no edema Assessment and Plan - Assessment and Plan (Free Text) Assessment: 78 yo female with pmh/o htn, hld, cad, s/p Prosthetic Aortic valve, cad, cardiac arrythmias, arthritis, ckd was admitted with nausea, vomitings, diarrhea, b/l flank pain 1. Non oliguric Todd sec to ATN, FENA 1.9 2. r/o uti r/o pyeelo 3. dehydration 4. S/p AVR 5. s/p aortic valve replacement 6. s/p hypotension renal function is stable will c/w ivf 1/2 s at 60 ml/h c/w iv abx, zosyn 2.5 gm ivpb q 8 hrs daily bmp check cpk level n am check urine lytes, osm, cr, eosinophis
--- NOTE | 2018-05-24 13:26 | PN ---
DATE: 05/23/2018 SUBJECTIVE: The patient was seen on 05/23/2018. PHYSICAL EXAMINATION: VITAL SIGNS: She was not in any cardiopulmonary distress with blood pressure 108/36, temperature 98.2, respiratory rate 18 and pulse 63. HEENT: Pupils equal, reactive to light. Normal-appearing mucosa of the conjunctivae, oropharynx and nasal membrane mucosa. NECK: Supple. No JVD. No carotid bruit. No lymph node. No thyromegaly. CHEST AND LUNGS: Bilateral symmetrical expansion. Good air exchange. No rales, no rhonchi. CARDIOVASCULAR SYSTEM: PMI not localized. S1 and S2. No additional sounds. ABDOMEN: Normoactive bowel sounds. No tenderness. No organomegaly. No masses. EXTREMITIES: No cyanosis, no clubbing, no edema. CENTRAL NERVOUS SYSTEM: Alert, awake, oriented x2. No neurological deficit could be appreciated. ASSESSMENT: 1. Acute renal failure 2. Prosthetic aortic valve, on warfarin. 3. . 4. Urinary tract infection. PLAN: Continue current treatment and IV fluids Follow the Nephrology consult recommendations. We will hold Coumadin today as INR is 3.5 and check the INR tomorrow, the following day. Follow Cardiology and Nephrology recommendations. Carlos Alberto Rojo MD
[2018-05-24 16:10] LABS: SQUAMOUS EPITHIAL < 1 /hpf (0-5); URINE AMORPHOUS SEDIMENT MODERATE /ul (<OCC); URINE BACTERIA RARE (<OCC); URINE BILIRUBIN NEGATIVE (NEGATIVE); URINE BLOOD 1+ (NEGATIVE); URINE CLARITY Hazy (Clear); URINE COLOR Yellow (YELLOW); URINE GLUCOSE (UA) NORMAL (Normal); URINE LEUKOCYTE ESTERASE NEG Leu/uL (Negative); URINE PROTEIN 1+ mg/dL (NEGATIVE); URINE UROBILINOGEN NORMAL mg/dL (0.2-1.0)
[2018-05-24 16:31] LABS: CREATININE, RANDOM URINE 48.6 mg/dL
--- NOTE | 2018-05-24 16:37 | RAD ---
Date of service: 05/24/2018 HISTORY: sob COMPARISON: 05/21/2018 FINDINGS: LUNGS: Shallow lung volumes-similar No consolidation. Similar discoid atelectasis and/or scarring left lung base. PLEURA: No significant pleural effusion identified, small right pleural effusion probable. No pneumothorax apparent. CARDIOVASCULAR: There is presence of aortic atherosclerotic calcification on x-ray. Mild cardiomegaly. Mild pulmonary venous congestion-similar OSSEOUS STRUCTURES: Midline sternotomy. Most osteopenia, thoracic spondylosis and bilateral shoulder arthrosis. VISUALIZED UPPER ABDOMEN: Normal. OTHER FINDINGS: None. IMPRESSION: Shallow lung volumes-as before. Trace right pleural effusion possible. Cardiomegaly and mild pulmonary venous congestion-similar. Discoid atelectasis and/or scarring left lung base similar. No definitive interval pathology appreciated.
--- NOTE | 2018-05-24 17:08 | CARD ---
APPROVED REPORT Date of service: 05/23/2018 EKG Measurement Heart [id number] <Conclusion> Normal sinus rhythm T wave abnormality, consider inferior ischemia Abnormal ECG
--- NOTE | 2018-05-24 17:25 | CARD ---
APPROVED REPORT Date of service: 05/24/2018 EXAM: Two-dimensional and M-mode echocardiogram with Doppler and color Doppler. Other Information Quality : GoodRhythm : INDICATION Congestive Heart Failure Surgery/Intervention Status/Post Aortic Valve Replacement: Bioprosthetic 2D DIMENSIONS IVSd0.8 (0.7-1.1cm)LVDd4.9 (3.9-5.9cm) LVOT Diameter1.8 (1.8-2.4cm)PWd0.7 (0.7-1.1cm) LA Liyzsg97 (18-58mL)LVDs2.8 (2.5-4.0cm) FS (%) 43.1 %LVEF (%)74.1 (>50%) LVEF (Nam's)70.55 % M-Mode DIMENSIONS IVSd1.14 (0.7-1.1cm)LVDd6.36 (4.0-5.6cm) PWd1.11 (0.7-1.1cm)FS (%) 43 % LVDs3.64 (2.0-3.8cm)LVEF (%)73 (>50%) Aortic Valve AoV Peak Epihexjv957.4cm/sAoV VTI94.3cmAO Peak GR.86mmHg LVOT Peak Xraiaiox516.0cm/sLVOT VTI39.42cmAO Mean GR.49mmHg DAVID (VMAX)0.05pn2LFH (VTI)1.05cm2 Mitral Valve MV E Zrdmljzv463.2cm/sMV A Tamqxafp507.2cm/sE/A ratio1.0 TDI Lateral E' Peak V7.96cm/sMedial E' Peak V5.06cm/sE/Lateral E'17.5 E/Medial E'27.5 Tricuspid Valve TR Peak Jjqditwv956ti/sTR Peak Gr.75smPiGCJV60wkNk LEFT VENTRICLE The left ventricle is normal size. There is normal left ventricular wall thickness. The left ventricular function is normal. The left ventricular ejection fraction is within the normal range. 71% No regional wall motion abnormalities noted. Indeterminate. No left ventricle thrombus noted on this study. There is no ventricular septal defect visualized. There is no left ventricular aneurysm. There is no mass noted in the left ventricle. RIGHT VENTRICLE The right ventricle is normal size. There is normal right ventricular wall thickness. The right ventricular systolic function is normal. ATRIA The left atrial vilume index is mildly increased. The right atrium size is normal. The interatrial septum is intact with no evidence for an atrial septal defect. AORTIC VALVE Trileaflet, calcified with makedly reduced opening. No aortic regurgitation is present. There is severe valvular aortic stenosis. Peak/mean gradients are 89/49 mm Hg and estimated valve area is .8 cm2. There is no aortic valvular vegetation. MITRAL VALVE Mildly thickened leaflets with low normal opening. There is no evidence of mitral valve prolapse. There is no mitral valve stenosis. There is trace mitral valve regurgitation noted. TRICUSPID VALVE The tricuspid valve is normal in structure and function. There is mild tricuspid valve regurgitation noted. Estimated PA systolic pressure is 44 mm Hg. There is no tricuspid valve prolapse or vegetation. There is no tricuspid valve stenosis. PULMONIC VALVE The pulmonary valve is normal in structure and function. There is no pulmonic valvular regurgitation. There is no pulmonic valvular stenosis. GREAT VESSELS The aortic root is normal in size. The ascending aorta is normal in size. The pulmonary artery is normal. The IVC is normal in size and collapses <0% with inspiration. PERICARDIAL EFFUSION The pericardium appears normal. There is no pleural effusion. <Conclusion> Normal LV systolic function. There is severe valvular aortic stenosis. Mild pulmonary HTN.
--- NOTE | 2018-05-24 19:16 | PN ---
DATE: 05/24/2018 SUBJECTIVE: The patient is having adequate urinary output. She complains of headache and neck pain. PHYSICAL EXAMINATION: VITAL SIGNS: Blood pressure 104/58, heart rate 66, temperature 97.9, respirations 16. HEENT: Normocephalic. CHEST: Right basal coarse crepitations. HEART: S1, S2 regular. EXTREMITIES: 1+ pitting edema. LABORATORY DATA: Hemoglobin and hematocrit 10.1 and 30.2. White count and platelet count are within normal limits. Today's BUN and creatinine are 17 and 3.3 respectively. ASSESSMENT: 1. Acute tubular necrosis. 2. Improved hypotension. 3. Mild sinus bradycardia. 4. Rule out underlying sepsis. 5. History of prosthetic aortic valve replacement with residual aortic stenosis. RECOMMENDATIONS: Hold Coumadin today. The patient's INR is 3.3. Continue IV Zosyn at 2.25 g every 8 hours. Continue Crestor at 2.5 mg once a day and we will start Lasix 40 mg IV push. We will obtain a portable chest x-ray. Jacky Fay MD
[2018-05-24] MEDS: Rosuvastatin Calcium 2.5 mg Tab PO SCH (21:12)
--- NOTE | 2018-05-25 00:55 | PN ---
DATE: 05/24/2018 SUBJECTIVE: She is having headache as well as back pain and bilateral lower extremity pain, generalized pain and fatigue. PHYSICAL EXAMINATION VITAL SIGNS: Blood pressure 108/50, temperature 98.2, respiratory rate 14 and pulse 57. HEENT: Pupils equal and reactive to light. Normal-appearing mucosa of the conjunctivae, oropharynx and nasal membrane mucosa. NECK: Supple. No JVD. No carotid bruit. No lymph node. No thyromegaly. CHEST AND LUNGS: Bilateral symmetrical expansion. Good air exchange. No rales, no rhonchi. CARDIOVASCULAR SYSTEM: PMI not localized. S1, S2. No additional sounds. ABDOMEN: Normoactive bowel sounds. No tenderness. No organomegaly. No masses. EXTREMITIES: No cyanosis, no clubbing, no edema. CENTRAL NERVOUS SYSTEM: Alert, awake, oriented x2. No neurological deficit could be appreciated. ASSESSMENT: Acute renal failure, status post aortic valve replacement with prosthetic valve, hypertension, osteoarthritis. PLAN: Continue current IV fluid and IV antibiotics treating urinary tract infection. Discussed the patient's condition with second watch sergeant who agreed for the treatment. Carlos Alberto Rojo MD
[2018-05-25] MEDS: Piperacill/Tazo 2.25gm in Dex 2.25 GM/50 ML BAG IVPB SCH ×2 (06:07→13:42)
[2018-05-25 06:46] LABS: BASO % 0.6 % (0.0-2.0); EOS # 0.1 K/uL (0.0-0.7); LYMPH # 1.8 K/uL (1.0-4.3); LYMPH % 26.4 % (20.0-40.0); MEAN CELL VOLUME 87.7 fL (81.0-99.0); MEAN CORPUSCULAR HEMOGLOBIN 29.2 pg (27.0-31.0); MEAN CORPUSCULAR HGB CONC 33.3 g/dL (33.0-37.0); MEAN PLATELET VOLUME 10.2 fL (7.2-11.7); MONO # 0.5 K/uL (0.0-0.8); MONO % 7.8 % (0.0-10.0); NEUT # 4.4 K/uL (1.8-7.0); NEUT % 63.2 % (50.0-75.0); RBC 3.42 Mil/uL (3.80-5.20); RED CELL DISTRIBUTION WIDTH 14.4 % (11.5-14.5); WHITE BLOOD COUNT 6.9 K/uL (4.8-10.8)
[2018-05-25 06:58] LABS: ALB/GLOB RATIO 1.1 (1.0-2.1); ALT/SGPT 24 U/L (9-52); AST/SGOT 24 U/L (14-36); BLOOD UREA NITROGEN 75 mg/dL (7-17); CALCIUM 8.5 mg/dl (8.6-10.4); GFR NON-AFRICAN AMERICAN 12
[2018-05-25] MEDS: Pantoprazole 40 mg EC Tab PO SCH (09:50)
--- NOTE | 2018-05-25 11:17 | CP.PCM.PN ---
Subjective - Date & Time of Evaluation Date of Evaluation: 05/25/18 Time of Evaluation: 10:45 - Subjective Subjective: pt is not in acute distress, pt is still c/o left flank pain, s/p lasix x1 yesterday Objective - Vital Signs/Intake and Output Vital Signs (last 24 hours): Temp Pulse Resp BP Pulse Ox 97.4 F L 59 L 20 107/65 99 05/25/18 08:17 05/25/18 08:17 05/25/18 08:17 05/25/18 08:17 05/25/18 08:17 Intake and Output: 05/25/18 05/25/18 06:59 18:59 Intake Total 1145 Output Total 950 Balance 195 - Medications Medications: Current Medications Acetaminophen (Tylenol 325mg Tab) 650 mg PO Q6 PRN PRN Reason: Pain, Mild (1-3) Last Admin: 05/25/18 00:20 Dose: 650 mg Docusate Sodium (Colace) 100 mg PO TID [facility] Last Admin: 05/25/18 09:50 Dose: 100 mg Gabapentin (Neurontin) 100 mg PO TID [facility] Last Admin: 05/25/18 09:49 Dose: 100 mg Piperacillin Sod/Tazobactam Sod (Zosyn 2.25 Gm Iv Premix) 2.25 gm in 50 mls @ 100 mls/hr IVPB Q8H [facility] Stop: 05/27/18 14:01 Last Admin: 05/25/18 06:07 Dose: 100 mls/hr Sodium Chloride (Sodium Chloride 0.45%) 1,000 mls @ 70 mls/hr IV .[id number] [facility] Last Admin: 05/24/18 21:22 Dose: Not Given Lactulose (Enulose) 20 gm PO [facility] Last Admin: 05/24/18 21:12 Dose: 20 gm Montelukast Sodium (Singulair) 10 mg PO [facility] Last Admin: 05/24/18 21:12 Dose: 10 mg Pantoprazole Sodium (Protonix Ec Tab) 40 mg PO DAILY [facility] Last Admin: 05/25/18 09:50 Dose: 40 mg Rosuvastatin Calcium (Crestor) 2.5 mg PO HS [facility] Last Admin: 05/24/18 21:12 Dose: 2.5 mg - Labs Labs: 05/25/18 06:25 05/25/18 06:25 PT 36.7 SECONDS (9.7-12.2) H 05/24/18 07:20 INR 3.3 H* 05/24/18 07:20 - Constitutional Appears: Non-toxic, No Acute Distress - Head Exam Head Exam: ATRAUMATIC, NORMAL INSPECTION - Neck Exam Neck Exam: Full ROM - Respiratory Exam Respiratory Exam: Rales, NORMAL BREATHING PATTERN Additional comments: b/l bs+ , occ left basal crackles + - Cardiovascular Exam Cardiovascular Exam: REGULAR RHYTHM, +S1, +S2 - GI/Abdominal Exam GI & Abdominal Exam: Soft, Normal Bowel Sounds Additional comments: mild left flank tenderness+ - Rectal Exam Rectal Exam: Deferred - Extremities Exam Additional comments: no edema of legs - Neurological Exam Neurological Exam: Alert, Awake, CN II-XII Intact, Oriented x3 - Skin Skin Exam: Intact, Normal Color, Warm Assessment and Plan - Assessment and Plan (Free Text) Assessment: 78 yo female with pmh/o htn, hld, cad, s/p Prosthetic Aortic valve, cad, cardiac arrythmias, arthritis, ckd was admitted with nausea, vomitings, diarrhea, b/l flank pain 1. Non oliguric Todd sec to ATN, FENA 1.9 2. r/o uti r/o pyeelo 3. dehydration 4. S/p AVR 5. s/p aortic valve replacement 6. s/p hypotension renal function is stable, 3.6 today will c/w ivf 1/2 s at 60 ml/h c/w iv abx, zosyn 2.5 gm ivpb q 8 hrs daily bmp
[2018-05-25] MEDS: Sodium Chloride 0.45% 1,000 ML IV SCH ×2 (11:30→12:10)
[2018-05-25] MEDS: Rosuvastatin Calcium 2.5 mg Tab PO SCH (22:26)
[2018-05-26] MEDS: Sodium Chloride 0.45% 1,000 ML IV SCH ×3 (00:38→18:02)
--- NOTE | 2018-05-26 03:03 | PN ---
DATE: 05/25/2018 SUBJECTIVE: The patient is seen today, 05/25/2018. She is complaining of generalized weakness and headache. PHYSICAL EXAMINATION: VITAL SIGNS: Blood pressure 119/69, temperature 98.3, respiratory rate 20, and pulse 63. HEENT: Pupils equal and reactive to light. Normal appearing mucosa of the conjunctivae, oropharynx, and nasal membrane mucosa. NECK: Supple. No JVD. No carotid bruit. No lymph node. No thyromegaly. CHEST AND LUNGS: Bilateral symmetrical expansion. Good air exchange. No rales. No rhonchi. CARDIOVASCULAR SYSTEM: PMI not localized. S1, S2. No additional sounds. ABDOMEN: Normoactive bowel sounds. No tenderness. No guarding. No rigidity. No masses. EXTREMITIES: No cyanosis, no clubbing, no edema. CENTRAL NERVOUS SYSTEM: Alert, awake, and oriented x2. No neurological deficits could be appreciated. LABORATORY DATA: Blood work today showed BUN of 75, creatinine 3.6. ASSESSMENT: 1. Nonoliguric acute renal failure, likely secondary to acute tubular necrosis. 2. History of hypertension. 3. Prosthetic aortic valve. PLAN: Continue IV fluids. Follow Nephrology recommendation. Continue current medications and antibiotic is already started by histologic aide. Carlos Alberto Rojo MD
--- NOTE | 2018-05-26 06:45 | PN ---
DATE: 05/25/2018 SUBJECTIVE: The patient was transferred to telemetry. She is sitting and she ambulates with a walker. No shortness of breath at this time. The patient has good and clear urine output. PHYSICAL EXAMINATION VITAL SIGNS: Blood pressure 107/65, heart rate 59, temperature 97.4, respirations 20. HEENT: Normocephalic. CHEST: Minimal rhonchi. HEART: S1 and S2 regular. EXTREMITIES: 1+ pitting edema. LABORATORY DATA: Today's hemoglobin and hematocrit are 10 and 30. White count and platelet count are within normal limits. Today's BUN and creatinine are 75 and 3.6. Chest x-ray revealed lung volumes as before, trace right pleural effusion possible and mild pulmonary vascular congestion. ASSESSMENT: 1. Acute tubular necrosis. 2. Aortic stenosis. The most recent echo that was performed yesterday concluded severe valvular aortic stenosis with normal left ventricular systolic function. RECOMMENDATIONS: Continue Colace 100 mg t.i.d., Crestor 2.5 mg once a day, Neurontin 100 mg t.i.d., half normal saline at 70 mL an hour and Zosyn 2.25 g intravenously every 8 hours. So far, the blood culture is negative after 3 days. Jacky Fay MD
[2018-05-26 08:05] LABS: INR 2.8; PROTHROMBIN TIME 30.8 SECONDS (9.7-12.2)
[2018-05-26] MEDS: Pantoprazole 40 mg EC Tab PO SCH (10:08)
--- NOTE | 2018-05-26 18:34 | CP.PCM.PN ---
<Jersey Vela - Last Filed: 05/26/18 18:31> Subjective - Date & Time of Evaluation Date of Evaluation: 05/26/18 Time of Evaluation: 18:32 - Subjective Subjective: PGY-[address] Bocanegra, Covering for Dr. Rojo Patient seen and examined at bedside. No events overnight per nursing. Patient appears comfortable, is tolerating diet. Patient has continued to have flank pain, with questionable dysuria. Rechecking UA/urine cultures. Patient denies chest pain, shortness of breath, headaches, nausea, vomiting dizziness, paresthesias. Objective - Vital Signs/Intake and Output Vital Signs (last 24 hours): Temp Pulse Resp BP Pulse Ox 97.8 F 69 20 114/69 100 05/26/18 15:00 05/26/18 15:00 05/26/18 15:00 05/26/18 15:00 05/26/18 15:00 Intake and Output: 05/26/18 05/26/18 06:59 18:59 Intake Total 660 920 Output Total 800 700 Balance -140 220 - Medications Medications: Current Medications Acetaminophen (Tylenol 325mg Tab) 650 mg PO Q6 PRN PRN Reason: Pain, Mild (1-3) Last Admin: 05/26/18 01:12 Dose: 650 mg Docusate Sodium (Colace) 100 mg PO TID [facility] Last Admin: 05/26/18 18:00 Dose: Not Given Gabapentin (Neurontin) 100 mg PO TID [facility] Last Admin: 05/26/18 18:00 Dose: 100 mg Lactulose (Enulose) 20 gm PO [facility] Last Admin: 05/25/18 22:26 Dose: 20 gm Montelukast Sodium (Singulair) 10 mg PO [facility] Last Admin: 05/25/18 22:26 Dose: 10 mg Pantoprazole Sodium (Protonix Ec Tab) 40 mg PO DAILY [facility] Last Admin: 05/26/18 10:08 Dose: 40 mg Rosuvastatin Calcium (Crestor) 2.5 mg PO [facility] Last Admin: 05/25/18 22:26 Dose: 2.5 mg - Labs Labs: 05/25/18 06:25 05/26/18 07:37 PT 30.8 SECONDS (9.7-12.2) H D 05/26/18 07:37 INR 2.8 D 05/26/18 07:37 APTT 42 SECONDS (21-34) H 05/26/18 07:37 - Head Exam Head Exam: ATRAUMATIC, NORMAL INSPECTION - Eye Exam Eye Exam: EOMI, Normal appearance - ENT Exam ENT Exam: Mucous Membranes Moist - Respiratory Exam Respiratory Exam: Clear to Ausculation Bilateral, NORMAL BREATHING PATTERN. absent: Rhonchi, Wheezes - Cardiovascular Exam Cardiovascular Exam: +S1, +S2. absent: Murmur - GI/Abdominal Exam GI & Abdominal Exam: Soft, Normal Bowel Sounds. absent: Tenderness - Back Exam Additional comments: Left sided flank tenderness - Neurological Exam Neurological Exam: Alert, Awake, CN II-XII Intact, Oriented x3 - Psychiatric Exam Psychiatric exam: Normal Affect, Normal Mood - Skin Skin Exam: Dry, Intact, Normal Color, Warm Assessment and Plan - Assessment and Plan (Free Text) Assessment: UTI/rule out pyelonephritis -Rechecking UA and urine cultures, f/u JONATHAN -Though 2/2 ATN -Hold nephrotoxic agents -Continue current management Hypotension -Norvasc held, continue current medications Supratherapeutic INR -Coumadin held -INR now 2.8, down from 3.3 yesterday. -No medication changes at this time. Will plan to restart Coumadin. Hypercapnea -Continue BiPap at night <Anamaria Bocanegra V - Last Filed: 06/04/18 21:10> Objective - Vital Signs/Intake and Output Vital Signs (last 24 hours): Temp Pulse Resp BP Pulse Ox 97.9 F 83 20 136/75 96 06/04/18 15:00 06/04/18 15:00 06/04/18 15:00 06/04/18 15:00 06/04/18 15:00 Intake and Output: 06/04/18 06/05/18 18:59 06:59 Intake Total 700 Balance 700 - Medications Medications: Current Medications Acetaminophen (Tylenol 325mg Tab) 650 mg PO Q6 PRN PRN Reason: Pain, Mild (1-3) Last Admin: 06/04/18 15:41 Dose: 650 mg Albuterol/Ipratropium (Duoneb 3 Mg/0.5 Mg (3 Ml) Ud) 3 ml INH RQ6 PRN PRN Reason: Shortness of Breath Last Admin: 05/27/18 19:53 Dose: 3 ml Bacitracin (Bacitracin) 1 gm TOP BID [facility] Last Admin: 06/04/18 18:12 Dose: 1 applic Bethanechol Chloride (Urecholine) 10 mg PO TID [facility] Last Admin: 06/04/18 18:03 Dose: 10 mg Dicyclomine HCl (Bentyl) 10 mg PO BID [facility] Last Admin: 06/04/18 18:03 Dose: 10 mg Docusate Sodium (Colace) 100 mg PO TID [facility] Last Admin: 06/04/18 18:06 Dose: 100 mg Gabapentin (Neurontin) 100 mg PO BID [facility] Last Admin: 06/04/18 18:03 Dose: 100 mg Heparin Sodium/Sodium Chloride (Heparin 74237 Units/250ml 1/2 Normal Saline) 25,000 units in 250 mls @ 14.909 mls/hr IV .[id number] PRN; Protocol PRN Reason: PROTOCOL Last Admin: 06/04/18 01:39 Dose: 16 units/kg/hr, 12.555 mls/hr Lactulose (Enulose) 20 gm PO HS [facility] Last Admin: 06/03/18 21:24 Dose: Not Given Montelukast Sodium (Singulair) 10 mg PO HS [facility] Last Admin: 06/03/18 21:24 Dose: 10 mg Pantoprazole Sodium (Protonix Ec Tab) 40 mg PO DAILY [facility] Last Admin: 06/04/18 10:11 Dose: 40 mg Potassium Chloride (K-Dur 20 Meq Er Tab) 20 meq PO DAILY [facility] Last Admin: 06/04/18 12:13 Dose: 20 meq Rosuvastatin Calcium (Crestor) 2.5 mg PO HS [facility] Last Admin: 06/03/18 21:24 Dose: 2.5 mg Vitamin B Complex/Vit C/Folic Acid (Nephro-Ginna) 1 tab PO 0800 [facility] Last Admin: 06/04/18 08:37 Dose: 1 tab - Labs Labs: 06/03/18 06:46 06/04/18 13:31 PT 18.8 SECONDS (9.7-12.2) H 06/04/18 06:35 INR 1.7 06/04/18 06:35 APTT 78 SECONDS (21-34) H D 06/04/18 06:35 Attending/Attestation - Attestation I have personally seen and examined this patient.: Yes I have fully participated in the care of the patient.: Yes I have reviewed all pertinent clinical information, including history, physical exam and plan: Yes Notes (Text): This is late computer entry for 05/26/18. Hospitalist covering Dr. Rojo Patient seen, examined, and case discussed with day-time resident. Discussed with PMD, antibiotics were d/c by PMD the day before. patient was seen with family at bedside. patient with acute renal failure and associated uti symptoms. Patient recently completed uti therapy; ordered for repeat urine culture to see infection has cleared. Patient with history of prosthetic aortic valve on coumadin; therapuetic 2.8 Assessment/plan 1. Nonoliguric acute renal failure secondary to acute tubular necrosis Nephrology on case sharp in place Patient is on gentle Iv hydration per nephrology monitor BUN/Cr patient iv abc d/c by PMD f/u repeat UA; urine culture to see if UTI has cleared blood cultures negative 2. Hx of Hypertension on iv fluids off anti hypertensive 3. History of Prosthetic Aortic Valve Replacement patient previously on coumadin prior INR: 3.3 today's INR: 2.8 Monitor INR to determine when to restart coumadin echocardiogram (05/24/18): normal LV systolic function, severe valvular aortic stenosis, mild pulm htn cardiology on consult 4. Prophylactic measure patient is therapuetic INR 2.8 colace 100mg PO BID
--- NOTE | 2018-05-26 19:37 | PN ---
DATE: 05/26/2018 SUBJECTIVE: No chest pain. Shortness of breath is mild. The patient has had adequate and clear urinary output. PHYSICAL EXAMINATION: VITAL SIGNS: Blood pressure 105/64, heart rate 60, temperature 97.8, and respirations 20. HEENT: Normocephalic. CHEST: Minimal basal rales. HEART: S1 and S2 regular. EXTREMITIES: No edema. LABORATORY DATA: Today's BUN and creatinine are 77 and 4.2. INR today is 2.8. Hemoglobin and hematocrit 10 and 30 as of yesterday. ASSESSMENT: 1. Acute renal insufficiency. The patient's daughter has admitted to me for the first time that the patient was receiving IM Feldene that was brought to the patient from [place] and is given as injection by family members. This is despite my prior several inquiries if the patient was taking any oral medications for pain. 2. Severe aortic stenosis. 3. Chronic obstructive lung disease. RECOMMENDATIONS: Continue IV hydration 70 mL per hour of half normal saline. Continue Crestor 2.5 mg once a day and case will be discussed by the primary physician as well as the pit clerk. Jacky Fay MD
--- NOTE | 2018-05-26 19:58 | CP.PCM.PN ---
Subjective - Date & Time of Evaluation Date of Evaluation: 05/26/18 Time of Evaluation: 19:58 - Subjective Subjective: pt is oob to chair with family member, c/o mild sob pt was taking IM feldene ( NSAIDS) from back home, last dose taken is not clear? Objective - Vital Signs/Intake and Output Vital Signs (last 24 hours): Temp Pulse Resp BP Pulse Ox 97.8 F 69 20 114/69 100 05/26/18 15:00 05/26/18 15:00 05/26/18 15:00 05/26/18 15:00 05/26/18 15:00 Intake and Output: 05/26/18 05/27/18 18:59 06:59 Intake Total 920 Output Total 700 Balance 220 - Medications Medications: Current Medications Acetaminophen (Tylenol 325mg Tab) 650 mg PO Q6 PRN PRN Reason: Pain, Mild (1-3) Last Admin: 05/26/18 01:12 Dose: 650 mg Docusate Sodium (Colace) 100 mg PO TID [facility] Last Admin: 05/26/18 18:00 Dose: Not Given Gabapentin (Neurontin) 100 mg PO TID [facility] Last Admin: 05/26/18 18:00 Dose: 100 mg Lactulose (Enulose) 20 gm PO [facility] Last Admin: 05/25/18 22:26 Dose: 20 gm Montelukast Sodium (Singulair) 10 mg PO [facility] Last Admin: 05/25/18 22:26 Dose: 10 mg Pantoprazole Sodium (Protonix Ec Tab) 40 mg PO DAILY [facility] Last Admin: 05/26/18 10:08 Dose: 40 mg Rosuvastatin Calcium (Crestor) 2.5 mg PO [facility] Last Admin: 05/25/18 22:26 Dose: 2.5 mg - Labs Labs: 05/25/18 06:25 05/26/18 07:37 PT 30.8 SECONDS (9.7-12.2) H D 05/26/18 07:37 INR 2.8 D 05/26/18 07:37 APTT 42 SECONDS (21-34) H 05/26/18 07:37 - Constitutional Appears: Well, Non-toxic, No Acute Distress - Head Exam Head Exam: ATRAUMATIC, NORMAL INSPECTION - Eye Exam Eye Exam: EOMI, Normal appearance, PERRL Pupil Exam: NORMAL ACCOMODATION - ENT Exam ENT Exam: Mucous Membranes Moist - Respiratory Exam Respiratory Exam: NORMAL BREATHING PATTERN Additional comments: occ basal crackles + - Cardiovascular Exam Cardiovascular Exam: REGULAR RHYTHM, +S1, +S2 - Rectal Exam Rectal Exam: Deferred - Extremities Exam Additional comments: no edema of legs - Neurological Exam Neurological Exam: Alert, Awake, CN II-XII Intact, Normal Gait, Oriented x3 - Psychiatric Exam Psychiatric exam: Normal Mood - Skin Skin Exam: Normal Color Assessment and Plan - Assessment and Plan (Free Text) Assessment: 78 yo female with pmh/o htn, hld, cad, s/p Prosthetic Aortic valve, cad, cardiac arrythmias, arthritis, ckd was admitted with nausea, vomitings, diarrhea, b/l flank pain, h/o use of Im Feldene ( NSAIDS) 1. Non oliguric JONATHAN sec to ATN, FENA 1.9 2. r/o uti r/o pyeelo 3. dehydration 4. S/p AVR 5. s/p aortic valve replacement 6. s/p hypotension renal function is stable, 3.6 ---->4.2 today will c/w ivf 1/2 s at 60 ml/h d/c iv abx, zosyn 2.5 gm daily bmp if renal function does not improve , pt will need hemodialysis in next 1-2 days
[2018-05-26] MEDS: Rosuvastatin Calcium 2.5 mg Tab PO SCH (21:52)
[2018-05-27] MEDS: Pantoprazole 40 mg EC Tab PO SCH (09:23)
--- NOTE | 2018-05-27 11:25 | CP.PCM.PN ---
Subjective - Date & Time of Evaluation Date of Evaluation: 05/27/18 Time of Evaluation: 11:25 - Subjective Subjective: pt is oob to chair, no co, no sob, good uop vss Objective - Vital Signs/Intake and Output Vital Signs (last 24 hours): Temp Pulse Resp BP Pulse Ox 98 F 59 L 20 97/60 L 99 05/27/18 08:14 05/27/18 08:14 05/27/18 08:14 05/27/18 08:14 05/27/18 08:14 Intake and Output: 05/27/18 05/27/18 06:59 18:59 Intake Total 800 Output Total 1130 Balance -330 - Medications Medications: Current Medications Acetaminophen (Tylenol 325mg Tab) 650 mg PO Q6 PRN PRN Reason: Pain, Mild (1-3) Last Admin: 05/26/18 01:12 Dose: 650 mg Docusate Sodium (Colace) [address] [facility] Last Admin: 05/27/18 09:23 Dose: Not Given Gabapentin (Neurontin) [address] [facility] Last Admin: 05/27/18 09:23 Dose: 100 mg Lactulose (Enulose) 20 gm PO [facility] Last Admin: 05/26/18 21:53 Dose: Not Given Montelukast Sodium (Singulair) 10 mg PO [facility] Last Admin: 05/26/18 21:52 Dose: 10 mg Pantoprazole Sodium (Protonix Ec Tab) [address] [facility] Last Admin: 05/27/18 09:23 Dose: 40 mg Rosuvastatin Calcium (Crestor) 2.5 mg PO [facility] Last Admin: 05/26/18 21:52 Dose: 2.5 mg Sodium Bicarbonate (Sodium Bicarbonate Tab) [address] [facility] Last Admin: 05/27/18 06:03 Dose: 650 mg - Labs Labs: 05/25/18 06:25 05/26/18 07:37 PT 30.8 SECONDS (9.7-12.2) H D 05/26/18 07:37 INR 2.8 D 05/26/18 07:37 APTT 42 SECONDS (21-34) H 05/26/18 07:37 - Constitutional Appears: Well, Non-toxic, No Acute Distress - Head Exam Head Exam: ATRAUMATIC, NORMAL INSPECTION - Eye Exam Eye Exam: EOMI, Normal appearance, PERRL Pupil Exam: NORMAL ACCOMODATION - ENT Exam ENT Exam: Mucous Membranes Moist - Respiratory Exam Respiratory Exam: Clear to Ausculation Bilateral, NORMAL BREATHING PATTERN - Cardiovascular Exam Cardiovascular Exam: REGULAR RHYTHM, +S1, +S2 - GI/Abdominal Exam GI & Abdominal Exam: Soft, Normal Bowel Sounds - Rectal Exam Rectal Exam: Deferred - Neurological Exam Neurological Exam: Alert, Awake, CN II-XII Intact, Oriented x3 Assessment and Plan - Assessment and Plan (Free Text) Assessment: 78 yo female with pmh/o htn, hld, cad, s/p Prosthetic Aortic valve, cad, cardiac arrythmias, arthritis, ckd was admitted with nausea, vomitings, diarrhea, b/l flank pain, h/o use of Im Feldene ( NSAIDS) 1. Non oliguric JONATHAN sec to ATN, FENA 1.9 2. r/o uti r/o pyeelo 3. dehydration 4. S/p AVR 5. s/p aortic valve replacement 6. s/p hypotension renal function is stable, 3.6 ---->4.2 yesterday will c/w ivf 1/2 s at 60 ml/h d/c iv abx, zosyn 2.5 gm daily bmp
[2018-05-27] MEDS ORDERED: Sodium Chloride 0.45% 1,000 ML IV SCH (11:46)
[2018-05-27 12:18] LABS: SQUAMOUS EPITHIAL < 1 /hpf (0-5); URINE BACTERIA OCC (<OCC); URINE BILIRUBIN NEGATIVE (NEGATIVE); URINE BLOOD 1+ (NEGATIVE); URINE CLARITY Clear (Clear); URINE COLOR Straw (YELLOW); URINE GLUCOSE (UA) NORMAL (Normal); URINE LEUKOCYTE ESTERASE NEG Leu/uL (Negative); URINE PROTEIN NEGATIVE (NEGATIVE); URINE UROBILINOGEN NORMAL mg/dL (0.2-1.0)
[2018-05-27 12:25] LABS: HEMOGLOBIN 10.2 g/dL (11.0-16.0); MEAN CELL VOLUME 88.2 fL (81.0-99.0); MEAN CORPUSCULAR HEMOGLOBIN 29.8 pg (27.0-31.0); MEAN CORPUSCULAR HGB CONC 33.8 g/dL (33.0-37.0); MEAN PLATELET VOLUME 10.5 fL (7.2-11.7); RBC 3.41 Mil/uL (3.80-5.20); RED CELL DISTRIBUTION WIDTH 14.1 % (11.5-14.5); WHITE BLOOD COUNT 6.5 K/uL (4.8-10.8)
[2018-05-27 12:54] LABS: ALB/GLOB RATIO 1.3 (1.0-2.1); ALBUMIN 3.4 g/dL (3.5-5.0); CALCIUM 9.4 mg/dl (8.6-10.4)
[2018-05-27 15:06] LABS: INR 1.8; PROTHROMBIN TIME 19.6 SECONDS (9.7-12.2)
[2018-05-27] MEDS ORDERED: Albuterol-Ipratrop 3 mg / 0.5 (3 ml) UD INH PRN (15:07)
--- NOTE | 2018-05-27 15:22 | RAD ---
Date of service: 05/27/2018 HISTORY: JONATHAN, crackles on exam COMPARISON: No prior. FINDINGS: LUNGS: Poor inspiration with low lung volumes, crowded bronchovascular markings and mild bibasilar atelectasis. Mild persistent but improved mild venous congestive changes. PLEURA: No significant pleural effusion identified, no pneumothorax apparent. CARDIOVASCULAR: Mild moderate aortic atherosclerotic calcification present. Cardiomegaly.. Sternotomy wires again noted OSSEOUS STRUCTURES: No significant abnormalities. VISUALIZED UPPER ABDOMEN: Normal. OTHER FINDINGS: None. IMPRESSION: Poor inspiration with low lung volumes, crowded bronchovascular markings and mild bibasilar atelectasis. Mild persistent but improved mild venous congestive changes.
--- NOTE | 2018-05-27 16:11 | CP.PCM.PN ---
<Jersey Vela - Last Filed: 05/27/18 16:04> Subjective - Date & Time of Evaluation Date of Evaluation: 05/27/18 Time of Evaluation: 16:04 - Subjective Subjective: PGY-[address] Bocanegra, Covering for Dr. Rojo Patient seen and examined at bedside. No events overnight per nursing. Patient appears comfortable, is tolerating diet. Patient has continued to have flank pain, today only c/o right-sided pain. Patient also complaining of occasional dry cough. Denies fevers, fatigue, chills. Patient denies chest pain, shortness of breath, headaches, nausea, vomiting dizziness, paresthesias. Objective - Vital Signs/Intake and Output Vital Signs (last 24 hours): Temp Pulse Resp BP Pulse Ox 98 F 67 20 97/60 L 99 05/27/18 08:14 05/27/18 14:27 05/27/18 08:14 05/27/18 08:14 05/27/18 08:14 Intake and Output: 05/27/18 05/27/18 06:59 18:59 Intake Total 800 500 Output Total 1130 700 Balance -330 -200 - Medications Medications: Current Medications Acetaminophen (Tylenol 325mg Tab) 650 mg PO Q6 PRN PRN Reason: Pain, Mild (1-3) Last Admin: 05/26/18 01:12 Dose: 650 mg Albuterol/Ipratropium (Duoneb 3 Mg/0.5 Mg (3 Ml) Ud) 3 ml INH RQ6 PRN PRN Reason: Shortness of Breath Docusate Sodium (Colace) 100 mg PO TID [facility] Last Admin: 05/27/18 13:23 Dose: 100 mg Gabapentin (Neurontin) 100 mg PO TID [facility] Last Admin: 05/27/18 13:23 Dose: 100 mg Sodium Chloride (Sodium Chloride 0.45%) 1,000 mls @ 70 mls/hr IV .[id number] [facility] Last Admin: 05/27/18 11:46 Dose: 70 mls/hr Lactulose (Enulose) 20 gm PO [facility] Last Admin: 05/26/18 21:53 Dose: Not Given Montelukast Sodium (Singulair) 10 mg PO [facility] Last Admin: 05/26/18 21:52 Dose: 10 mg Pantoprazole Sodium (Protonix Ec Tab) 40 mg PO DAILY [facility] Last Admin: 05/27/18 09:23 Dose: 40 mg Rosuvastatin Calcium (Crestor) 2.5 mg PO HS [facility] Last Admin: 05/26/18 21:52 Dose: 2.5 mg Sodium Bicarbonate (Sodium Bicarbonate Tab) 650 mg PO Q8 [facility] Last Admin: 05/27/18 13:23 Dose: 650 mg - Labs Labs: 05/27/18 12:16 05/27/18 12:16 PT 19.6 SECONDS (9.7-12.2) H D 05/27/18 14:52 INR 1.8 D 05/27/18 14:52 APTT 42 SECONDS (21-34) H 05/26/18 07:37 - Constitutional Appears: No Acute Distress - Head Exam Head Exam: ATRAUMATIC, NORMOCEPHALIC - Eye Exam Eye Exam: EOMI, Normal appearance - ENT Exam ENT Exam: Mucous Membranes Dry - Neck Exam Neck Exam: absent: Lymphadenopathy, Tenderness - Respiratory Exam Respiratory Exam: Rales (Rales at bases). absent: Accessory Muscle Use, Respiratory Distress - Cardiovascular Exam Cardiovascular Exam: REGULAR RHYTHM, +S1, +S2. absent: Murmur - GI/Abdominal Exam GI & Abdominal Exam: Soft, Normal Bowel Sounds. absent: Tenderness - Extremities Exam Extremities Exam: Normal Inspection. absent: Pedal Edema - Back Exam Back Exam: absent: CVA tenderness (R), vertebral tenderness Additional comments: L side flank tenderness - Neurological Exam Neurological Exam: Alert, Awake, Oriented x3 - Psychiatric Exam Psychiatric exam: Normal Affect, Normal Mood - Skin Skin Exam: Dry, Intact, Normal Color, Warm Assessment and Plan - Assessment and Plan (Free Text) Assessment: UTI/rule out pyelonephritis -Repeat UA and urine cultures --UA negative for LE or nitrates --Urine Cx pending JONATHAN -Thought 2/2 ATN -Hold nephrotoxic agents -Continue current management -Per Dr. Antonio- Patient may require dialysis if GFR does not continue to improve. Cannot be certain if/when patient will start dialysis at this time. Plan to optimize INR prior to starting dialysis. Hypotension -Norvasc held, continue current medications Supratherapeutic INR -Coumadin held -INR now 1.8, down from 2.8 yesterday. -Plan to restart Coumadin. Hypercapnea -Continue BiPap at night -Duoneb INH Q8 prn -Chest X-Ray 05/27: Poor inspiration with low lung volumes, crowded bronchovascular markings and mild bibasilar atelectasis. Mild persistent but improved mild venous congestive changes. Dry Cough -WBC WNL, afebrile -Continue to monitor <Anamaria Bocanegra V - Last Filed: 06/04/18 21:17> Objective - Vital Signs/Intake and Output Vital Signs (last 24 hours): Temp Pulse Resp BP Pulse Ox 97.9 F 83 20 136/75 96 06/04/18 15:00 06/04/18 15:00 06/04/18 15:00 06/04/18 15:00 06/04/18 15:00 Intake and Output: 06/04/18 06/05/18 18:59 06:59 Intake Total 700 Balance 700 - Medications Medications: Current Medications Acetaminophen (Tylenol 325mg Tab) 650 mg PO Q6 PRN PRN Reason: Pain, Mild (1-3) Last Admin: 06/04/18 15:41 Dose: 650 mg Albuterol/Ipratropium (Duoneb 3 Mg/0.5 Mg (3 Ml) Ud) 3 ml INH RQ6 PRN PRN Reason: Shortness of Breath Last Admin: 05/27/18 19:53 Dose: 3 ml Bacitracin (Bacitracin) 1 gm TOP BID [facility] Last Admin: 06/04/18 18:12 Dose: 1 applic Bethanechol Chloride (Urecholine) 10 mg PO TID [facility] Last Admin: 06/04/18 18:03 Dose: 10 mg Dicyclomine HCl (Bentyl) 10 mg PO BID [facility] Last Admin: 06/04/18 18:03 Dose: 10 mg Docusate Sodium (Colace) 100 mg PO TID [facility] Last Admin: 06/04/18 18:06 Dose: 100 mg Gabapentin (Neurontin) 100 mg PO BID [facility] Last Admin: 06/04/18 18:03 Dose: 100 mg Heparin Sodium/Sodium Chloride (Heparin 60738 Units/250ml 1/2 Normal Saline) 25,000 units in 250 mls @ 14.909 mls/hr IV .[id number] PRN; Protocol PRN Reason: PROTOCOL Last Admin: 06/04/18 01:39 Dose: 16 units/kg/hr, 12.555 mls/hr Lactulose (Enulose) 20 gm PO [facility] Last Admin: 06/03/18 21:24 Dose: Not Given Montelukast Sodium (Singulair) 10 mg PO [facility] Last Admin: 06/03/18 21:24 Dose: 10 mg Pantoprazole Sodium (Protonix Ec Tab) 40 mg PO DAILY [facility] Last Admin: 06/04/18 10:11 Dose: 40 mg Potassium Chloride (K-Dur 20 Meq Er Tab) 20 meq PO DAILY [facility] Last Admin: 06/04/18 12:13 Dose: 20 meq Rosuvastatin Calcium (Crestor) 2.5 mg PO HS [facility] Last Admin: 06/03/18 21:24 Dose: 2.5 mg Vitamin B Complex/Vit C/Folic Acid (Nephro-Ginna) 1 tab PO 0800 [facility] Last Admin: 06/04/18 08:37 Dose: 1 tab - Labs Labs: 06/03/18 06:46 06/04/18 13:31 PT 18.8 SECONDS (9.7-12.2) H 06/04/18 06:35 INR 1.7 06/04/18 06:35 APTT 78 SECONDS (21-34) H D 06/04/18 06:35 Attending/Attestation - Attestation I have personally seen and examined this patient.: Yes I have fully participated in the care of the patient.: Yes I have reviewed all pertinent clinical information, including history, physical exam and plan: Yes Notes (Text): This is late computer entry for 05/27/18. Hospitalist covering Dr. Rojo patient seen, examined and case discussed with day-time resident. patient seen this afternoon with the resident. Patient noted on exam having some mild crackles. Recommended to order portable xray to view lungs. Patient's INR not therapeutic we have restarted Coumadin tonight. Nephrology noted that patient may need dialysis in 1-2 days. patient's pmd to resume care tomorrow; endorsed case to PMD. Assessment/plan 1. Nonoliguric acute renal failure secondary to acute tubular necrosis Nephrology on case sharp in place Patient is on gentle Iv hydration per nephrology monitor BUN/Cr patient iv abc d/c by PMD f/u repeat UA; urine culture to see if UTI has cleared blood cultures negative 2. Hx of Hypertension on iv fluids off anti hypertensive 3. History of Prosthetic Aortic Valve Replacement Monitor INR to main echocardiogram (05/24/18): normal LV systolic function, severe valvular aortic stenosis, mild pulm htn cardiology on consult 4. Prophylactic measure monitor INR; restart Coumadin to maintain therapeutic colace 100mg PO BID
[2018-05-27] MEDS: Rosuvastatin Calcium 2.5 mg Tab PO SCH (22:11)
--- NOTE | 2018-05-27 22:33 | PCM.RRT ---
<Sherri De Leon - Last Filed: 05/27/18 22:38> POULTRY FARM MANAGER Nurses Assessment - Situation Date: 05/27/18 Time POULTRY FARM MANAGER was called: 21:00 POULTRY FARM MANAGER Responder Arrival Time:: 21:00 POULTRY FARM MANAGER Location:: Med/Surg Room Number: 655P POULTRY FARM MANAGER Reason for Call: Respiratory Distress, Looks Sicker POULTRY FARM MANAGER Called By: RN - IV IV Inserted during POULTRY FARM MANAGER?: No - Respiratory POULTRY FARM MANAGER Delivery Method: Nasal Cannula @L/min Oxygen Flow Rate: 3 Received Nebulizer Treatments: No Was the Patient Ventilated with Bag/Mask 100% O2?: No Secretions Suctioned?: No Was the Patient Intubated?: No Was the Patient Placed on a Ventilator?: No - Ventilator Settings FIO2 (% Oxygen): 40 - Medication Medications Administered During POULTRY FARM MANAGER: Lasix IVP 20mg - Diagnostic Test Ordered EKG: No Chest X-Ray: No CT Scan: No - Stat Labs Ordered POULTRY FARM MANAGER Stat Labs Ordered: TROPONIN CPR started during POULTRY FARM MANAGER?: No - Vital Signs Vital Signs: Rapid Response Vital Sign Blood Pressure 134/61 Pulse Rate 80 Respiratory Rate 20 Temperature 97.7 F Oxygen Saturation 99 - Fernanda Coma Scale Coma Scale Eye Opening: Spontaneous Coma Scale Motor: Obeys Commands Movement Coma Scale Verbal: Oriented Coma Scale Total: 15 - Time POULTRY FARM MANAGER Ended Time POULTRY FARM MANAGER Ended: 21:10 - Vital Signs at end of POULTRY FARM MANAGER Vital Signs at end of POULTRY FARM MANAGER: Rapid Response End Vital Sign Blood Pressure 136/68 Pulse Rate 83 Respiratory Rate 20 Temperature 99.2 F O2 Sat by Pulse Oximetry 99 - Recommendations Notifications: Family or Designated Caregiver - Respiratory Oxygen Delivery Method: Nasal Cannula @L/min Oxygen Flow Rate: 3 - Constitutional Appears: Non-toxic, No Acute Distress, Agitated - Head Head Exam: ATRAUMATIC, NORMOCEPHALIC - Eyes Eye Exam: EOMI, PERRL - Respiratory Exam Respiratory Exam: Rales, Respiratory Distress. absent: Accessory Muscle Use, Rhonchi, Wheezes, NORMAL BREATHING PATTERN Additional comments: mid to lower lung crackles - Cardiovascular Exam Cardiovascular Exam: REGULAR RHYTHM, +S1, +S2 - GI/Abdominal Exam GI & Abdominal Exam: Distended, Soft, Normal Bowel Sounds. absent: Tenderness Additional comments: constipated - Neurological Exam Neurological Exam: Alert, Awake, Oriented x3 - Extremities Exam Extremities Exam: Normal Capillary Refill, Normal Inspection Additional comments: 1+ pitting edema in bilateral lower extremities Plan - Assessment of Findings&Treatment Plan Patient was found by nurse, LAWANDA Ramos sitting in chair when notified by family. Transferred patient to bed and started on 3L O2 via NC. POULTRY FARM MANAGER was called at 2100 for SOB. Vitals: T 97.7 HR 80 BP 134/61 RR 22 O2 99% NC 3L IVF stopped. Patient sat up and kept at 45-60 degrees. Given Lasix 20mg IVP. RR slowed to 18; 98% on NC 3L Monitor vitals [id number] for next [address] Rojo contact attempted - unable to reach. Recommend lowering rate for fluids once lungs clear. POULTRY FARM MANAGER ended 2107. <Gutierrez Henry - Last Filed: 05/28/18 02:19> POULTRY FARM MANAGER Nurses Assessment - Vital Signs Vital Signs: Rapid Response Vital Sign Blood Pressure 134/61 Pulse Rate 80 Respiratory Rate 20 Temperature 97.7 F Oxygen Saturation 99 - Vital Signs at end of POULTRY FARM MANAGER Vital Signs at end of POULTRY FARM MANAGER: Rapid Response End Vital Sign Blood Pressure 136/68 Pulse Rate 83 Respiratory Rate 20 Temperature 99.2 F O2 Sat by Pulse Oximetry 99 Attending/Attestation - Attestation I have personally seen and examined this patient.: Yes I have fully participated in the care of the patient.: Yes I have reviewed all pertinent clinical information, including history, physical exam and plan: Yes Notes (Text): 05/28/18 02:17 This patient was seen and examined with resident Dr. De Leon at the time of the POULTRY FARM MANAGER. Labs and most recent chest x ray at the time was reviewed and exam indicated that the patient was fluid overloaded in the lungs and the likely cause of her difficulty breathing and drop in SPO2. Therefore Lasix 20 mg IV x dose was ordered. Patient had Pérez in place. Spoke with Nurse caring for patient to monitor vitals and urine output every 30 minutes for the next 2 to 3 hours and if any further issues to contact me. Son at bedside and plan of care was also explained to him. Gutierrez Henry D.O.
--- NOTE | 2018-05-28 00:21 | PN ---
DATE: 05/27/2018 SUBJECTIVE: The patient is sleeping comfortably, and her daughter is at the bedside. PHYSICAL EXAMINATION: VITAL SIGNS: Blood pressure 110/68, heart rate 64, temperature 98.5, and respirations 20. LABORATORY DATA: Today's labs: Hemoglobin and hematocrit of 10.1 and 30. White count and platelet count are within normal limits. Today's BUN and creatinine are 71 and 4 respectively. Chest x-ray done today revealed nearly clear lungs [place]lett. ASSESSMENT: 1. Acute renal insufficiency. 2. Severe aortic stenosis. 3. Chronic obstructive lung disease. 4. Mild anemia. RECOMMENDATIONS: Case was discussed at length with Nephrology, Dr. Antonio. The patient is being maintained on Crestor 2.5 mg once a day, Tylenol 2 tablets p.o. every 6 hours p.r.n. for pain, gabapentin 100 mg b.i.d., Protonix 40 mg p.o. once a day. Today's INR is 1.8, and we will administer Coumadin 5 mg orally today. Jacky Fay MD
[2018-05-28 06:40] LABS: HEMOGLOBIN 9.6 g/dL (11.0-16.0); MEAN CELL VOLUME 88.3 fL (81.0-99.0); MEAN CORPUSCULAR HEMOGLOBIN 29.7 pg (27.0-31.0); MEAN CORPUSCULAR HGB CONC 33.6 g/dL (33.0-37.0); MEAN PLATELET VOLUME 9.9 fL (7.2-11.7); RBC 3.23 Mil/uL (3.80-5.20); RED CELL DISTRIBUTION WIDTH 14.6 % (11.5-14.5); WHITE BLOOD COUNT 6.9 K/uL (4.8-10.8)
[2018-05-28 06:47] LABS: INR 1.5; PROTHROMBIN TIME 16.8 SECONDS (9.7-12.2)
[2018-05-28 06:53] LABS: ALB/GLOB RATIO 1.2 (1.0-2.1); ALBUMIN 3.4 g/dL (3.5-5.0); CALCIUM 9.7 mg/dl (8.6-10.4)
[2018-05-28] MEDS: Pantoprazole 40 mg EC Tab PO SCH (10:37)
[2018-05-28] MEDS ORDERED: Heparin25000 units/250ml 1/2NS 25,000 UNITS/250 ML BAG IV PRN (10:39)
--- NOTE | 2018-05-28 14:15 | CP.PCM.PN ---
Subjective - Date & Time of Evaluation Date of Evaluation: 05/28/18 Time of Evaluation: 14:15 - Subjective Subjective: pt is c/o mild sob and abdominal distention and slight discomfort, no cp, no palpitation, no nausea, no vomitings Objective - Vital Signs/Intake and Output Vital Signs (last 24 hours): Temp Pulse Resp BP Pulse Ox 98.0 F 69 20 112/66 98 05/28/18 04:14 05/28/18 04:14 05/28/18 04:14 05/28/18 04:14 05/28/18 04:14 Intake and Output: 05/28/18 05/28/18 06:59 18:59 Output Total 1450 Balance -1450 - Medications Medications: Current Medications Acetaminophen (Tylenol 325mg Tab) 650 mg PO Q6 PRN PRN Reason: Pain, Mild (1-3) Last Admin: 05/26/18 01:12 Dose: 650 mg Albuterol/Ipratropium (Duoneb 3 Mg/0.5 Mg (3 Ml) Ud) 3 ml INH RQ6 PRN PRN Reason: Shortness of Breath Last Admin: 05/27/18 19:53 Dose: 3 ml Docusate Sodium (Colace) 100 mg PO TID [facility] Last Admin: 05/28/18 13:59 Dose: 100 mg Gabapentin (Neurontin) 100 mg PO BID [facility] Last Admin: 05/28/18 10:37 Dose: 100 mg Heparin Sodium/Sodium Chloride (Heparin 68368 Units/250ml 1/2 Normal Saline) 25,000 units in 250 mls @ 8.004 mls/hr IV .Q24H PRN; Protocol PRN Reason: PROTOCOL Last Admin: 05/28/18 11:40 Dose: 10.2 units/kg/hr, 8.004 mls/hr Lactulose (Enulose) 20 gm PO [facility] Last Admin: 05/27/18 22:16 Dose: Not Given Montelukast Sodium (Singulair) 10 mg PO [facility] Last Admin: 05/27/18 22:11 Dose: 10 mg Pantoprazole Sodium (Protonix Ec Tab) 40 mg PO DAILY [facility] Last Admin: 05/28/18 10:37 Dose: 40 mg Rosuvastatin Calcium (Crestor) 2.5 mg PO [facility] Last Admin: 05/27/18 22:11 Dose: 2.5 mg Sodium Bicarbonate (Sodium Bicarbonate Tab) 650 mg PO Q8 [facility] Last Admin: 05/28/18 14:01 Dose: 650 mg - Labs Labs: 05/28/18 06:28 05/28/18 06:28 PT 16.8 SECONDS (9.7-12.2) H 05/28/18 06:28 INR 1.5 05/28/18 06:28 APTT 42 SECONDS (21-34) H 05/26/18 07:37 - Constitutional Appears: Well, Non-toxic, No Acute Distress - Head Exam Head Exam: ATRAUMATIC, NORMAL INSPECTION, NORMOCEPHALIC - Eye Exam Eye Exam: EOMI, Normal appearance, PERRL Pupil Exam: NORMAL ACCOMODATION - ENT Exam ENT Exam: Mucous Membranes Moist - Neck Exam Neck Exam: Full ROM, Normal Inspection - Cardiovascular Exam Cardiovascular Exam: REGULAR RHYTHM, +S1, +S2 - GI/Abdominal Exam GI & Abdominal Exam: Distended, Soft, Normal Bowel Sounds Additional comments: mild ,diffuse abdominal tenderness+, no guarding, no rigidity - Rectal Exam Rectal Exam: Deferred - Neurological Exam Neurological Exam: Alert, Awake, CN II-XII Intact, Oriented x3 - Psychiatric Exam Psychiatric exam: Normal Affect, Normal Mood - Skin Skin Exam: Normal Color Assessment and Plan - Assessment and Plan (Free Text) Assessment: 78 yo female with pmh/o htn, hld, cad, s/p Prosthetic Aortic valve, cad, cardiac arrythmias, arthritis, ckd was admitted with nausea, vomitings, diarrhea, b/l flank pain, h/o use of IM Feldene ( NSAIDS) 1. Non oliguric JONATHAN sec to ATN, FENA 1.9 2. HTN 3. s/P Aortic valve replacement 4. Mild chf 5. Abdominal pain renal function is stable, 3.6 ---->4.2 ---->4.0----->4.1 today add lasix 40 mg ivp qd try to obtain ct scan abd/pelvis with po contrast f/u bmp daily
--- NOTE | 2018-05-28 14:44 | RAD ---
Date of service: 05/28/2018 HISTORY: sob COMPARISON: No prior. FINDINGS: LUNGS: Mild pulmonary venous congestion with bibasilar atelectasis and/or developing infiltrates. Suspect small bilateral effusions PLEURA: As above. No pneumothorax apparent. CARDIOVASCULAR: Mild aortic atherosclerotic calcification present. Normal cardiac size. No pulmonary vascular congestion. OSSEOUS STRUCTURES: No significant abnormalities. VISUALIZED UPPER ABDOMEN: Normal. OTHER FINDINGS: None. IMPRESSION: Mild pulmonary venous congestion with bibasilar atelectasis and/or developing infiltrates. Suspect small bilateral effusions
[2018-05-28] MEDS ORDERED: Iohexol 240 (50 ml) PO ONE (16:30)
--- NOTE | 2018-05-28 17:13 | PN ---
DATE: 05/28/2018 SUBJECTIVE: The patient is seen today on May 28, 2018. She had an BRIM SETTER last night for shortness of breath and fluid was stopped as well as Lasix was given and the patient's shortness of breath is better. PHYSICAL EXAMINATION: VITAL SIGNS: Blood pressure 112/66, temperature 98, respiratory rate 20 and pulse 69. HEENT: Pupils equal, reactive to light. Pale mucosa of the conjunctivae. NECK: Supple. No JVD. No carotid bruit. No lymph node. No thyromegaly. CHEST AND LUNGS: Bilateral symmetrical expansion. Good air exchange. Decreased basilar rales bilaterally. CARDIOVASCULAR: PMI not localized. S1, S2. No additional sounds. ABDOMEN: Normoactive bowel sounds. No tenderness. No organomegaly. No masses. EXTREMITIES: No cyanosis, no clubbing, no edema. CHRISTMAS TREE GRADER: Alert, awake, oriented x2. Moves all extremities equally. LABORATORY DATA: Blood work today showed hemoglobin 9.6, hematocrit 28.5, INR 1.5, BUN 74, creatinine 4.1 and CO2 of 22. ASSESSMENT: 1. Acute renal failure. Etiology could be acute tubular necrosis versus interstitial nephritis secondary to home use NSAIDs. 2. Hypertension. 3. Prosthetic aortic valve. PLAN: Since kidney function was not improving over a week with IV fluid and the patient start to have volume overload that required stopping the fluid and giving Lasix, we will discuss with Nephrology regarding starting hemodialysis. We will not give the patient Warfarin today and we will start heparin in anticipation of possible placement of a dialysis access catheter. Discussed with the patient's family at the bedside. Carlos Alberto Rojo MD
--- NOTE | 2018-05-28 20:02 | PN ---
DATE: 05/28/2018 SUBJECTIVE: Rapid response was called earlier for abdominal pain and mild shortness of breath. The patient's chest x-ray revealed mild pulmonary congestion and EKG revealed the same picture of sinus rhythm with inferior T-wave inversion. At this time, the patient denies any chest pain. She is experiencing left flank pain. PHYSICAL EXAMINATION VITAL SIGNS: Blood pressure 112/66, heart 69, temperature 98, respirations 20. HEENT: Normocephalic. CHEST: Minimal rhonchi. HEART: S1 and S2 regular. ABDOMEN: Mild paraumbilical tenderness. No guarding or rigidity. EXTREMITIES: 1+ pitting edema. LABORATORY DATA: Today's BUN and creatinine are 74 and 4.1 respectively. Today's hemoglobin and hematocrit are 9.6 and 28.5. White count and platelet count are within normal limits. ASSESSMENT: 1. Acute renal insufficiency. 2. Severe aortic stenosis. 3. Mild heart failure, most likely diastolic. 4. Mild anemia. 5. Abdominal pain. RECOMMENDATIONS: The patient was switched to IV heparin in a therapeutic regimen and Coumadin is on hold for now. Continue Crestor 2.5 mg once a day, Singulair 10 mg at bedtime, Protonix 40 mg p.o. once a day. The patient will undergo abdomen and pelvis CT scan with p.o. contrast only. Jacky Fay MD
[2018-05-28] MEDS: Heparin25000 units/250ml 1/2NS 25,000 UNITS/250 ML BAG IV PRN (22:06)
[2018-05-28] MEDS: Rosuvastatin Calcium 2.5 mg Tab PO SCH (22:08)
[2018-05-29 03:59] LABS: BASO % 0.7 % (0.0-2.0); EOS # 0.1 K/uL (0.0-0.7); EOS % 2.1 % (0.0-4.0); LYMPH # 1.6 K/uL (1.0-4.3); LYMPH % 27.4 % (20.0-40.0); MEAN CORPUSCULAR HEMOGLOBIN 29.9 pg (27.0-31.0); MEAN PLATELET VOLUME 9.6 fL (7.2-11.7); MONO # 0.5 K/uL (0.0-0.8); MONO % 8.3 % (0.0-10.0); NEUT # 3.7 K/uL (1.8-7.0); NEUT % 61.5 % (50.0-75.0); RBC 3.02 Mil/uL (3.80-5.20); RED CELL DISTRIBUTION WIDTH 14.3 % (11.5-14.5)
[2018-05-29 04:09] LABS: INR 1.4; PROTHROMBIN TIME 15.4 SECONDS (9.7-12.2)
[2018-05-29 04:22] LABS: ALB/GLOB RATIO 1.2 (1.0-2.1); ALBUMIN 3.2 g/dL (3.5-5.0); CALCIUM 10.1 mg/dl (8.6-10.4)
[2018-05-29] MEDS: Pantoprazole 40 mg EC Tab PO SCH (09:28)
[2018-05-29] MEDS: Heparin25000 units/250ml 1/2NS 25,000 UNITS/250 ML BAG IV PRN ×2 (09:30→21:50)
[2018-05-29 11:56] LABS: INR 1.4; PROTHROMBIN TIME 15.1 SECONDS (9.7-12.2)
[2018-05-29] MEDS ORDERED: Heparin25000 units/250ml 1/2NS 25,000 UNITS/250 ML BAG IV PRN (12:45)
--- NOTE | 2018-05-29 13:32 | CP.PCM.PN ---
Subjective - Date & Time of Evaluation Date of Evaluation: 05/29/18 Time of Evaluation: 13:32 - Subjective Subjective: pt is feeling better, oob to chair, on room air Objective - Vital Signs/Intake and Output Vital Signs (last 24 hours): Temp Pulse Resp BP Pulse Ox 98.4 F 61 18 121/60 100 05/29/18 07:00 05/29/18 07:50 05/29/18 07:00 05/29/18 09:30 05/29/18 07:00 Intake and Output: 05/29/18 05/29/18 06:59 18:59 Intake Total 1206.3 108.7 Output Total 1000 Balance 206.3 108.7 - Medications Medications: Current Medications Acetaminophen (Tylenol 325mg Tab) 650 mg PO Q6 PRN PRN Reason: Pain, Mild (1-3) Last Admin: 05/28/18 20:14 Dose: 650 mg Albuterol/Ipratropium (Duoneb 3 Mg/0.5 Mg (3 Ml) Ud) 3 ml INH RQ6 PRN PRN Reason: Shortness of Breath Last Admin: 05/27/18 19:53 Dose: 3 ml Docusate Sodium (Colace) 100 mg PO TID [facility] Last Admin: 05/29/18 13:07 Dose: 100 mg Furosemide (Lasix) 40 mg IVP DAILY [facility] Last Admin: 05/29/18 09:30 Dose: 40 mg Gabapentin (Neurontin) 100 mg PO BID [facility] Last Admin: 05/29/18 09:29 Dose: 100 mg Heparin Sodium/Sodium Chloride (Heparin 81821 Units/250ml 1/2 Normal Saline) 25,000 units in 250 mls @ 14.125 mls/hr IV .[id number] PRN; Protocol PRN Reason: PROTOCOL Lactulose (Enulose) 20 gm PO HS [facility] Last Admin: 05/28/18 22:09 Dose: Not Given Montelukast Sodium (Singulair) 10 mg PO HS [facility] Last Admin: 05/28/18 22:08 Dose: 10 mg Pantoprazole Sodium (Protonix Ec Tab) 40 mg PO DAILY [facility] Last Admin: 05/29/18 09:28 Dose: 40 mg Rosuvastatin Calcium (Crestor) 2.5 mg PO HS [facility] Last Admin: 05/28/18 22:08 Dose: 2.5 mg Sodium Bicarbonate (Sodium Bicarbonate Tab) 650 mg PO Q8 [facility] Last Admin: 05/29/18 13:08 Dose: 650 mg - Labs Labs: 05/29/18 03:56 05/29/18 03:56 PT 15.1 SECONDS (9.7-12.2) H 05/29/18 10:46 INR 1.4 05/29/18 10:46 APTT 36 SECONDS (21-34) H D 05/29/18 10:46 - Constitutional Appears: Well, Non-toxic, No Acute Distress - Head Exam Head Exam: ATRAUMATIC, NORMAL INSPECTION - Eye Exam Eye Exam: EOMI, Normal appearance, PERRL Pupil Exam: NORMAL ACCOMODATION - ENT Exam ENT Exam: Mucous Membranes Moist - Neck Exam Neck Exam: Full ROM - Respiratory Exam Respiratory Exam: Clear to Ausculation Bilateral, NORMAL BREATHING PATTERN - Cardiovascular Exam Cardiovascular Exam: REGULAR RHYTHM, +S1, +S2 - GI/Abdominal Exam GI & Abdominal Exam: Soft, Normal Bowel Sounds - Rectal Exam Rectal Exam: Deferred - Neurological Exam Neurological Exam: Alert, Awake, CN II-XII Intact, Oriented x3 - Skin Skin Exam: Normal Color, Warm Assessment and Plan - Assessment and Plan (Free Text) Assessment: 78 yo female with pmh/o htn, hld, cad, s/p Prosthetic Aortic valve, cad, cardiac arrythmias, arthritis, ckd was admitted with nausea, vomitings, diarrhea, b/l flank pain, h/o use of IM Feldene ( NSAIDS) 1. Non oliguric JONATHAN sec to ATN, FENA 1.9 2. HTN 3. s/P Aortic valve replacement 4. Mild chf 5. Abdominal pain renal function is stable, 3.6 ---->4.2 ---->4.0----->4.1----->3.5 today add lasix 40 mg ivp qd try to obtain ct scan abd/pelvis with po contrast report f/u bmp daily, no need for hd at this time
--- NOTE | 2018-05-29 13:33 | CP.PCM.PN ---
Subjective - Date & Time of Evaluation Date of Evaluation: 05/29/18 Time of Evaluation: 13:33 Objective - Vital Signs/Intake and Output Vital Signs (last 24 hours): Temp Pulse Resp BP Pulse Ox 98.4 F 61 18 121/60 100 05/29/18 07:00 05/29/18 07:50 05/29/18 07:00 05/29/18 09:30 05/29/18 07:00 Intake and Output: 05/29/18 05/29/18 06:59 18:59 Intake Total 1206.3 108.7 Output Total 1000 Balance 206.3 108.7 - Medications Medications: Current Medications Acetaminophen (Tylenol 325mg Tab) 650 mg PO Q6 PRN PRN Reason: Pain, Mild (1-3) Last Admin: 05/28/18 20:14 Dose: 650 mg Albuterol/Ipratropium (Duoneb 3 Mg/0.5 Mg (3 Ml) Ud) 3 ml INH RQ6 PRN PRN Reason: Shortness of Breath Last Admin: 05/27/18 19:53 Dose: 3 ml Docusate Sodium (Colace) 100 mg PO TID [facility] Last Admin: 05/29/18 13:07 Dose: 100 mg Furosemide (Lasix) 40 mg IVP DAILY [facility] Last Admin: 05/29/18 09:30 Dose: 40 mg Gabapentin (Neurontin) 100 mg PO BID [facility] Last Admin: 05/29/18 09:29 Dose: 100 mg Heparin Sodium/Sodium Chloride (Heparin 64560 Units/250ml 1/2 Normal Saline) 25,000 units in 250 mls @ 14.125 mls/hr IV .[id number] PRN; Protocol PRN Reason: PROTOCOL Lactulose (Enulose) 20 gm PO HS [facility] Last Admin: 05/28/18 22:09 Dose: Not Given Montelukast Sodium (Singulair) 10 mg PO HS [facility] Last Admin: 05/28/18 22:08 Dose: 10 mg Pantoprazole Sodium (Protonix Ec Tab) 40 mg PO DAILY [facility] Last Admin: 05/29/18 09:28 Dose: 40 mg Rosuvastatin Calcium (Crestor) 2.5 mg PO HS [facility] Last Admin: 05/28/18 22:08 Dose: 2.5 mg Sodium Bicarbonate (Sodium Bicarbonate Tab) 650 mg PO Q8 [facility] Last Admin: 05/29/18 13:08 Dose: 650 mg - Labs Labs: 05/29/18 03:56 05/29/18 03:56 PT 15.1 SECONDS (9.7-12.2) H 05/29/18 10:46 INR 1.4 05/29/18 10:46 APTT 36 SECONDS (21-34) H D 05/29/18 10:46
--- NOTE | 2018-05-29 17:43 | CT ---
Date of service: 05/28/2018 PROCEDURE: CT Abdomen and Pelvis with Oral contrast. HISTORY: Diffuse abdominal pain COMPARISON: Comparison made with CT scan abdomen pelvis 05/21/2018 TECHNIQUE: Contiguous axial images of the abdomen and pelvis following oral contrast administration. IV contrast not injected per request. Study is therefore somewhat limited as a result of the lack of circulating intravenous contrast material... Coronal and Sagittal reformats generated. Radiation dose: Total exam DLP = 934.81 mGy-cm. This CT exam was performed using one or more of the following dose reduction techniques: Automated exposure control, adjustment of the mA and/or kV according to patient size, and/or use of iterative reconstruction technique. FINDINGS: LOWER THORAX: Redemonstrated is a small nodule right middle lobe. Mild atelectasis and or scarring changes both lung bases including the middle lobe and lingular regions. No effusion or basilar pneumothorax. Heart appears enlarged. No significant pericardial effusion. Prostatic aortic valve again noted tiny hiatal hernia LIVER: Liver is borderline/mildly enlarged measuring nearly 19 cm in CC dimension. GALLBLADDER AND BILE DUCTS: Gallbladder physiologically distended. No evidence of intraluminal gallbladder calculi. Could PANCREAS: Pancreas appears slightly atrophic and fatty replaced. No obvious pancreatic mass or collection. SPLEEN: Unremarkable. No splenomegaly. ADRENALS: Unremarkable. KIDNEYS AND URETERS: Unremarkable. No stone or hydronephrosis. BLADDER: Urinary bladder is collapsed about an in situ unclamped Pérez catheter. Small amount of air is present within the urinary bladder likely due to instrumentation. Urinary bladder wall cannot be adequately evaluated. REPRODUCTIVE: Unremarkable as visualized APPENDIX: Normal-appearing appendix BOWEL: Evaluation of the bowel is somewhat limited due to incomplete opacification. Stomach is incompletely distended. Visualized loops of small bowel exhibit normal contour and caliber. No evidence of acute mechanical small bowel obstruction with oral contrast material extending into the colon to the level of the mid-distal transverse colon region.. No definitive mural wall thickening. PERITONEUM: Unremarkable. No fluid collection. No free air. Small fat containing umbilical hernia. LYMPH NODES: Unremarkable. No enlarged lymph nodes. VASCULATURE: Unremarkable. No aortic aneurysm. Mild aortic atherosclerotic calcification or mural plaque present thoracic aorta and abdominal aorta BONES: Multilevel degenerative spondylosis of the lower thoracic and lumbar spine. 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 Bibasilar atelectasis with small nodule right middle lobe for which PET-CT scan could be performed if indicated No evidence of acute mechanical bowel obstruction. The urinary bladder is collapsed about an in situ unclamped Pérez catheter with secondary bladder wall thickening. Bladder wall cannot be adequately evaluated.
--- NOTE | 2018-05-29 20:33 | PN ---
DATE: 05/29/2018 SUBJECTIVE: The patient's abdominal pain improved. No retrosternal chest pain, no shortness of breath. PHYSICAL EXAMINATION VITAL SIGNS: Blood pressure 121/60, heart rate 61, temperature 98.4, respirations 18. HEENT: Normocephalic. CHEST: Minimal rhonchi. HEART: S1 and S2 regular. EXTREMITIES: Trace leg edema. LABORATORY DATA: Hemoglobin and hematocrit are 9 and 26.6. White count and platelet count are within normal limits. Today's BUN and creatinine are 76 and 3.5 respectively. ASSESSMENT: 1. Advanced renal insufficiency. 2. Severe aortic stenosis. 3. Abdominal discomfort. 4. Hypertension. RECOMMENDATIONS: Continue Crestor 2.5 mg once a day, intravenous heparin infusion and therapeutic regimen for prosthetic aortic valve replacement. Jacky Fay MD
[2018-05-29] MEDS: Rosuvastatin Calcium 2.5 mg Tab PO SCH (21:45)
[2018-05-30] MEDS: Heparin25000 units/250ml 1/2NS 25,000 UNITS/250 ML BAG IV PRN ×3 (04:18→20:32)
[2018-05-30 04:21] LABS: BASO % 0.5 % (0.0-2.0); EOS # 0.1 K/uL (0.0-0.7); HEMOGLOBIN 9.2 g/dL (11.0-16.0); LYMPH # 2.1 K/uL (1.0-4.3); LYMPH % 31.9 % (20.0-40.0); MEAN CELL VOLUME 87.6 fL (81.0-99.0); MEAN CORPUSCULAR HEMOGLOBIN 29.5 pg (27.0-31.0); MEAN CORPUSCULAR HGB CONC 33.7 g/dL (33.0-37.0); MEAN PLATELET VOLUME 8.9 fL (7.2-11.7); MONO # 0.6 K/uL (0.0-0.8); MONO % 9.2 % (0.0-10.0); NEUT # 3.7 K/uL (1.8-7.0); NEUT % 56.4 % (50.0-75.0); RBC 3.11 Mil/uL (3.80-5.20); WHITE BLOOD COUNT 6.6 K/uL (4.8-10.8)
[2018-05-30 04:29] LABS: INR 1.4; PROTHROMBIN TIME 14.9 SECONDS (9.7-12.2)
[2018-05-30 06:51] LABS: ALB/GLOB RATIO 1.2 (1.0-2.1); ALBUMIN 3.4 g/dL (3.5-5.0); CALCIUM 10.3 mg/dl (8.6-10.4)
[2018-05-30] MEDS: Pantoprazole 40 mg EC Tab PO SCH (10:55)
--- NOTE | 2018-05-30 10:57 | CP.PCM.PN ---
Subjective - Date & Time of Evaluation Date of Evaluation: 05/30/18 Time of Evaluation: 10:57 - Subjective Subjective: pt deniers any sob, c/o pain in back lower thoracic/ lumbar spine pain Objective - Vital Signs/Intake and Output Vital Signs (last 24 hours): Temp Pulse Resp BP Pulse Ox 98.6 F 65 20 131/63 100 05/30/18 07:00 05/30/18 07:00 05/30/18 07:00 05/30/18 07:00 05/30/18 07:00 Intake and Output: 05/30/18 05/30/18 06:59 18:59 Intake Total 654.3 Output Total 1550 Balance -895.7 - Medications Medications: Current Medications Acetaminophen (Tylenol 325mg Tab) 650 mg PO Q6 PRN PRN Reason: Pain, Mild (1-3) Last Admin: 05/28/18 20:14 Dose: 650 mg Albuterol/Ipratropium (Duoneb 3 Mg/0.5 Mg (3 Ml) Ud) 3 ml INH RQ6 PRN PRN Reason: Shortness of Breath Last Admin: 05/27/18 19:53 Dose: 3 ml Docusate Sodium (Colace) 100 mg PO TID [facility] Last Admin: 05/29/18 19:11 Dose: Not Given Furosemide (Lasix) 40 mg IVP DAILY [facility] Last Admin: 05/29/18 09:30 Dose: 40 mg Gabapentin (Neurontin) 100 mg PO BID [facility] Last Admin: 05/29/18 19:10 Dose: 100 mg Heparin Sodium/Sodium Chloride (Heparin 70889 Units/250ml 1/2 Normal Saline) 25,000 units in 250 mls @ 17.264 mls/hr IV .[id number] PRN; Protocol PRN Reason: PROTOCOL Last Admin: 05/30/18 05:46 Dose: 22 units/kg/hr, 17.264 mls/hr Lactulose (Enulose) 20 gm PO HS [facility] Last Admin: 05/29/18 22:00 Dose: Not Given Montelukast Sodium (Singulair) 10 mg PO HS [facility] Last Admin: 05/29/18 21:44 Dose: 10 mg Pantoprazole Sodium (Protonix Ec Tab) 40 mg PO DAILY [facility] Last Admin: 05/29/18 09:28 Dose: 40 mg Rosuvastatin Calcium (Crestor) 2.5 mg PO HS [facility] Last Admin: 05/29/18 21:45 Dose: 2.5 mg Sodium Bicarbonate (Sodium Bicarbonate Tab) 650 mg PO Q8 [facility] Last Admin: 05/30/18 06:22 Dose: 650 mg - Labs Labs: 05/30/18 04:18 05/30/18 04:18 PT 14.9 SECONDS (9.7-12.2) H 05/30/18 04:18 INR 1.4 05/30/18 04:18 APTT 41 SECONDS (21-34) H D 05/30/18 04:18 - Constitutional Appears: Well, Non-toxic, No Acute Distress - Head Exam Head Exam: ATRAUMATIC, NORMAL INSPECTION, NORMOCEPHALIC - Eye Exam Eye Exam: EOMI, Normal appearance, PERRL Pupil Exam: NORMAL ACCOMODATION - ENT Exam ENT Exam: Mucous Membranes Moist - Respiratory Exam Respiratory Exam: Clear to Ausculation Bilateral, NORMAL BREATHING PATTERN - Cardiovascular Exam Cardiovascular Exam: REGULAR RHYTHM, +S1, +S2 - Rectal Exam Rectal Exam: Deferred - Back Exam Back Exam: tenderness Additional comments: lower thoracic/lumbar tenderness + - Neurological Exam Neurological Exam: Alert, Awake, CN II-XII Intact, Oriented x3 - Skin Skin Exam: Normal Color, Warm Assessment and Plan - Assessment and Plan (Free Text) Assessment: 78 yo female with pmh/o htn, hld, cad, s/p Prosthetic Aortic valve, cad, cardiac arrythmias, arthritis, ckd was admitted with nausea, vomitings, diarrhea, b/l flank pain, h/o use of IM Feldene ( NSAIDS) 1. Non oliguric JONATHAN sec to ATN, FENA 1.9 2. HTN 3. s/P Aortic valve replacement 4. Mild chf 5. Abdominal pain renal function is stable, 3.6 ---->4.2 ---->4.0----->4.1----->3.5--->3.6 today c/w lasix [address] scan abd/pelvis with po contrast : no acute pathology f/u bmp daily, no need for hd at this time check x ray of thotacic and LS spine to r/o DJD
[2018-05-30] MEDS ORDERED: Potassium Chloride 20 mEq ER Tab PO ONE (12:00)
--- NOTE | 2018-05-30 13:48 | CARD ---
APPROVED REPORT Date of service: 05/28/2018 EKG Measurement Heart [id number] <Conclusion> Normal sinus rhythm Cannot rule out Inferior infarct, age undetermined T wave abnormality, consider anterolateral ischemia Abnormal ECG
--- NOTE | 2018-05-30 21:28 | PN ---
DATE: 05/30/2018 FOLLOWUP SUBJECTIVE: The patient denies any shortness of breath or chest discomfort. PHYSICAL EXAMINATION: VITAL SIGNS: Blood pressure 131/63, heart rate 65, temperature 98.6, respirations 20. HEENT: Pale conjunctivae. CHEST: Minimal basal rhonchi. HEART: S1 and S2 are regular. EXTREMITIES: No edema. LABORATORY DATA: Today's hemoglobin and hematocrit 9.2 and 27.2. Today's BUN and creatinine 75 and 3.6. Glucose is 108, potassium 3.5. Abdominal and pelvic CT scan report, no acute intra-abdominal pathology. ASSESSMENT: 1. Acute renal insufficiency. 2. Improved congestive heart failure. 3. Severe aortic stenosis. 4. Chronic obstructive lung disease. 5. Status post aortic valve replacement. RECOMMENDATIONS: Continue intravenous heparin in therapeutic regimen. The most recent PTT is 46. Today's INR is 1.4. Continue Neurontin 100 mg twice a day, Singulair 10 mg once a day, Crestor 2.5 mg daily. Jacky Fay MD
[2018-05-30] MEDS: Rosuvastatin Calcium 2.5 mg Tab PO SCH (21:47)
--- NOTE | 2018-05-31 00:10 | PN ---
DATE: 05/30/2018 SUBJECTIVE: The patient is seen today, 05/30/2018. She is complaining of back pain and generalized weakness, improved appetite. OBJECTIVE: VITAL SIGNS: Blood pressure 117/64, temperature 98.3, respiratory rate of 20, and pulse 86. HEENT: Pupils equal and reactive to light. Slightly pale mucosa of the conjunctivae. NECK: Supple. No JVD. No carotid bruit. No lymph nodes. No thyromegaly. CHEST AND LUNGS: Bilateral symmetrical expansion. Good air exchange. No rales, no rhonchi. CARDIOVASCULAR SYSTEM: PMI not localized. S1, S2. No additional sounds. ABDOMEN: Normoactive bowel sounds. No tenderness. No organomegaly. No masses. EXTREMITIES: No cyanosis, no clubbing, no edema. CENTRAL NERVOUS SYSTEM: Alert, awake, and oriented x2. No neurological deficit could be appreciated. ASSESSMENT: 1. Acute renal failure, multifactorial. 2. Dehydration with acute tubular necrosis and possible nonsteroidal anti-inflammatory drugs side-effect. 3. Hypertension. 4. Osteoarthritis. 5. Prosthetic aortic valve. PLAN: Continue current medications and continue heparin on anticipation for any procedure. We will follow cardiology and renal consults and recommendations. Carlos Alberto Rojo MD
[2018-05-31 07:09] LABS: BASO % 0.6 % (0.0-2.0); HEMOGLOBIN 9.4 g/dL (11.0-16.0); LYMPH # 2.3 K/uL (1.0-4.3); MEAN PLATELET VOLUME 9.6 fL (7.2-11.7); MONO # 0.7 K/uL (0.0-0.8); NEUT # 3.7 K/uL (1.8-7.0)
[2018-05-31 07:40] LABS: EOS # 0.2 K/uL (0.0-0.7); EOS % 2.2 % (0.0-4.0); LYMPH % 33.4 % (20.0-40.0); MEAN CELL VOLUME 87.4 fL (81.0-99.0); MEAN CORPUSCULAR HEMOGLOBIN 29.9 pg (27.0-31.0); MEAN CORPUSCULAR HGB CONC 34.3 g/dL (33.0-37.0); MONO % 10.2 % (0.0-10.0); NEUT % 53.6 % (50.0-75.0); RBC 3.12 Mil/uL (3.80-5.20); RED CELL DISTRIBUTION WIDTH 13.8 % (11.5-14.5)
[2018-05-31 07:47] LABS: ALB/GLOB RATIO 1.1 (1.0-2.1); ALBUMIN 3.2 g/dL (3.5-5.0); CALCIUM 10.1 mg/dl (8.6-10.4); INR 1.3; PROTHROMBIN TIME 14.6 SECONDS (9.7-12.2)
--- NOTE | 2018-05-31 08:43 | RAD ---
Date of service: 05/30/2018 PROCEDURE: Radiographs of the Lumbar Spine. HISTORY: back pain COMPARISON: CT abdomen and pelvis with sagittal reconstructions 05/28/2018 FINDINGS: BONES: 3 mm anterior subluxation of L5 relative to S1-believe secondary to degenerative ligamentous laxity/facet arthrosis. Spondylosis T12-L1 and L2 most notably-additional areas of spondylosis and degenerative type anterior wedging of the inferior thoracic spine partially visualized. No acute fracture suspect. DISC SPACES: Marked displaced narrowing T12-L1 and L1-2. Marked disc space narrowing posteriorly at L5-S1. OTHER FINDINGS: Atherosclerotic vascular calcifications present. Generalized osteopenia save L1 vertebral body with subchondral sclerosis here. Sclerotic and hypertrophic pubic symphyseal joint arthrosis. Minimal inferior bilateral sclerotic SI joint sclerosis-bilateral. IMPRESSION: No acute fracture suspect. Degenerative changes as above.
[2018-05-31] MEDS: Pantoprazole 40 mg EC Tab PO SCH (10:12)
--- NOTE | 2018-05-31 10:26 | CP.PCM.PN ---
Subjective - Date & Time of Evaluation Date of Evaluation: 05/31/18 Time of Evaluation: 10:25 - Subjective Subjective: no complaints, no sob, renal function is improving, s.cr 3.1 Objective - Vital Signs/Intake and Output Vital Signs (last 24 hours): Temp Pulse Resp BP Pulse Ox 97.5 F L 66 18 121/64 98 05/31/18 07:00 05/31/18 07:57 05/31/18 07:00 05/31/18 10:12 05/31/18 07:00 Intake and Output: 05/31/18 05/31/18 06:59 18:59 Intake Total 400 Output Total 950 Balance -550 - Medications Medications: Current Medications Acetaminophen (Tylenol 325mg Tab) 650 mg PO Q6 PRN PRN Reason: Pain, Mild (1-3) Last Admin: 05/30/18 16:19 Dose: 650 mg Albuterol/Ipratropium (Duoneb 3 Mg/0.5 Mg (3 Ml) Ud) 3 ml INH RQ6 PRN PRN Reason: Shortness of Breath Last Admin: 05/27/18 19:53 Dose: 3 ml Docusate Sodium (Colace) 100 mg PO TID [facility] Last Admin: 05/31/18 10:12 Dose: 100 mg Furosemide (Lasix) 40 mg IVP DAILY [facility] Last Admin: 05/31/18 10:12 Dose: 40 mg Gabapentin (Neurontin) 100 mg PO BID [facility] Last Admin: 05/31/18 10:12 Dose: 100 mg Heparin Sodium/Sodium Chloride (Heparin 84112 Units/250ml 1/2 Normal Saline) 25,000 units in 250 mls @ 17.264 mls/hr IV .[id number] PRN; Protocol PRN Reason: PROTOCOL Last Admin: 05/30/18 20:32 Dose: 22 units/kg/hr, 17.264 mls/hr Lactulose (Enulose) 20 gm PO HS [facility] Last Admin: 05/30/18 21:48 Dose: Not Given Montelukast Sodium (Singulair) 10 mg PO HS [facility] Last Admin: 05/30/18 21:47 Dose: 10 mg Pantoprazole Sodium (Protonix Ec Tab) 40 mg PO DAILY [facility] Last Admin: 05/31/18 10:12 Dose: 40 mg Rosuvastatin Calcium (Crestor) 2.5 mg PO HS [facility] Last Admin: 05/30/18 21:47 Dose: 2.5 mg Sodium Bicarbonate (Sodium Bicarbonate Tab) 650 mg PO Q8 [facility] Last Admin: 05/31/18 06:01 Dose: 650 mg - Labs Labs: 05/31/18 06:53 05/31/18 06:53 PT 14.6 SECONDS (9.7-12.2) H 05/31/18 06:53 INR 1.3 05/31/18 06:53 APTT 51 SECONDS (21-34) H D 05/31/18 06:53 - Constitutional Appears: Well, Non-toxic, No Acute Distress - Head Exam Head Exam: ATRAUMATIC, NORMAL INSPECTION, NORMOCEPHALIC - Eye Exam Eye Exam: EOMI, Normal appearance, PERRL Pupil Exam: NORMAL ACCOMODATION - ENT Exam ENT Exam: Mucous Membranes Moist - Respiratory Exam Respiratory Exam: Clear to Ausculation Bilateral, NORMAL BREATHING PATTERN - Cardiovascular Exam Cardiovascular Exam: REGULAR RHYTHM, +S1, +S2 - GI/Abdominal Exam GI & Abdominal Exam: Soft, Normal Bowel Sounds - Rectal Exam Rectal Exam: Deferred - Neurological Exam Neurological Exam: Alert, Awake, CN II-XII Intact, Oriented x3 - Psychiatric Exam Psychiatric exam: Normal Affect - Skin Skin Exam: Dry, Normal Color Assessment and Plan - Assessment and Plan (Free Text) Assessment: 78 yo female with pmh/o HTN, osteoarthritis, s/p Aortic valve replacement on AC with JONATHAN 1.JONATHAN sec to ATN 2.HTN 3.CHF 4.DJD of spine f/u bmp daily c/w lasix 40 mg po qd, no need for HD as renal function is improving
[2018-05-31] MEDS: Heparin25000 units/250ml 1/2NS 25,000 UNITS/250 ML BAG IV PRN (12:29)
[2018-05-31] MEDS: Potassium Chloride 20 mEq ER Tab PO SCH (14:21)
--- NOTE | 2018-05-31 19:36 | PN ---
DATE: 05/31/2018 SUBJECTIVE: The patient is currently sleeping, does not appear to be in any discomfort. The daughter is at the bedside and the daughter reported to me the patient had mild productive cough. PHYSICAL EXAMINATION: VITAL SIGNS: Blood pressure 121/64, heart rate 66, temperature 97.5, respirations 18. NECK: The patient has no apparent jugular venous distention. LABORATORIES: The hemoglobin and hematocrit 9.4 and 27.3. White count and platelet count are within normal limits. Today's SMA-7. Today's BUN, creatinine are 70 and 3.1 respectively. Potassium 3.5. Lumbar spine x-ray, no acute fracture suspected, degenerative changes. ASSESSMENT: 1. Acute renal insufficiency. 2. Severe aortic stenosis. 3. Mild diastolic heart failure. 4. Chronic obstructive lung disease. 5. Mild hypokalemia. RECOMMENDATIONS: Continue K-Dur 20 mEq orally daily. Continue intravenous heparin in a therapeutic regimen for prosthetic aortic valve. The most recent PTT is 51 seconds. Continue Lasix 20 ml intravenously daily, Crestor 2.5 mg once a day, albuterol inhaler every 6 hours. Jacky Fay MD
[2018-05-31] MEDS: Rosuvastatin Calcium 2.5 mg Tab PO SCH (21:05)
[2018-06-01] MEDS: Heparin25000 units/250ml 1/2NS 25,000 UNITS/250 ML BAG IV PRN ×2 (04:34→19:36)
--- NOTE | 2018-06-01 06:13 | PN ---
DATE: 05/31/2018 SUBJECTIVE: The patient is seen today 05/31/2018. She is less short of breath and she is able to lie flat in bed. PHYSICAL EXAMINATION VITAL SIGNS: Blood pressure is 119/71, temperature 98.3, respiratory rate 20 and pulse 76. HEENT: Pupils equal and reactive to light. Normal-appearing mucosa of the conjunctivae, oropharynx and nasal membrane mucosa. NECK: Supple. No JVD. No carotid bruit. No lymph node. No thyromegaly. CHEST AND LUNGS: Bilateral symmetrical expansion. Good air exchange. No rales. No rhonchi. CARDIOVASCULAR SYSTEM: PMI not localized. S1, S2. No additional sounds. ABDOMEN: Normoactive bowel sounds. No tenderness. No organomegaly. No masses. EXTREMITIES: No cyanosis, no clubbing, no edema. BEAD PREPARER: Alert, awake, oriented x2. No neurological deficit could be appreciated. ASSESSMENT: 1. Acute kidney injury with uremic symptoms. 2. Severe aortic stenosis. 3. Hypertension. 4. Osteoarthritis. PLAN: Follow Cardiology and Nephrology recommendations. We will start the patient on warfarin as kidney function is improving and less likely that hemodialysis will be needed, and once INR is therapeutic, we will stop the heparin. We will start the patient on as she had urinary retention and on anticipation of removing of the Pérez catheter. Carlos Alberto Rojo MD
[2018-06-01 06:58] LABS: INR 1.3; PROTHROMBIN TIME 14.4 SECONDS (9.7-12.2)
[2018-06-01 07:15] LABS: ALB/GLOB RATIO 1.4 (1.0-2.1); ALBUMIN 3.5 g/dL (3.5-5.0); CALCIUM 9.6 mg/dl (8.6-10.4)
[2018-06-01 07:16] LABS: BASO % 0.6 % (0.0-2.0); EOS # 0.2 K/uL (0.0-0.7); EOS % 2.4 % (0.0-4.0); HEMOGLOBIN 9.7 g/dL (11.0-16.0); LYMPH # 2.4 K/uL (1.0-4.3); LYMPH % 33.5 % (20.0-40.0); MEAN CELL VOLUME 87.8 fL (81.0-99.0); MEAN CORPUSCULAR HEMOGLOBIN 30.5 pg (27.0-31.0); MEAN CORPUSCULAR HGB CONC 34.8 g/dL (33.0-37.0); MEAN PLATELET VOLUME 9.4 fL (7.2-11.7); MONO # 0.7 K/uL (0.0-0.8); MONO % 9.5 % (0.0-10.0); NEUT # 3.8 K/uL (1.8-7.0); RBC 3.16 Mil/uL (3.80-5.20); RED CELL DISTRIBUTION WIDTH 14.3 % (11.5-14.5); WHITE BLOOD COUNT 7.1 K/uL (4.8-10.8)
[2018-06-01] MEDS: Potassium Chloride 20 mEq ER Tab PO SCH (10:01)
[2018-06-01] MEDS: Pantoprazole 40 mg EC Tab PO SCH (10:02)
--- NOTE | 2018-06-01 12:35 | CP.PCM.PN ---
Subjective - Date & Time of Evaluation Date of Evaluation: 06/01/18 Time of Evaluation: 12:35 - Subjective Subjective: c/o back pain, no sob, no cp, no abd. pain, pt is oob to chair Objective - Vital Signs/Intake and Output Vital Signs (last 24 hours): Temp Pulse Resp BP Pulse Ox 98.0 F 70 20 124/72 98 06/01/18 07:00 06/01/18 07:00 06/01/18 07:00 06/01/18 10:02 06/01/18 07:00 Intake and Output: 06/01/18 06/01/18 06:59 18:59 Intake Total 300 Output Total 1100 Balance -800 - Medications Medications: Current Medications Acetaminophen (Tylenol 325mg Tab) 650 mg PO Q6 PRN PRN Reason: Pain, Mild (1-3) Last Admin: 05/31/18 17:04 Dose: 650 mg Albuterol/Ipratropium (Duoneb 3 Mg/0.5 Mg (3 Ml) Ud) 3 ml INH RQ6 PRN PRN Reason: Shortness of Breath Last Admin: 05/27/18 19:53 Dose: 3 ml Bethanechol Chloride (Urecholine) 10 mg PO TID [facility] Last Admin: 06/01/18 10:01 Dose: 10 mg Docusate Sodium (Colace) 100 mg PO TID [facility] Last Admin: 06/01/18 10:01 Dose: 100 mg Furosemide (Lasix) 40 mg IVP DAILY [facility] Last Admin: 06/01/18 10:02 Dose: 40 mg Gabapentin (Neurontin) 100 mg PO BID [facility] Last Admin: 06/01/18 10:02 Dose: 100 mg Heparin Sodium/Sodium Chloride (Heparin 79637 Units/250ml 1/2 Normal Saline) 25,000 units in 250 mls @ 17.264 mls/hr IV .[id number] PRN; Protocol PRN Reason: PROTOCOL Last Admin: 06/01/18 04:34 Dose: 22 units/kg/hr, 17.264 mls/hr Lactulose (Enulose) 20 gm PO [facility] Last Admin: 05/31/18 21:06 Dose: 20 gm Montelukast Sodium (Singulair) 10 mg PO [facility] Last Admin: 05/31/18 21:05 Dose: 10 mg Pantoprazole Sodium (Protonix Ec Tab) 40 mg PO DAILY [facility] Last Admin: 06/01/18 10:02 Dose: 40 mg Potassium Chloride (K-Dur 20 Meq Er Tab) 20 meq PO DAILY [facility] Stop: 06/03/18 12:01 Last Admin: 06/01/18 10:01 Dose: 20 meq Rosuvastatin Calcium (Crestor) 2.5 mg PO HS [facility] Last Admin: 05/31/18 21:05 Dose: 2.5 mg Sodium Bicarbonate (Sodium Bicarbonate Tab) 650 mg PO Q8 [facility] Last Admin: 06/01/18 05:40 Dose: 650 mg - Labs Labs: 06/01/18 06:46 06/01/18 06:46 PT 14.4 SECONDS (9.7-12.2) H 06/01/18 06:46 INR 1.3 06/01/18 06:46 APTT 68 SECONDS (21-34) H D 06/01/18 06:46 - Constitutional Appears: Well, Non-toxic, No Acute Distress - Head Exam Head Exam: ATRAUMATIC, NORMAL INSPECTION - Eye Exam Eye Exam: EOMI, Normal appearance, PERRL Pupil Exam: NORMAL ACCOMODATION - ENT Exam ENT Exam: Mucous Membranes Moist - Neck Exam Neck Exam: Full ROM - Respiratory Exam Respiratory Exam: Clear to Ausculation Bilateral, NORMAL BREATHING PATTERN - Cardiovascular Exam Cardiovascular Exam: REGULAR RHYTHM, +S1, +S2 - GI/Abdominal Exam GI & Abdominal Exam: Soft, Normal Bowel Sounds - Rectal Exam Rectal Exam: Deferred - Neurological Exam Neurological Exam: Alert, Awake, CN II-XII Intact, Normal Gait, Oriented x3 Additional comments: ambulating with walker - Psychiatric Exam Psychiatric exam: Normal Affect, Normal Mood - Skin Skin Exam: Normal Color, Warm Assessment and Plan - Assessment and Plan (Free Text) Assessment: 78 yo female with pmh/o HTN, osteoarthritis, s/p Aortic valve replacement on AC with JONATHAN 1.JONATHAN sec to ATN sec to ? NSAIDS 2.HTN 3.CHF 4.DJD of spine f/u bmp daily c/w lasix 40 mg po qd, no need for HD as renal function is improving, s.cr 3.0 today, c/w physical therapy
--- NOTE | 2018-06-01 16:23 | PN ---
DATE: 06/01/2018 SUBJECTIVE: The patient denies any chest pain. She will resume concomitant therapy. Still on IV heparin. No reported arrhythmia. PHYSICAL EXAMINATION: VITAL SIGNS: Blood pressure 124/72, heart rate 70, temperature 98, respirations 20. HEENT: Normocephalic. CHEST: Clear. HEART: S1 and S2 regular. EXTREMITIES: Trace leg edema. LABORATORY DATA: Hemoglobin and hematocrit are 9.7 and 27.8. Today's BUN and creatinine 66 and 3. Today's INR is 1.3. PTT is 68. ASSESSMENT AND PLAN: 1. Acute renal insufficiency. 2. Severe prosthetic aortic valve stenosis. 3. Anemia. RECOMMENDATIONS: Continue Crestor 2.5 mg once a day, continue IV heparin in a therapeutic regimen, continue Lasix 40 mg intravenously daily, K-Dur 20 mEq once a day, and we will order Coumadin 5 mg p.o. today. Jacky Fay MD
[2018-06-01] MEDS: Rosuvastatin Calcium 2.5 mg Tab PO SCH (21:22)
[2018-06-02 06:47] LABS: INR 1.4
[2018-06-02 06:48] LABS: ALB/GLOB RATIO 1.4 (1.0-2.1); ALBUMIN 3.5 g/dL (3.5-5.0); CALCIUM 10.3 mg/dl (8.6-10.4)
[2018-06-02] MEDS: Potassium Chloride 20 mEq ER Tab PO SCH (09:55)
[2018-06-02] MEDS: Pantoprazole 40 mg EC Tab PO SCH (09:56)
[2018-06-02] MEDS: Heparin25000 units/250ml 1/2NS 25,000 UNITS/250 ML BAG IV PRN (11:34)
--- NOTE | 2018-06-02 12:10 | CP.PCM.PN ---
Subjective - Date & Time of Evaluation Date of Evaluation: 06/02/18 Time of Evaluation: 12:10 - Subjective Subjective: pt is feeling better, no sob, no chest pain c/o slight b/l leg swelling Objective - Vital Signs/Intake and Output Vital Signs (last 24 hours): Temp Pulse Resp BP Pulse Ox 98.1 F 70 18 120/73 96 06/02/18 07:00 06/02/18 07:00 06/02/18 07:00 06/02/18 09:54 06/02/18 07:00 Intake and Output: 06/02/18 06/02/18 06:59 18:59 Intake Total 387.6 250 Output Total 1100 Balance -712.4 250 - Medications Medications: Current Medications Acetaminophen (Tylenol 325mg Tab) 650 mg PO Q6 PRN PRN Reason: Pain, Mild (1-3) Last Admin: 06/01/18 13:12 Dose: 650 mg Albuterol/Ipratropium (Duoneb 3 Mg/0.5 Mg (3 Ml) Ud) 3 ml INH RQ6 PRN PRN Reason: Shortness of Breath Last Admin: 05/27/18 19:53 Dose: 3 ml Bethanechol Chloride (Urecholine) 10 mg PO TID [facility] Last Admin: 06/02/18 09:55 Dose: 10 mg Dicyclomine HCl (Bentyl) 10 mg PO BID [facility] Docusate Sodium (Colace) 100 mg PO TID [facility] Last Admin: 06/02/18 09:55 Dose: 100 mg Furosemide (Lasix) 40 mg IVP DAILY [facility] Last Admin: 06/02/18 09:54 Dose: 40 mg Gabapentin (Neurontin) 100 mg PO BID [facility] Last Admin: 06/02/18 09:55 Dose: 100 mg Heparin Sodium/Sodium Chloride (Heparin 17788 Units/250ml 1/2 Normal Saline) 25,000 units in 250 mls @ 17.264 mls/hr IV .[id number] PRN; Protocol PRN Reason: PROTOCOL Last Admin: 06/02/18 11:34 Dose: 22 units/kg/hr, 17.264 mls/hr Lactulose (Enulose) 20 gm PO [facility] Last Admin: 06/01/18 21:22 Dose: Not Given Montelukast Sodium (Singulair) 10 mg PO HS [facility] Last Admin: 06/01/18 21:21 Dose: 10 mg Pantoprazole Sodium (Protonix Ec Tab) 40 mg PO DAILY [facility] Last Admin: 06/02/18 09:56 Dose: 40 mg Potassium Chloride (K-Dur 20 Meq Er Tab) 20 meq PO DAILY [facility] Stop: 06/03/18 12:01 Last Admin: 06/02/18 09:55 Dose: 20 meq Rosuvastatin Calcium (Crestor) 2.5 mg PO HS [facility] Last Admin: 06/01/18 21:22 Dose: 2.5 mg Sodium Bicarbonate (Sodium Bicarbonate Tab) 650 mg PO Q8 [facility] Last Admin: 06/01/18 21:22 Dose: 650 mg Warfarin Sodium (Coumadin) 5 mg PO 1800 [facility] Stop: 06/02/18 18:01 - Labs Labs: 06/01/18 06:46 06/02/18 06:24 PT 15.0 SECONDS (9.7-12.2) H 06/02/18 06:24 INR 1.4 06/02/18 06:24 APTT 85 SECONDS (21-34) H D 06/02/18 06:24 - Constitutional Appears: Well, Non-toxic, No Acute Distress - Head Exam Head Exam: ATRAUMATIC, NORMAL INSPECTION, NORMOCEPHALIC - Eye Exam Eye Exam: EOMI, Normal appearance, PERRL Pupil Exam: NORMAL ACCOMODATION - ENT Exam ENT Exam: Mucous Membranes Moist - Neck Exam Neck Exam: Full ROM - Respiratory Exam Respiratory Exam: Clear to Ausculation Bilateral, NORMAL BREATHING PATTERN - Cardiovascular Exam Cardiovascular Exam: REGULAR RHYTHM, +S1, +S2 - GI/Abdominal Exam GI & Abdominal Exam: Soft, Normal Bowel Sounds - Rectal Exam Rectal Exam: Deferred - Extremities Exam Additional comments: slight swelling of both LE, no calf muscle tenderness - Neurological Exam Neurological Exam: Alert, CN II-XII Intact, Normal Gait, Oriented x3 Additional comments: ambulating with walker with family and Physical therapy - Psychiatric Exam Psychiatric exam: Normal Affect, Normal Mood - Skin Skin Exam: Normal Color, Warm Assessment and Plan - Assessment and Plan (Free Text) Assessment: 78 yo female with pmh/o HTN, osteoarthritis, s/p Aortic valve replacement on AC with JONATHAN 1.JONATHAN sec to ATN sec to ? NSAIDS 2.HTN 3.CHF 4.DJD of spine 5. Anemia sec to CKD f/u bmp daily c/w lasix 40 mg po qd, no need for HD as renal function is improving, s.cr 3.3---> 3.6----> 4.2---->3.0 ---->2.7 today, c/w physical therapy can d/c sharp cath d/w Customer Relations Representative Dr. Fay will add epogen 50885 units sc x1, add nephrocaps 1tab po qd d/c NAHCO3
--- NOTE | 2018-06-02 14:02 | CP.PCM.CON ---
History of Present Illness - History of Present Illness History of Present Illness: HAND SURGERY CONSULT NOTE FOR DR. NEAL 78yo F with PMHx of arthritis, COPD, CAD, HTN, HLD, diastolic CHF, s/p aortic valve replacement on coumadin originally presented to the ED on 05/20 with dizziness, nausea and vomiting. Found to have JONATHAN. Hand surgery consulted for carpal tunnel syndrome. Pt states she had right carpal tunnel surgery 15 yrs ago in [place] but does not remember the name of the surgeon. States that she has been having pain, numbness and tingling in the first 3 1/2 fingers on her left hand. She reports difficulty grasping objects. She would like surgery to release the carpal tunnel but was worried about being on coumadin and her heart being affected by the anesthesia. PMHx: arthritis, COPD, CAD, HTN, HLD, diastolic CHF, aortic stenosis Surgeries: aortic valve replacement on coumadin Allergies: tramadol Review of Systems - Review of Systems All systems: reviewed and no additional remarkable complaints except (as per HPI) Past Patient History - Infectious Disease Hx of Infectious Diseases: None - Past Medical History & Family History Past Medical History?: Yes - Past Social History Smoking Status: Never Smoked - CARDIAC Hx Cardiac Disorders: Yes Hx Hypercholesterolemia: Yes Hx Hypertension: Yes - PULMONARY Hx Respiratory Disorders: Yes Hx Bronchitis: Yes - NEUROLOGICAL Hx Neurological Disorder: No - HEENT Hx HEENT Problems: Yes Hx Cataracts: Yes - RENAL Hx Chronic Kidney Disease: No - ENDOCRINE/METABOLIC Hx Endocrine Disorders: No - HEMATOLOGICAL/ONCOLOGICAL Hx Blood Disorders: No - INTEGUMENTARY Hx Dermatological Problems: No - MUSCULOSKELETAL/RHEUMATOLOGICAL Hx Arthritis: Yes (KNEE; BACK) - GASTROINTESTINAL Hx Gastrointestinal Disorders: No - GENITOURINARY/GYNECOLOGICAL Hx Genitourinary Disorders: No - PSYCHIATRIC Hx Psychophysiologic Disorder: No Hx Substance Use: No - SURGICAL HISTORY Hx Surgeries: Yes Hx Valve Replacement: Yes (AORTIC) Other/Comment: "open heart surgery" as per melina in 1990 - ANESTHESIA Hx Anesthesia: Yes Hx Anesthesia Reactions: No Hx Malignant Hyperthermia: No Has any member of the family had a problem w/ anesthesia?: No Meds Allergies/Adverse Reactions: Allergies Allergy/AdvReac Type Severity Reaction Status Date / Time tramadol Allergy VOMITING Verified 05/20/18 18:18 - Medications Medications: Current Medications Acetaminophen (Tylenol 325mg Tab) 650 mg PO Q6 PRN PRN Reason: Pain, Mild (1-3) Last Admin: 06/01/18 13:12 Dose: 650 mg Albuterol/Ipratropium (Duoneb 3 Mg/0.5 Mg (3 Ml) Ud) 3 ml INH RQ6 PRN PRN Reason: Shortness of Breath Last Admin: 05/27/18 19:53 Dose: 3 ml Bethanechol Chloride (Urecholine) 10 mg PO TID [facility] Last Admin: 06/02/18 13:01 Dose: 10 mg Dicyclomine HCl (Bentyl) 10 mg PO BID [facility] Docusate Sodium (Colace) 100 mg PO TID [facility] Last Admin: 06/02/18 13:01 Dose: 100 mg Furosemide (Lasix) 40 mg IVP DAILY [facility] Last Admin: 06/02/18 09:54 Dose: 40 mg Gabapentin (Neurontin) 100 mg PO BID [facility] Last Admin: 06/02/18 09:55 Dose: 100 mg Heparin Sodium/Sodium Chloride (Heparin 34962 Units/250ml 1/2 Normal Saline) 25,000 units in 250 mls @ 17.264 mls/hr IV .[id number] PRN; Protocol PRN Reason: PROTOCOL Last Admin: 06/02/18 11:34 Dose: 22 units/kg/hr, 17.264 mls/hr Lactulose (Enulose) 20 gm PO HS [facility] Last Admin: 06/01/18 21:22 Dose: Not Given Montelukast Sodium (Singulair) 10 mg PO HS [facility] Last Admin: 06/01/18 21:21 Dose: 10 mg Pantoprazole Sodium (Protonix Ec Tab) 40 mg PO DAILY [facility] Last Admin: 06/02/18 09:56 Dose: 40 mg Potassium Chloride (K-Dur 20 Meq Er Tab) 20 meq PO DAILY [facility] Stop: 06/03/18 12:01 Last Admin: 06/02/18 09:55 Dose: 20 meq Rosuvastatin Calcium (Crestor) 2.5 mg PO HS [facility] Last Admin: 06/01/18 21:22 Dose: 2.5 mg Sodium Bicarbonate (Sodium Bicarbonate Tab) 650 mg PO Q8 [facility] Last Admin: 06/02/18 13:01 Dose: 650 mg Warfarin Sodium (Coumadin) 5 mg PO 1800 [facility] Stop: 06/02/18 18:01 Physical Exam - Constitutional Appears: Non-toxic, No Acute Distress - Head Exam Head Exam: ATRAUMATIC, NORMAL INSPECTION - Eye Exam Eye Exam: EOMI, Normal appearance - Respiratory Exam Respiratory Exam: NORMAL BREATHING PATTERN. absent: Respiratory Distress - Cardiovascular Exam Cardiovascular Exam: +S1, +S2 - GI/Abdominal Exam GI & Abdominal Exam: Soft. absent: Tenderness - Extremities Exam Additional comments: Left hand: + tinel's, + phalens test, thenar atrophy Right hand: - tinels, - phalens Results - Vital Signs Recent Vital Signs: Last Vital Signs Temp 98.1 F 06/02/18 07:00 Pulse 70 06/02/18 07:00 Resp 18 06/02/18 07:00 BP 120/73 06/02/18 09:54 Pulse Ox 96 06/02/18 07:00 - Labs Result Diagrams: 06/01/18 06:46 06/02/18 06:24 Labs: Laboratory Results - last 24 hr 05/27/18 06/02/18 06/02/18 12:16 06:24 06:24 PT 15.0 H INR 1.4 APTT 85 H D Sodium 139 Potassium 3.5 L Chloride 103 Carbon Dioxide 28 Anion Gap 11 BUN 68 H Creatinine 2.7 H Est GFR ( Amer) 21 Est GFR (Non-Af Amer) 17 Random Glucose 95 Calcium 10.3 Total Bilirubin 0.6 AST 39 H ALT 40 Alkaline Phosphatase 106 Total Protein 6.1 L Albumin 3.5 Globulin 2.6 Albumin/Globulin Ratio 1.4 Rheumatoid Factor IgG <5 Rheumatoid Factor IgA <5 Rheumatoid Factor IgM <5 Assessment & Plan - Assessment and Plan (Free Text) Assessment: 78yo F with PMHx of arthritis, COPD, CAD, HTN, HLD, diastolic CHF, s/p aortic valve replacement on coumadin with left carpal tunnel syndrome - Elective outpatient endoscopic carpal tunnel release under local block + light IV sedation - No need for holding coumadin/bridging - Follow up outpatient with Dr. Neal in her office for scheduling - Discussed plan with Dr. Aaron Baker PGY-4
[2018-06-02] MEDS: Bacitracin Ointment 30 GM TUBE TOP SCH (18:13)
--- NOTE | 2018-06-02 18:33 | PN ---
DATE: 06/02/2018 SUBJECTIVE: The patient denies chest pain. Shortness of breath has improved. PHYSICAL EXAMINATION VITAL SIGNS: Blood pressure 139/67, heart rate 70, temperature 98.1, respirations 18. HEENT: Pale conjunctivae. CHEST: Minimal rhonchi. HEART: S1, S2 regular. EXTREMITIES: Trace leg edema. LABORATORY DATA: Today's INR is 1.4, PTT 85. ASSESSMENT: 1. Severe prosthetic aortic valve stenosis. 2. Improving renal insufficiency. Today's blood urea nitrogen and creatinine are 68 and 2.7 respectively. 3. Anemia. 4. Chronic obstructive pulmonary disease. RECOMMENDATIONS: The patient will receive Coumadin 5 mg today. Continue intravenous heparin therapeutic regimen. Continue K-Dur 20 mEq once day, Lasix 40 mg intravenously daily. I discussed the case with the porcelain slusher, Dr. Antonio. Pérez catheter will be discontinued. Jacky Fay MD
[2018-06-02] MEDS: Rosuvastatin Calcium 2.5 mg Tab PO SCH (21:01)
[2018-06-03] MEDS: Heparin25000 units/250ml 1/2NS 25,000 UNITS/250 ML BAG IV PRN ×3 (03:44→17:25)
[2018-06-03 07:08] LABS: INR 1.5; PROTHROMBIN TIME 16.6 SECONDS (9.7-12.2)
[2018-06-03 07:17] LABS: CALCIUM 10.2 mg/dl (8.6-10.4)
--- NOTE | 2018-06-03 07:49 | PN ---
DATE: 06/02/2018 SUBJECTIVE: The patient is seen today. She is having generalized weakness and postprandial abdominal pain and discomfort. PHYSICAL EXAMINATION VITAL SIGNS: Blood pressure is 147/70, temperature 97.6, respiratory rate 20 and pulse 79. HEENT: Pupils equal and reactive to light. Normal-appearing mucosa of the conjunctivae, oropharynx and nasal membrane mucosa. NECK: Supple. No JVD. No carotid bruit. No lymph node. No thyromegaly. CHEST AND LUNGS: Bilateral symmetrical expansion. Good air exchange. No rales, no rhonchi. CARDIOVASCULAR SYSTEM: PMI not localized. S1, S2. No additional sounds. ABDOMEN: Normoactive bowel sounds. No tenderness. No organomegaly. No masses. EXTREMITIES: No cyanosis, clubbing, no edema. CENTRAL NERVOUS SYSTEM: Alert, awake, oriented x2. No neurological deficit could be appreciated. ASSESSMENT: Acute renal failure, hypertension, prosthetic aortic valve stenosis. PLAN: Continue current medications. Follow Nephrology and Cardiology recommendations. We will start the patient on Bentyl 10 mg twice a day. We will discontinue the Pérez catheter. Give Coumadin 5 mg as INR is still subtherapeutic and continue bridging with heparin. Carlos Alberto Rojo MD
[2018-06-03 08:15] LABS: HEMOGLOBIN 9.7 g/dL (11.0-16.0); MEAN CELL VOLUME 88.3 fL (81.0-99.0); MEAN CORPUSCULAR HEMOGLOBIN 30.1 pg (27.0-31.0); MEAN CORPUSCULAR HGB CONC 34.1 g/dL (33.0-37.0); MEAN PLATELET VOLUME 9.3 fL (7.2-11.7); RBC 3.22 Mil/uL (3.80-5.20); RED CELL DISTRIBUTION WIDTH 14.5 % (11.5-14.5); WHITE BLOOD COUNT 7.5 K/uL (4.8-10.8)
[2018-06-03] MEDS: Multivitamin Vitamin B Complex (Nephro-Vite) Tab PO SCH (08:40)
[2018-06-03] MEDS ORDERED: Potassium Chloride 20 mEq ER Tab PO STA (09:01)
[2018-06-03] MEDS: Pantoprazole 40 mg EC Tab PO SCH (09:27)
[2018-06-03] MEDS: Bacitracin Ointment 30 GM TUBE TOP SCH ×2 (09:27→17:32)
[2018-06-03] MEDS: Potassium Chloride 20 mEq ER Tab PO SCH (09:28)
[2018-06-03] MEDS ORDERED: EPOETIN ALFA 10,000 UNIT/ML ML SC ONE (10:00)
--- NOTE | 2018-06-03 14:04 | PN ---
DATE: 06/03/2018 SUBJECTIVE: The patient is experiencing cough. She denies any chest pain. PHYSICAL EXAMINATION: VITAL SIGNS: Blood pressure 132/71, heart rate 77, temperature 98.4, respirations 18. HEENT: Pale conjunctivae. CHEST: Minimal rhonchi. HEART: S1 and S2 regular. EXTREMITIES: Trace leg edema. LABORATORY DATA: Hemoglobin and hematocrit 9.7 and 28.4. White count and platelet count within normal limit. Today's BUN and creatinine 63 and 2.5 and today's potassium 3.3. The most recent PTT is 107 and today's INR is 1.5. ASSESSMENT: 1. Resolving acute renal insufficiency. 2. Status post mechanical aortic valve prosthesis with severe aortic stenosis. 3. Anemia. 4. Chronic obstructive lung disease. 5. Hypokalemia. RECOMMENDATIONS: The heparin dose was adjusted according to the heparin protocol. I will administer additional 20 mEq of oral K-Dur today and the patient will receive Coumadin 5 mg p.o. this evening. Jacky Fay MD
[2018-06-03 16:15] VITALS: RESP 20
--- NOTE | 2018-06-03 17:22 | CP.PCM.PN ---
Subjective - Date & Time of Evaluation Date of Evaluation: 06/03/18 Time of Evaluation: 17:22 - Subjective Subjective: pt is feeling better, sob, ambulating with walker with daughter Objective - Vital Signs/Intake and Output Vital Signs (last 24 hours): Temp Pulse Resp BP Pulse Ox 98.2 F 77 20 142/62 99 06/03/18 15:00 06/03/18 15:00 06/03/18 15:00 06/03/18 15:00 06/03/18 15:00 Intake and Output: 06/03/18 06/03/18 06:59 18:59 Intake Total 707.6 Output Total 900 Balance -192.4 - Medications Medications: Current Medications Acetaminophen (Tylenol 325mg Tab) 650 mg PO Q6 PRN PRN Reason: Pain, Mild (1-3) Last Admin: 06/01/18 13:12 Dose: 650 mg Albuterol/Ipratropium (Duoneb 3 Mg/0.5 Mg (3 Ml) Ud) 3 ml INH RQ6 PRN PRN Reason: Shortness of Breath Last Admin: 05/27/18 19:53 Dose: 3 ml Bacitracin (Bacitracin) 1 gm TOP BID [facility] Last Admin: 06/03/18 09:27 Dose: 1 applic Bethanechol Chloride (Urecholine) 10 mg PO TID [facility] Last Admin: 06/03/18 14:17 Dose: 10 mg Dicyclomine HCl (Bentyl) 10 mg PO BID [facility] Last Admin: 06/03/18 09:26 Dose: 10 mg Docusate Sodium (Colace) 100 mg PO TID [facility] Last Admin: 06/03/18 14:17 Dose: 100 mg Furosemide (Lasix) 40 mg IVP DAILY [facility] Last Admin: 06/03/18 09:27 Dose: 40 mg Gabapentin (Neurontin) 100 mg PO BID [facility] Last Admin: 06/03/18 09:27 Dose: 100 mg Heparin Sodium/Sodium Chloride (Heparin 07018 Units/250ml 1/2 Normal Saline) 25,000 units in 250 mls @ 14.909 mls/hr IV .[id number] PRN; Protocol PRN Reason: PROTOCOL Last Admin: 06/03/18 09:21 Dose: 19 units/kg/hr, 14.909 mls/hr Lactulose (Enulose) 20 gm PO [facility] Last Admin: 06/01/18 21:22 Dose: Not Given Montelukast Sodium (Singulair) 10 mg PO [facility] Last Admin: 06/02/18 21:01 Dose: 10 mg Pantoprazole Sodium (Protonix Ec Tab) 40 mg PO DAILY [facility] Last Admin: 06/03/18 09:27 Dose: 40 mg Rosuvastatin Calcium (Crestor) 2.5 mg PO [facility] Last Admin: 06/02/18 21:01 Dose: 2.5 mg Vitamin B Complex/Vit C/Folic Acid (Nephro-Ginna) 1 tab PO 0800 [facility] Last Admin: 06/03/18 08:40 Dose: 1 tab Warfarin Sodium (Coumadin) 5 mg PO 1800 [facility] Stop: 06/03/18 18:01 - Labs Labs: 06/03/18 06:46 06/03/18 06:46 PT 16.6 SECONDS (9.7-12.2) H 06/03/18 06:46 INR 1.5 06/03/18 06:46 APTT 103 SECONDS (21-34) H* 06/03/18 15:51 - Constitutional Appears: Well, Non-toxic, No Acute Distress - Head Exam Head Exam: ATRAUMATIC, NORMAL INSPECTION, NORMOCEPHALIC - Eye Exam Eye Exam: EOMI, Normal appearance, PERRL Pupil Exam: NORMAL ACCOMODATION - ENT Exam ENT Exam: Mucous Membranes Moist - Neck Exam Neck Exam: Full ROM - Respiratory Exam Respiratory Exam: Clear to Ausculation Bilateral, NORMAL BREATHING PATTERN - Cardiovascular Exam Cardiovascular Exam: REGULAR RHYTHM, +S1, +S2 - GI/Abdominal Exam GI & Abdominal Exam: Soft, Normal Bowel Sounds - Rectal Exam Rectal Exam: Deferred - Extremities Exam Additional comments: slight swelling of legs+ - Neurological Exam Neurological Exam: Alert, Awake, CN II-XII Intact, Normal Gait, Oriented x3 - Psychiatric Exam Psychiatric exam: Normal Mood - Skin Skin Exam: Normal Color, Warm Assessment and Plan - Assessment and Plan (Free Text) Assessment: 78 yo female with pmh/o HTN, osteoarthritis, s/p Aortic valve replacement on AC with JONATHAN 1.JONATHAN sec to ATN sec to ? NSAIDS 2.HTN 3.CHF 4.DJD of spine 5. Anemia sec to CKD f/u bmp daily c/w lasix 40 mg po qd, no need for HD as renal function is improving, s.cr 3.3---> 3.6----> 4.2---->3.0 ---->2.7 --->2.5 today, c/w physical therapy epogen 35106 units sc x1, add nephrocaps 1tab po qd
[2018-06-03] MEDS: Rosuvastatin Calcium 2.5 mg Tab PO SCH (21:24)
[2018-06-04] MEDS: Heparin25000 units/250ml 1/2NS 25,000 UNITS/250 ML BAG IV PRN ×2 (01:39→22:14)
[2018-06-04 06:52] LABS: INR 1.7; PROTHROMBIN TIME 18.8 SECONDS (9.7-12.2)
[2018-06-04] MEDS: Multivitamin Vitamin B Complex (Nephro-Vite) Tab PO SCH (08:37)
[2018-06-04] MEDS: Bacitracin Ointment 30 GM TUBE TOP SCH ×2 (10:00→18:12)
[2018-06-04] MEDS: Pantoprazole 40 mg EC Tab PO SCH (10:11)
[2018-06-04] MEDS: Potassium Chloride 20 mEq ER Tab PO SCH (12:13)
[2018-06-04 13:47] LABS: CALCIUM 10.8 mg/dl (8.6-10.4)
--- NOTE | 2018-06-04 15:42 | CP.PCM.PN ---
Subjective - Date & Time of Evaluation Date of Evaluation: 06/04/18 Time of Evaluation: 15:42 - Subjective Subjective: pt is feeling better, no cp, no sob, less leg swelling Objective - Vital Signs/Intake and Output Vital Signs (last 24 hours): Temp Pulse Resp BP Pulse Ox 98.1 F 70 20 118/73 96 06/04/18 07:00 06/04/18 07:00 06/04/18 07:00 06/04/18 10:57 06/04/18 07:00 Intake and Output: 06/04/18 06/04/18 06:59 18:59 Intake Total 250 700 Output Total 750 Balance -500 700 - Medications Medications: Current Medications Acetaminophen (Tylenol 325mg Tab) 650 mg PO Q6 PRN PRN Reason: Pain, Mild (1-3) Last Admin: 06/04/18 15:41 Dose: 650 mg Albuterol/Ipratropium (Duoneb 3 Mg/0.5 Mg (3 Ml) Ud) 3 ml INH RQ6 PRN PRN Reason: Shortness of Breath Last Admin: 05/27/18 19:53 Dose: 3 ml Bacitracin (Bacitracin) 1 gm TOP BID [facility] Last Admin: 06/04/18 10:00 Dose: 1 applic Bethanechol Chloride (Urecholine) 10 mg PO TID [facility] Last Admin: 06/04/18 14:17 Dose: 10 mg Dicyclomine HCl (Bentyl) 10 mg PO BID [facility] Last Admin: 06/04/18 10:14 Dose: 10 mg Docusate Sodium (Colace) 100 mg PO TID [facility] Last Admin: 06/04/18 14:17 Dose: 100 mg Gabapentin (Neurontin) 100 mg PO BID [facility] Last Admin: 06/04/18 10:14 Dose: 100 mg Heparin Sodium/Sodium Chloride (Heparin 64475 Units/250ml 1/2 Normal Saline) 25,000 units in 250 mls @ 14.909 mls/hr IV .[id number] PRN; Protocol PRN Reason: PROTOCOL Last Admin: 06/04/18 01:39 Dose: 16 units/kg/hr, 12.555 mls/hr Lactulose (Enulose) [address] [facility] Last Admin: 06/03/18 21:24 Dose: Not Given Montelukast Sodium (Singulair) 10 [address] [facility] Last Admin: 06/03/18 21:24 Dose: 10 mg Pantoprazole Sodium (Protonix Ec Tab) 40 mg PO DAILY [facility] Last Admin: 06/04/18 10:11 Dose: 40 mg Potassium Chloride (K-Dur 20 Meq Er Tab) 20 meq PO DAILY [facility] Last Admin: 06/04/18 12:13 Dose: 20 meq Rosuvastatin Calcium (Crestor) 2.5 mg PO HS [facility] Last Admin: 06/03/18 21:24 Dose: 2.5 mg Vitamin B Complex/Vit C/Folic Acid (Nephro-Ginna) 1 tab PO 0800 [facility] Last Admin: 06/04/18 08:37 Dose: 1 tab Warfarin Sodium (Coumadin) 5 mg PO 1800 [facility] Stop: 06/04/18 18:01 - Labs Labs: 06/03/18 06:46 06/04/18 13:31 PT 18.8 SECONDS (9.7-12.2) H 06/04/18 06:35 INR 1.7 06/04/18 06:35 APTT 78 SECONDS (21-34) H D 06/04/18 06:35 - Constitutional Appears: Non-toxic, Toxic, No Acute Distress - Head Exam Head Exam: ATRAUMATIC, NORMAL INSPECTION, NORMOCEPHALIC - Eye Exam Eye Exam: EOMI, Normal appearance, PERRL Pupil Exam: NORMAL ACCOMODATION - ENT Exam ENT Exam: Mucous Membranes Moist - Neck Exam Neck Exam: Full ROM, Normal Inspection - Respiratory Exam Respiratory Exam: Clear to Ausculation Bilateral, NORMAL BREATHING PATTERN - Cardiovascular Exam Cardiovascular Exam: REGULAR RHYTHM, +S1, +S2 - GI/Abdominal Exam GI & Abdominal Exam: Soft, Normal Bowel Sounds - Rectal Exam Rectal Exam: Deferred - Extremities Exam Additional comments: slight swelling of rt leg, no edema of left leg - Neurological Exam Neurological Exam: Alert, Awake, CN II-XII Intact, Normal Gait, Oriented x3 - Psychiatric Exam Psychiatric exam: Normal Mood - Skin Skin Exam: Normal Color, Warm Assessment and Plan - Assessment and Plan (Free Text) Assessment: 78 yo female with pmh/o HTN, osteoarthritis, s/p Aortic valve replacement on AC with JONATHAN 1.JONATHAN sec to ATN sec to ? NSAIDS 2.HTN 3.CHF 4.DJD of spine 5. Anemia sec to CKD 6. hypercalcemia , is mostlikely sec to Mild dehydration sec to lasix f/u bmp daily no need for HD as renal function is improving, s.cr 3.3-->3.6-->4.2-->3.0 -->2.7 -->2.5-->2.6 today, c/w physical therapy epogen 32946 units sc x1, add nephrocaps 1tab po qd d/c lasix and encourage po fluid intake
--- NOTE | 2018-06-04 16:15 | PN ---
DATE: 06/04/2018 SUBJECTIVE: The patient is still experiencing productive cough. No retrosternal chest pain. PHYSICAL EXAMINATION: VITAL SIGNS: Blood pressure 112/73, heart rate 70, temperature 98.1, respirations 20. HEENT: Normocephalic. CHEST: Minimal rhonchi. HEART: S1 and S2, regular. EXTREMITIES: No edema. LABORATORY DATA: Today's PTT is 78, today's INR is 1.7. ASSESSMENT: 1. Improving renal insufficiency. 2. Severe mechanical aortic valve stenosis. 3. Chronic obstructive lung disease. RECOMMENDATIONS: Continue current therapeutic intravenous heparin. The patient will receive Coumadin 5 mg p.o. today. Continue K-Dur 20 mEq orally once a day and Lasix 40 mg intravenously once a day. I will follow as well as INR. Case was discussed with the patient's son at the bedside. Jacky Fay MD
[2018-06-04] MEDS: Rosuvastatin Calcium 2.5 mg Tab PO SCH (21:16)
--- NOTE | 2018-06-04 23:29 | PN ---
DATE: 06/03/2018his is a late entry for her visit on 06/03/2018. SUBJECTIVE: The patient was not in any cardiopulmonary distress. PHYSICAL EXAMINATION: VITAL SIGNS: Blood pressure 119/73, temperature 98.5, respiratory rate 20, and pulse 66. HEENT: Pupils equal, reactive to light. Normal appearing mucosa of the conjunctivae, oropharynx, and nasal membrane mucosa. NECK: Supple. No JVD. No carotid bruit. No lymph node. No thyromegaly. CHEST AND LUNGS: Bilateral symmetrical expansion. Good air exchange. No rales. No rhonchi. CARDIOVASCULAR SYSTEM: PMI not localized. S1, S2. No additional sounds. ABDOMEN: Normoactive bowel sounds. No tenderness. No organomegaly. No masses. EXTREMITIES: No cyanosis, no clubbing, no edema. CENTRAL NERVOUS SYSTEM: Alert, awake, oriented x2. No neurological deficits could be appreciated. ASSESSMENT: Acute renal failure, prosthetic stenotic aortic valve, hypertension, and osteoarthritis. PLAN: Continue current medications and follow cardiology and nephrology recommendations. We will give Coumadin 5 mg for 06/03/2018. The patient's family at the bedside. Carlos Alberto Rojo MD
--- NOTE | 2018-06-04 23:41 | PN ---
DATE: 06/04/2018 SUBJECTIVE: The patient is seen today, 06/04/2018. She is not in any cardiopulmonary distress. PHYSICAL EXAMINATION: GENERAL: Blood pressure 136/75, temperature 97.9, respiratory rate 20, and pulse 83. HEENT: Pupils equal, reactive to light. Normal-appearing mucosa of the conjunctivae, oropharynx, and nasal membrane mucosa. NECK: Supple. No JVD. No carotid bruit. No lymph node. No thyromegaly. CHEST AND LUNGS: Bilateral symmetrical expansion. Good air exchange. No rales. No rhonchi. CARDIOVASCULAR SYSTEM: PMI not localized. S1, S2. No additional sounds. ABDOMEN: Normoactive bowel sounds. No tenderness. No organomegaly. No masses. EXTREMITIES: No cyanosis, no clubbing, no edema. CENTRAL NERVOUS SYSTEM: Alert, awake, oriented x2. No neurological deficits could be appreciated. ASSESSMENT: Acute renal failure, hypertension, osteoarthritis, prosthetic aortic valve with severe aortic valve stenosis. PLAN: Continue current medications. Lasix was stopped, and his blood pressure will be elevated. We will resume antihypertensive medications. Follow cardiology and nephrology recommendations. Also, we will give Coumadin 5 mg today. Continue heparin and check INR tomorrow. Carlos Alberto Rojo MD
[2018-06-05 08:13] LABS: BASO # 0.1 K/uL (0.0-0.2); BASO % 0.8 % (0.0-2.0); EOS # 0.2 K/uL (0.0-0.7); EOS % 2.3 % (0.0-4.0); LYMPH # 2.1 K/uL (1.0-4.3); LYMPH % 30.9 % (20.0-40.0); MEAN CELL VOLUME 88.7 fL (81.0-99.0); MEAN CORPUSCULAR HEMOGLOBIN 30.2 pg (27.0-31.0); MEAN CORPUSCULAR HGB CONC 34.1 g/dL (33.0-37.0); MEAN PLATELET VOLUME 9.1 fL (7.2-11.7); MONO # 0.5 K/uL (0.0-0.8); MONO % 7.7 % (0.0-10.0); NEUT # 3.9 K/uL (1.8-7.0); NEUT % 58.3 % (50.0-75.0); RBC 3.3 Mil/uL (3.80-5.20); RED CELL DISTRIBUTION WIDTH 14.5 % (11.5-14.5); WHITE BLOOD COUNT 6.7 K/uL (4.8-10.8)
[2018-06-05 08:32] LABS: INR 1.9; PROTHROMBIN TIME 21.1 SECONDS (9.7-12.2)
[2018-06-05 08:52] LABS: CALCIUM 10.4 mg/dl (8.6-10.4)
[2018-06-05] MEDS: Pantoprazole 40 mg EC Tab PO SCH (09:34)
[2018-06-05] MEDS: Multivitamin Vitamin B Complex (Nephro-Vite) Tab PO SCH (09:34)
[2018-06-05] MEDS: Bacitracin Ointment 30 GM TUBE TOP SCH ×2 (09:34→17:29)
[2018-06-05] MEDS: Potassium Chloride 20 mEq ER Tab PO SCH (09:35)
--- NOTE | 2018-06-05 17:18 | CP.PCM.PN ---
Subjective - Date & Time of Evaluation Date of Evaluation: 06/05/18 Time of Evaluation: 17:18 - Subjective Subjective: pt is feeling better, no sob, no chest pain, pt is oob to chair and ambulating with walker with pt's daughter Objective - Vital Signs/Intake and Output Vital Signs (last 24 hours): Temp Pulse Resp BP Pulse Ox 97.8 F 74 20 120/74 96 06/05/18 17:00 06/05/18 17:00 06/05/18 17:00 06/05/18 17:00 06/05/18 17:00 Intake and Output: 06/05/18 06/05/18 06:59 18:59 Intake Total 250 Output Total 450 Balance -200 - Medications Medications: Current Medications Acetaminophen (Tylenol 325mg Tab) 650 mg PO Q6 PRN PRN Reason: Pain, Mild (1-3) Last Admin: 06/05/18 12:11 Dose: 650 mg Albuterol/Ipratropium (Duoneb 3 Mg/0.5 Mg (3 Ml) Ud) 3 ml INH RQ6 PRN PRN Reason: Shortness of Breath Last Admin: 05/27/18 19:53 Dose: 3 ml Bacitracin (Bacitracin) 1 gm TOP BID [facility] Last Admin: 06/05/18 09:34 Dose: 1 applic Bethanechol Chloride (Urecholine) 10 mg PO TID [facility] Last Admin: 06/05/18 15:32 Dose: 10 mg Dicyclomine HCl (Bentyl) 10 mg PO BID [facility] Last Admin: 06/05/18 09:34 Dose: 10 mg Docusate Sodium (Colace) 100 mg PO TID [facility] Last Admin: 06/05/18 15:33 Dose: 100 mg Gabapentin (Neurontin) 100 mg PO BID [facility] Last Admin: 06/05/18 09:34 Dose: 100 mg Heparin Sodium/Sodium Chloride (Heparin 80354 Units/250ml 1/2 Normal Saline) 25,000 units in 250 mls @ 14.909 mls/hr IV .[id number] PRN; Protocol PRN Reason: PROTOCOL Last Admin: 06/04/18 22:14 Dose: 16 units/kg/hr, 12.555 mls/hr Lactulose (Enulose) 20 gm PO [facility] Last Admin: 06/04/18 21:17 Dose: Not Given Montelukast Sodium (Singulair) 10 mg PO HS [facility] Last Admin: 06/04/18 21:16 Dose: 10 mg Pantoprazole Sodium (Protonix Ec Tab) 40 mg PO DAILY [facility] Last Admin: 06/05/18 09:34 Dose: 40 mg Potassium Chloride (K-Dur 20 Meq Er Tab) 20 meq PO DAILY [facility] Last Admin: 06/05/18 09:35 Dose: 20 meq Rosuvastatin Calcium (Crestor) 2.5 mg PO HS [facility] Last Admin: 06/04/18 21:16 Dose: 2.5 mg Vitamin B Complex/Vit C/Folic Acid (Nephro-Ginna) 1 tab PO 0800 [facility] Last Admin: 06/05/18 09:34 Dose: 1 tab Warfarin Sodium (Coumadin) 5 mg PO 1800 [facility] Stop: 06/05/18 18:01 - Labs Labs: 06/05/18 07:58 06/05/18 07:58 PT 21.1 SECONDS (9.7-12.2) H 06/05/18 07:58 INR 1.9 06/05/18 07:58 APTT 85 SECONDS (21-34) H D 06/05/18 07:58 - Constitutional Appears: Well, Non-toxic, No Acute Distress - Head Exam Head Exam: ATRAUMATIC, NORMAL INSPECTION, NORMOCEPHALIC - Eye Exam Eye Exam: EOMI, Normal appearance, PERRL Pupil Exam: NORMAL ACCOMODATION - ENT Exam ENT Exam: Mucous Membranes Moist - Neck Exam Neck Exam: Full ROM, Normal Inspection - Respiratory Exam Respiratory Exam: Clear to Ausculation Bilateral, NORMAL BREATHING PATTERN - Cardiovascular Exam Cardiovascular Exam: REGULAR RHYTHM, +S1, +S2 - GI/Abdominal Exam GI & Abdominal Exam: Soft, Normal Bowel Sounds - Rectal Exam Rectal Exam: Deferred - Extremities Exam Extremities Exam: Full ROM, Normal Inspection Additional comments: no edema of legs - Neurological Exam Neurological Exam: Alert, Awake, CN II-XII Intact, Normal Gait, Oriented x3 - Psychiatric Exam Psychiatric exam: Normal Affect Assessment and Plan - Assessment and Plan (Free Text) Assessment: 78 yo female with pmh/o HTN, osteoarthritis, s/p Aortic valve replacement on AC with JONATHAN 1.JONATHAN sec to ATN sec to ? NSAIDS 2.HTN 3.CHF 4.DJD of spine 5. Anemia sec to CKD 6. hypercalcemia , is mostlikely sec to Mild dehydration sec to lasix, ca level is improving from 10.8--->10.4 f/u bmp daily no need for HD as renal function is improving, s.cr 3.3-->3.6-->4.2-->3.0 -->2.7 -->2.5-->2.6 today, c/w physical therapy s/p epogen 45802 units sc x1, c/w nephrocaps 1tab po qd d/mika lasix and encourage po fluid intake c/w anticoagulation as per cardiology
[2018-06-05] MEDS: Heparin25000 units/250ml 1/2NS 25,000 UNITS/250 ML BAG IV PRN (18:37)
--- NOTE | 2018-06-05 19:00 | PN ---
DATE: 06/05/2018 SUBJECTIVE: The patient complains of dizziness at times, no syncope or loss of balance. She is still experiencing productive cough. PHYSICAL EXAMINATION: VITAL SIGNS: Blood pressure 146/74, heart rate 69, temperature 97.7, and respiration 20. HEENT: Normocephalic. CHEST: Minimal rhonchi. HEART: S1, S2. Regular. EXTREMITIES: Trace leg edema. LABORATORY DATA: Today's BUN and creatinine 56 and 2.6 respectively. Potassium is 3.5. Today's INR is 1.9, PTT 85, today's hemoglobin and hematocrit are 10 and 29.3. ASSESSMENT: 1. Improving renal insufficiency. 2. Severe prosthetic aortic valve stenosis. 3. Hypokalemia. 4. Mild anemia. 5. Chronic obstructive lung disease. RECOMMENDATIONS: The patient will receive Coumadin 5 mg once a day, continue IV heparin and therapeutic regimen. Continue K-Dur 20 mEq orally once a day, Singulair 10 mg once a day. The case was discussed with the patient's daughter at the bedside. Jacky Fay MD
[2018-06-05] MEDS: Rosuvastatin Calcium 2.5 mg Tab PO SCH (21:15)
[2018-06-06 05:04] VITALS: O2SAT 97
[2018-06-06 07:10] LABS: HEMOGLOBIN 9.8 g/dL (11.0-16.0); MEAN CELL VOLUME 87.9 fL (81.0-99.0); MEAN CORPUSCULAR HEMOGLOBIN 29.9 pg (27.0-31.0); MEAN PLATELET VOLUME 9.3 fL (7.2-11.7); RBC 3.28 Mil/uL (3.80-5.20); RED CELL DISTRIBUTION WIDTH 14.3 % (11.5-14.5); WHITE BLOOD COUNT 7.9 K/uL (4.8-10.8)
[2018-06-06 07:14] LABS: INR 2.4; PROTHROMBIN TIME 26.2 SECONDS (9.7-12.2)
[2018-06-06 08:34] VITALS: BP 130/61; PULSE 96; TEMP 98.2
[2018-06-06] MEDS: Multivitamin Vitamin B Complex (Nephro-Vite) Tab PO SCH (09:00)
[2018-06-06] MEDS: Potassium Chloride 20 mEq ER Tab PO SCH (10:24)
[2018-06-06] MEDS: Pantoprazole 40 mg EC Tab PO SCH (10:24)
[2018-06-06] MEDS: Bacitracin Ointment 30 GM TUBE TOP SCH (10:29)
[2018-06-06] MEDS ORDERED: Potassium Chloride 20 mEq ER Tab PO ONE (12:00)
--- NOTE | 2018-06-06 12:07 | CP.PCM.PN ---
Subjective - Date & Time of Evaluation Date of Evaluation: 06/06/18 Time of Evaluation: 12:07 - Subjective Subjective: pt denies any complaints, no sob, no pain, no edema of legs Objective - Vital Signs/Intake and Output Vital Signs (last 24 hours): Temp Pulse Resp BP Pulse Ox 98.2 F 96 H 20 130/61 97 06/06/18 07:25 06/06/18 07:25 06/06/18 07:25 06/06/18 07:25 06/06/18 07:25 - Medications Medications: Current Medications Acetaminophen (Tylenol 325mg Tab) 650 mg PO Q6 PRN PRN Reason: Pain, Mild (1-3) Last Admin: 06/06/18 05:05 Dose: 650 mg Albuterol/Ipratropium (Duoneb 3 Mg/0.5 Mg (3 Ml) Ud) 3 ml INH RQ6 PRN PRN Reason: Shortness of Breath Last Admin: 05/27/18 19:53 Dose: 3 ml Bacitracin (Bacitracin) 1 gm TOP BID [facility] Last Admin: 06/06/18 10:29 Dose: 1 applic Bethanechol Chloride (Urecholine) 10 mg PO TID [facility] Last Admin: 06/06/18 10:29 Dose: 10 mg Dicyclomine HCl (Bentyl) 10 mg PO BID [facility] Last Admin: 06/06/18 10:29 Dose: 10 mg Docusate Sodium (Colace) 100 mg PO TID [facility] Last Admin: 06/06/18 10:24 Dose: 100 mg Gabapentin (Neurontin) 100 mg PO BID [facility] Last Admin: 06/06/18 10:28 Dose: 100 mg Lactulose (Enulose) 20 gm PO HS [facility] Last Admin: 06/04/18 21:17 Dose: Not Given Montelukast Sodium (Singulair) 10 mg PO HS [facility] Last Admin: 06/05/18 21:17 Dose: 10 mg Pantoprazole Sodium (Protonix Ec Tab) 40 mg PO DAILY [facility] Last Admin: 06/06/18 10:24 Dose: 40 mg Potassium Chloride (K-Dur 20 Meq Er Tab) 20 meq PO DAILY [facility] Last Admin: 06/06/18 10:24 Dose: 20 meq Rosuvastatin Calcium (Crestor) 2.5 mg PO [facility] Last Admin: 06/05/18 21:15 Dose: 2.5 mg Vitamin B Complex/Vit C/Folic Acid (Nephro-Ginna) 1 tab PO 0800 [facility] Last Admin: 06/06/18 09:00 Dose: 1 tab Warfarin Sodium (Coumadin) 5 mg PO 1800 [facility] Stop: 06/06/18 18:01 - Labs Labs: 06/06/18 06:42 06/05/18 07:58 PT 26.2 SECONDS (9.7-12.2) H D 06/06/18 06:42 INR 2.4 D 06/06/18 06:42 APTT 77 SECONDS (21-34) H D 06/06/18 06:42 - Constitutional Appears: Well, Non-toxic, No Acute Distress - Head Exam Head Exam: ATRAUMATIC, NORMAL INSPECTION - Eye Exam Eye Exam: EOMI, Normal appearance, PERRL Pupil Exam: NORMAL ACCOMODATION - ENT Exam ENT Exam: Mucous Membranes Moist - Neck Exam Neck Exam: Full ROM - Respiratory Exam Respiratory Exam: Clear to Ausculation Bilateral, NORMAL BREATHING PATTERN - Cardiovascular Exam Cardiovascular Exam: REGULAR RHYTHM, +S1, +S2 - Rectal Exam Rectal Exam: Deferred - Neurological Exam Neurological Exam: Alert, Awake, CN II-XII Intact, Oriented x3 - Psychiatric Exam Psychiatric exam: Normal Affect, Normal Mood - Skin Skin Exam: Dry, Normal Color Assessment and Plan - Assessment and Plan (Free Text) Assessment: 78 yo female with pmh/o HTN, osteoarthritis, s/p Aortic valve replacement on AC with JONATHAN 1.JONATHAN sec to ATN sec to ? NSAIDS 2.HTN 3.CHF 4.DJD of spine 5. Anemia sec to CKD 6. hypercalcemia , is most likely sec to Mild dehydration sec to lasix, ca level is improving from 10.8--->10.4 f/u bmp daily no need for HD as renal function is improving, s.cr 3.3-->3.6-->4.2-->3.0 -->2.7 -->2.5-->2.6 --->2.6 today, c/w physical therapy s/p epogen [id number] units sc x1, c/w nephrocaps 1tab po qd d/mika lasix and encourage po fluid intake c/w anticoagulation as per cardiology
--- NOTE | 2018-06-06 12:45 | PCM.HF ---
Heart Failure Core Measure - Heart Failure Ejection Fraction: 40 % or Greater (EF 71%) SAMIA Inhibitor Prescribed: No Contraindication/Reason for not providing: renal insufficiency Beta-Nathalie Prescribed: Bisoprolol Angiotensin II Receptor Nathalie Prescribed: No Contraindication/Reason for not providing: renal dysfunction AnticoagulationTherapy for Atrial Fibrillation/Atrialflutter: Yes Aldosterone Antagonist Prescribed: No Contraindication/Reason for not providing: RENAL INSUFFICIENCY Hydralazine Nitrate Prescribed: No Contraindication/Reason for not providing: EF>40% Implantable Cardioverter Defibrillator Therapy: No Contraindication/Reason for not providing: EF >40% Cardiac Resynchronization Therapy Prescribed: No Contraindication/Reason for not providing: not indicated - Follow up Will be discharged to: Home Follow Up Date (must be within 7 days from discharge): 06/10/18
--- NOTE | 2018-06-06 17:01 | CP.PCM.PN ---
Subjective - Date & Time of Evaluation Date of Evaluation: 06/06/18 Time of Evaluation: 11:00 - Subjective Subjective: alert, awake, denies sob or chest pains, NAD. Objective - Vital Signs/Intake and Output Vital Signs (last 24 hours): Temp Pulse Resp BP Pulse Ox 98.2 F 96 H 20 130/61 97 06/06/18 07:25 06/06/18 07:25 06/06/18 07:25 06/06/18 07:25 06/06/18 07:25 - Labs Labs: 06/06/18 06:42 06/05/18 07:58 PT 26.2 SECONDS (9.7-12.2) H D 06/06/18 06:42 INR 2.4 D 06/06/18 06:42 APTT 77 SECONDS (21-34) H D 06/06/18 06:42 Assessment and Plan - Assessment and Plan (Free Text) Assessment: 78 year old female admitted with CHF, renal insufficiency, seen and examined. Alert oriented, ambulating well. Discussed with DR Rojo, plan to discharge home today. All the prescriptions given, advised to get the blood work done this week and follow up in the office in 1 week.
--- NOTE | 2018-06-06 18:21 | PN ---
DATE: 06/06/2018 SUBJECTIVE: The patient complains of postural dizziness, but no syncope. PHYSICAL EXAMINATION VITAL SIGNS: Blood pressure , heart rate 96, temperature 98.2, respirations 20. HEENT: Pale conjunctivae. CHEST: Minimal rhonchi. HEART: S1 and S2 regular. Grade III/ ejection systolic murmur over the left sternal border. ABDOMEN: Soft. EXTREMITIES: No edema. LABORATORY DATA: Today's BUN and creatinine are 56 and 2.6. Today's potassium is 3.5. Today's INR is 2.4, PTT is 77. Today's hemoglobin and hematocrit are 9.8 and 28.8. White count and platelet count are within normal limit. ASSESSMENT: 1. Severe prosthetic aortic valve stenosis. 2. Improved renal sufficiency. 3. Chronic obstructive lung disease. 4. Anemia. 5. Mild hypokalemia. RECOMMENDATIONS: Case was discussed with Dr. Antonio, the moulder operator. Continue K-Dur 20 mEq once a day. Lasix was discontinued. We will administer Coumadin 5 mg orally today. Continue Crestor 2.5 mg once a day and Singulair 10 mg at bedtime. Jacky Fay MD
--- NOTE | 2018-06-06 23:23 | DS ---
REASON FOR ADMISSION: This is a 78-year-old Citizen Of [place] female with history of multiple medical problems who was admitted for acute renal failure. COURSE OF HOSPITALIZATION: The patient was admitted to telemetry floor, and due to pulmonary edema that was sustained after starting IV fluid, the patient was transferred to intensive care unit. The patient was stabilized and brought back to the medical floor. The patient was started on Lasix by senior auditor. The patient also had a cardiology consult done by Dr. Fay. The patient's symptoms gradually improved, and blood pressure medications were held except for bisoprolol. The patient was discharged in a stable condition. The patient also was discharged on Coumadin 5 mg to monitor INR as well as BMP as an outpatient. FINAL DIAGNOSES: 1. Acute renal failure. 2. Hypertension. 3. Osteoarthritis. 4. History of bronchial asthma. 5. Prosthetic aortic valve with stenosis. [facility] MD [place]
== END 2018-06-06 15:46 | disposition home or self-care (01) | DRG 683 ==
LOC: C.ER 13:44 → C.9E 18:04 → C.5S 19:18 → C.9I 05-21 17:21 → C.6T 05-24 17:30
PROVIDERS: ADMIT Internal Medicine; ATTEND Internal Medicine
DX: N17.0 Acute kidney failure with tubular necrosis (principal); I13.0 Hypertensive heart and chronic kidney disease with heart failure and stage 1 through stage 4 chronic kidney disease, or unspecified chronic kidney disease; N39.0 Urinary tract infection, site not specified; D68.9 Coagulation defect, unspecified; I50.32 Chronic diastolic (congestive) heart failure; T82.857A Stenosis of other cardiac prosthetic devices, implants and grafts, initial encounter; J98.11 Atelectasis; N18.4 Chronic kidney disease, stage 4 (severe); E87.6 Hypokalemia; D64.9 Anemia, unspecified; E78.00 Pure hypercholesterolemia, unspecified; E86.0 Dehydration; J44.9 Chronic obstructive pulmonary disease, unspecified; M47.9 Spondylosis, unspecified; I25.10 Atherosclerotic heart disease of native coronary artery without angina pectoris

== ENCOUNTER 2018-07-21 12:33 | Inpatient (IN) | payer MEDICARE, MEDICAID ==
[2018-07-21 12:33] VITALS: BMI 30.1
[2018-07-21] MEDS ORDERED: Albuterol-Ipratrop 3 mg / 0.5 (3 ml) UD ONE (12:43)
[2018-07-21] MEDS ORDERED: Albuterol-Ipratrop 3 mg / 0.5 (3 ml) UD INH STA (12:45)
[2018-07-21 13:55] LABS: BASO # 0.1 K/uL (0.0-0.2); BASO % 0.9 % (0.0-2.0); EOS # 0.1 K/uL (0.0-0.7); HEMOGLOBIN 10.3 g/dL (11.0-16.0); LYMPH % 39.6 % (20.0-40.0); MEAN CELL VOLUME 90.6 fL (81.0-99.0); MEAN CORPUSCULAR HEMOGLOBIN 29.2 pg (27.0-31.0); MEAN CORPUSCULAR HGB CONC 32.2 g/dL (33.0-37.0); MEAN PLATELET VOLUME 9.6 fL (7.2-11.7); MONO # 0.6 K/uL (0.0-0.8); MONO % 7.9 % (0.0-10.0); NEUT # 3.9 K/uL (1.8-7.0); NEUT % 50.6 % (50.0-75.0); RBC 3.53 Mil/uL (3.80-5.20); RED CELL DISTRIBUTION WIDTH 16.1 % (11.5-14.5); WHITE BLOOD COUNT 7.7 K/uL (4.8-10.8)
[2018-07-21 14:06] LABS: INR 1.8; PROTHROMBIN TIME 19.9 SECONDS (9.7-12.2)
--- NOTE | 2018-07-21 14:22 | RAD ---
HISTORY: SOB COMPARISON: Chest x-ray performed 05/28/18 TECHNIQUE: Chest, one view. FINDINGS: Examination limited by habitus and hypoinflation. LUNGS: Hypoinflation. Mild pulmonary venous congestion. No focal consolidation. Please note that chest x-ray has limited sensitivity for the detection of pulmonary masses. PLEURA: No significant pleural effusion identified. No definite pneumothorax . CARDIOVASCULAR: Median sternotomy wires. Cardiomegaly. Ectatic aorta. Dense atherosclerotic calcifications present. OSSEOUS STRUCTURES: Osseous demineralization. Degenerative changes. VISUALIZED UPPER ABDOMEN: Unremarkable. OTHER FINDINGS: None. IMPRESSION: Mild pulmonary venous congestion. Cardiomegaly.
[2018-07-21 14:34] LABS: ALB/GLOB RATIO 1.3 (1.0-2.1); ALBUMIN 3.7 g/dL (3.5-5.0); ALT/SGPT 33 U/L (9-52); AST/SGOT 45 U/L (14-36); BLOOD UREA NITROGEN 16 mg/dL (7-17); CALCIUM 10.7 mg/dl (8.6-10.4); GFR NON-AFRICAN AMERICAN > 60
[2018-07-21 15:09] LABS: B-TYPE NATRIURETIC PEPTIDE 22500 pg/mL (0-900)
--- NOTE | 2018-07-21 15:11 | C.PDOC ---
History Of Present Illness 78 year old female brought to the ED by family for 3 days of worsening SOB and dyspnea on exertion. Patient has a history of aortic stenosis and aortic valve replacement. She reports good compliance with meds. Otherwise she denies any fever, cough, vomiting, diarrhea, or abdominal pain. Time Seen by Provider: 07/21/18 13:06 Chief Complaint (Nursing): Shortness Of Breath History Per: Patient History/Exam Limitations: no limitations Onset/Duration Of Symptoms: Days Current Symptoms Are (Timing): Still Present Past Medical History Reviewed: Historical Data, Nursing Documentation, Vital Signs Vital Signs: Last Vital Signs Temp 97.9 F 07/21/18 12:46 Pulse 63 07/21/18 13:24 Resp 20 07/21/18 13:24 BP 129/67 07/21/18 13:24 Pulse Ox 96 07/21/18 13:24 - Medical History PMH: Arthritis (KNEE; BACK), Bronchitis, CAD, Cardia Arrhythmia, HTN, Hypercholesterolemia Denies: Chronic Kidney Disease Other PMH: Aortic stenosis Other Surgeries: mechanical Aortic valve replacement Family History: States: Unknown Family Hx - Social History Hx Tobacco Use: No Hx Alcohol Use: No Hx Substance Use: No - Immunization History Hx Influenza Vaccination: Yes Hx Pneumococcal Vaccination: Yes Review Of Systems Except As Marked, All Systems Reviewed And Found Negative. Constitutional: Negative for: Fever, Chills Cardiovascular: Negative for: Chest Pain Respiratory: Positive for: Shortness of Breath, SOB with Excertion. Negative for: Cough, Hemoptysis Gastrointestinal: Negative for: Vomiting, Abdominal Pain, Diarrhea Neurological: Negative for: Weakness, Numbness Physical Exam - Physical Exam Appears: Non-toxic, In Acute Distress (in moderate respiratory distress) Skin: Warm, Dry, No Rash Head: Atraumatic, Normacephalic Eye(s): bilateral: Normal Inspection, PERRL, EOMI Oral Mucosa: Moist Neck: Normal ROM, Other (+ late carotid upstroke) Chest: Symmetrical Cardiovascular: Murmur (holosystolic murmur, late and decrescendo in the aortic focus), JVD (+) Respiratory: Accessory Muscle Use, No Rhonchi, No Wheezing, Other (moderate SOB) Gastrointestinal/Abdominal: Soft, No Tenderness, No Distention Extremity: Bilateral: Atraumatic, Normal Color And Temperature Pulses: Left Dorsalis Pedis: Normal, Right Dorsalis Pedis: Normal Neurological/Psych: Oriented x3, Normal Speech ED Course And Treatment - Laboratory Results Result Diagrams: 07/21/18 13:49 07/21/18 13:49 Lab Interpretation: Abnormal (trop o.272, BNP 22,500) ECG: Interpreted By Me ECG Rhythm: Sinus Rhythm ECG Interpretation: Normal Rate From EC O2 Sat by Pulse Oximetry: 96 (on RA) Pulse Ox Interpretation: Normal - Radiology CXR: Interpreted by Me CXR Interpretation: Yes: No Acute Disease, Heart Size, Other (+CHF) Reevaluation Time: 15:10 Reassessment Condition: Improved - Physician Consult Information Outcome Of Conversation: 1300, 1500: d/w Dr. Rojo, PMD, ok to eval and admit. 1500: d/w Dr. Cheng, Cardio- known to this pt, agrees with eval and tx ok to consult. Medical Decision Making Medical Decision Making: Records reviewed: Cardiac echo showed critical aortic stenosis. Case d/w Dr. Nelson at bedside. Impression: h/o mechanical AVR, now with calcified critical and CHF minimal LVH on Echo lasix improved s/s continue diuresis as inpt. Disposition Doctor Will See Patient In The: Hospital Counseled Patient/Family Regarding: Studies Performed, Diagnosis - Disposition Disposition: HOSPITALIZED Disposition Time: 15:11 Condition: GOOD - Clinical Impression Clinical Impression: Chronic congestive heart failure, Aortic stenosis - Scribe Statement The provider has reviewed the documentation as recorded by the Blas De Dios Provider Attestation: All medical record entries made by the Ilyaibmicaela were at my direction and personally dictated by me. I have reviewed the chart and agree that the record accurately reflects my personal performance of the history, physical exam, medical decision making, and the department course for this patient. I have also personally directed, reviewed, and agree with the discharge instructions and disposition.
[2018-07-21 15:22] LABS: URINE BILIRUBIN NEGATIVE (NEGATIVE); URINE BLOOD NEGATIVE (NEGATIVE); URINE CLARITY Clear (Clear); URINE COLOR Yellow (YELLOW); URINE GLUCOSE (UA) NORMAL (Normal); URINE LEUKOCYTE ESTERASE NEG Leu/uL (Negative); URINE PROTEIN 3+ mg/dL (NEGATIVE)
[2018-07-21] MEDS ORDERED: Enoxaparin 80 mg Syringe SC SCH (22:00)
--- NOTE | 2018-07-22 01:38 | CON ---
DATE: 07/21/2018 REASON FOR CONSULTATION: Elevated troponin and congestive heart failure. 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 She has multiple admissions for exacerbation of chronic obstructive lung disease. She presents because of shortness of breath and choking sensation as well as productive cough. The patient denies any fever or chills. The patient experienced flu-like symptoms 3 days ago. SOCIAL HISTORY: Nonsmoker, nondrinker. She lives with her son at this time. MEDICATIONS: The patient did receive albuterol inhaler, Lasix 40 mg intravenously as a single dose. Home medications: Simvastatin 10 mg daily, bisoprolol 5 mg daily, Coumadin 5 mg once a day, and Antivert 12.5 mg twice a day. REVIEW OF SYSTEMS: No fever or chills. No nausea or vomiting. No recent dizziness or syncope. PHYSICAL EXAMINATION: GENERAL: The patient is an elderly female, who does not appear to be in acute distress. VITAL SIGNS: Blood pressure 115/59, heart rate 72, respirations 20, and temperature 97.9. HEENT: Normocephalic. CHEST: Bilateral rhonchi. HEART: S1, S2. Regular. ABDOMEN: Soft. EXTREMITIES: Trace leg edema. LABORATORY DATA: SMA-7: Sodium 137, potassium 4.1, chloride 106, CO2 of 23, glucose 104, BUN 16, creatinine 0.9. Troponin 0.272. ProBNP is 22,500. INR is 1.8. PTT 36. Hemoglobin and hematocrit 10.3 and 31.9. White count and platelet count are within normal limits. EKG: Revealed sinus rhythm, inferolateral Q-wave inversion which is similar on previous EKGs. Chest x-ray: Revealed mild pulmonary vascular congestion and cardiomegaly. A most recent echo in 05/2018 revealed severe valvular aortic stenosis with normal left ventricular systolic function and mild pulmonary hypertension. ASSESSMENT: 1. Consider non-ST elevation myocardial infarction. 2. Severe prosthetic aortic valve stenosis. 3. Chronic obstructive lung disease. 4. Mild anemia. RECOMMENDATIONS: Admit the patient to telemetry. Start Lasix at 60 mg intravenously once a day. Resume simvastatin 10 mg once a day, bisoprolol 5 mg once a day. Hold Coumadin for now and start therapeutic subcutaneous Lovenox. Jacky Fay MD
--- NOTE | 2018-07-22 03:40 | HP ---
HISTORY OF PRESENT ILLNESS: The patient is a 78-year-old [place] female with history of multiple medical problems including aortic valve stenosis, status post prosthetic aortic valve replacement more than 25 years ago. The patient presented to the emergency room with symptoms of progressive shortness of breath and paroxysmal nocturnal dyspnea. The patient was given Lasix after she was found to be in pulmonary congestion and admitted to telemetry floor. The patient also was found to have elevated proBNP 22,500 and troponin of 0.27. The patient's creatinine is 0.9 and BUN is 16. REVIEW OF SYSTEMS: Other review of system is negative. ALLERGIES: POSITIVE FOR TRAMADOL. MEDICATIONS: Reviewed and ordered as per MAR. SOCIAL HISTORY: No history of smoking, EtOH or substance abuse. PAST MEDICAL HISTORY: Prosthetic aortic valve replacement, on warfarin, hypertension, osteoarthritis, COPD. PHYSICAL EXAMINATION: GENERAL: The patient is in bed at mild respiratory distress at the time of this examination. VITAL SIGNS: Blood pressure 115/59, temperature 98.2, respiratory rate 20, and pulse 72. HEENT: Pupils equal, reactive to light. Normal-appearing mucosa of the conjunctivae, oropharynx and nasal membrane mucosa. NECK: Supple. No JVD. No carotid bruit. No lymph node. No thyromegaly. CHEST AND LUNGS: Bilateral symmetrical expansion. Good air exchange. Bilateral basilar rales. CARDIOVASCULAR SYSTEM: PMI not localized. S1, S2, metallic sound, ejection systolic murmur that radiates to the carotid area. ABDOMEN: Normoactive bowel sounds. No tenderness. No organomegaly. No masses. EXTREMITIES: No cyanosis, no clubbing, no edema. CENTRAL NERVOUS SYSTEM: Alert, awake, oriented x3. No neurological deficit could be appreciated. ASSESSMENT: Acute on top diastolic congestive heart failure, severe critical aortic stenosis. PLAN: We will continue Lasix and beta-mirela. Discussed the patient's condition with Cardiology who agrees to entertain cardiothoracic surgery consultation. Continue trending down troponin as well as we will give the patient warfarin 5 mg tonight and monitor the INR tomorrow. Monitor electrolytes. Discussed the patient's condition with the patient's daughter at the bedside. Carlos Alberto Rojo MD [facility] # [id number]
[2018-07-22 04:53] LABS: BASO # 0.1 K/uL (0.0-0.2); BASO % 0.9 % (0.0-2.0); EOS # 0.1 K/uL (0.0-0.7); EOS % 1.9 % (0.0-4.0); HEMOGLOBIN 9.9 g/dL (11.0-16.0); LYMPH # 2.7 K/uL (1.0-4.3); LYMPH % 37.8 % (20.0-40.0); MEAN CELL VOLUME 90.5 fL (81.0-99.0); MEAN CORPUSCULAR HEMOGLOBIN 29.1 pg (27.0-31.0); MEAN CORPUSCULAR HGB CONC 32.2 g/dL (33.0-37.0); MEAN PLATELET VOLUME 9.5 fL (7.2-11.7); MONO # 0.7 K/uL (0.0-0.8); MONO % 9.5 % (0.0-10.0); NEUT # 3.5 K/uL (1.8-7.0); NEUT % 49.9 % (50.0-75.0); RBC 3.41 Mil/uL (3.80-5.20); RED CELL DISTRIBUTION WIDTH 16.3 % (11.5-14.5); WHITE BLOOD COUNT 7.1 K/uL (4.8-10.8)
[2018-07-22 05:05] LABS: ALB/GLOB RATIO 1.2 (1.0-2.1); ALBUMIN 3.4 g/dL (3.5-5.0); ALT/SGPT 38 U/L (9-52); AST/SGOT 47 U/L (14-36); BLOOD UREA NITROGEN 16 mg/dL (7-17); CALCIUM 10.5 mg/dl (8.6-10.4); GFR NON-AFRICAN AMERICAN 53
[2018-07-22 05:45] LABS: CK-MB 3.18 ng/mL (0.0-3.38)
[2018-07-22] MEDS ORDERED: Albuterol 0.083% Inhal Sol (2.5 mg/3 mL) UD INH PRN (09:30)
[2018-07-22 12:17] LABS: INR 1.9; PROTHROMBIN TIME 20.4 SECONDS (9.7-12.2)
[2018-07-22 12:29] LABS: ALB/GLOB RATIO 1.3 (1.0-2.1); ALBUMIN 3.9 g/dL (3.5-5.0); ALT/SGPT 34 U/L (9-52); AST/SGOT 50 U/L (14-36); BLOOD UREA NITROGEN 15 mg/dL (7-17); CALCIUM 10.9 mg/dl (8.6-10.4); GFR NON-AFRICAN AMERICAN 53
--- NOTE | 2018-07-22 16:55 | PN ---
DATE: 07/22/2018 SUBJECTIVE: The patient is experiencing shortness of breath and wheezing as well as productive cough. PHYSICAL EXAMINATION: VITAL SIGNS: Blood pressure 145/66, heart rate 77, temperature 97.4, respirations 20. HEENT: Normocephalic. CHEST: Diffuse bilateral rhonchi and scattered wheezing. HEART: S1 and S2 regular. ABDOMEN: Soft. EXTREMITIES: 1+ pitting edema. LABORATORY DATA: Today's hemoglobin and hematocrit 9.9 and 30.9. White count and platelet count are within normal limits. Today's SMA-7 is within normal limits except for glucose 109. Troponin's were as follows: 0.727, 0.339 and 0.368. Today's INR is 1.9. ASSESSMENT: 1. Consider non-ST elevation myocardial infarction. 2. Severe stenosis of the mechanical aortic valve. 3. Chronic obstructive lung disease. 4. Diastolic heart failure. RECOMMENDATIONS: Case was discussed with Dr. Rojo and with the family. Continue aspirin 81 mg once a day, Crestor 20 mg once a day, Lasix 60 mg intravenously once a day and Zebeta 5 mg once a day. Continue Coumadin until therapeutic INR is achieved. High risk cardiac catheterization with the intention of performing aortic valve replacement at [facility] was discussed with the family and a decision has not been made yet. Jacky Fay MD
[2018-07-23 07:14] LABS: INR 2.1; PROTHROMBIN TIME 22.8 SECONDS (9.7-12.2)
[2018-07-23 07:17] LABS: BASO # 0.1 K/uL (0.0-0.2); BASO % 0.7 % (0.0-2.0); EOS # 0.1 K/uL (0.0-0.7); EOS % 1.8 % (0.0-4.0); HEMOGLOBIN 10.3 g/dL (11.0-16.0); LYMPH # 2.8 K/uL (1.0-4.3); LYMPH % 38.2 % (20.0-40.0); MEAN CELL VOLUME 90.1 fL (81.0-99.0); MEAN CORPUSCULAR HEMOGLOBIN 30.2 pg (27.0-31.0); MEAN CORPUSCULAR HGB CONC 33.5 g/dL (33.0-37.0); MEAN PLATELET VOLUME 9.8 fL (7.2-11.7); MONO # 0.6 K/uL (0.0-0.8); MONO % 8.7 % (0.0-10.0); NEUT # 3.7 K/uL (1.8-7.0); NEUT % 50.6 % (50.0-75.0); RBC 3.4 Mil/uL (3.80-5.20); RED CELL DISTRIBUTION WIDTH 15.4 % (11.5-14.5); WHITE BLOOD COUNT 7.4 K/uL (4.8-10.8)
[2018-07-23 07:24] LABS: ALB/GLOB RATIO 1.2 (1.0-2.1); ALBUMIN 3.4 g/dL (3.5-5.0); ALT/SGPT 28 U/L (9-52); AST/SGOT 47 U/L (14-36); BLOOD UREA NITROGEN 18 mg/dL (7-17); CALCIUM 10.4 mg/dl (8.6-10.4); GFR NON-AFRICAN AMERICAN > 60
--- NOTE | 2018-07-23 09:36 | PN ---
DATE: 07/22/2018 SUBJECTIVE: The patient was seen on 07/22/2018. She was still having exertional shortness of breath that partially gets relieved at rest. PHYSICAL EXAMINATION: VITAL SIGNS: Blood pressure was 139/66, temperature 97.9, respiratory rate 18, and pulse 66. HEENT: Pupils equal, reactive to light. Normal-appearing mucosa of the conjunctivae, oropharynx, and nasal membrane mucosa. NECK: Supple. No JVD. No carotid bruit. No lymph node. No thyromegaly. CHEST AND LUNGS: Bilateral symmetrical expansion. Good air exchange. No rales. No rhonchi. CARDIOVASCULAR SYSTEM: PMI not localized. S1, S2. The patient has an ejection systolic murmur at the aortic area with metallic sounds of the prosthetic valve. ABDOMEN: Normoactive bowel sounds. No tenderness. No organomegaly. No masses. EXTREMITIES: No cyanosis, no clubbing, no edema. CENTRAL NERVOUS SYSTEM: Alert, awake, oriented x2. No neurological deficit could be appreciated. ASSESSMENT: 1. Severe symptomatic aortic stenosis. 2. Status post aortic valve replacement 25 years ago with a prosthetic mechanical valve. PLAN: We will continue Lasix and monitor electrolytes. Continue warfarin and monitor INR. Follow cardiology recommendations. Discussed with the patient's daughter at the bedside. Carlos Alberto Rojo MD
[2018-07-23 15:59] VITALS: RESP 20
--- NOTE | 2018-07-23 18:04 | PN ---
DATE: 07/23/2018 SUBJECTIVE: The patient is still experiencing shortness of breath and paroxysmal nocturnal dyspnea. PHYSICAL EXAMINATION: VITAL SIGNS: Blood pressure 116/65, heart rate 61, temperature 97.7, respirations 22. HEENT: Normocephalic. CHEST: Diffuse bilateral rhonchi. HEART: S1 and S2 regular. ABDOMEN: Soft. EXTREMITIES: Trace leg edema. LABORATORY DATA: Today's hemoglobin and hematocrit 10.3 and 30.6, white count and platelet count are within normal limits. Today's potassium is 3.2 and BUN and creatinine 18 and 0.9. I did review the echocardiogram study which revealed concentric LVH with normal ejection fraction, mild mitral insufficiency and moderate aortic stenosis. ASSESSMENT: 1. Status post non-ST elevation myocardial infarction. 2. Stenotic mechanical prosthetic aortic valve. 3. Chronic obstructive lung disease. 4. Hypokalemia. RECOMMENDATIONS: Continue aspirin 81 mg once a day, Crestor 20 mg once a day. Increase Lasix to 40 mg intravenously twice a day. Continue Zebeta 5 mg once a day. Coumadin will be adjusted by Dr. Rojo INR is 2.1. The case was discussed at length with the patient's daughter and the option of cardiac catheterization with the intent to perform aortic valve replacement as well as possible bypass surgery if needed was discussed however, the family is reluctant for this decision. In the meantime, I will start the patient on K-Dur at 20 mEq twice a day. Jacky Fay MD
[2018-07-23] MEDS: Potassium Chloride 20 mEq ER Tab PO SCH (18:41)
[2018-07-23 18:59] LABS: ABG ALLEN TEST POS; ARTERIAL BLOOD GAS HCO3 25.4 mmol/L (21-28); ARTERIAL BLOOD GAS HEMOGLOBIN 11.2 g/dL (11.7-17.4); ARTERIAL BLOOD GAS O2 SAT 96.8 % (95-98); ARTERIAL BLOOD GAS PCO2 34 mm/Hg (35-45); ARTERIAL BLOOD GAS PH 7.46 (7.35-7.45); ARTERIAL BLOOD GAS PO2 67 mm/Hg (80-100); ARTERIAL BLOOD GAS TCO2 25.2 mmol/L (22-28)
--- NOTE | 2018-07-24 00:11 | PN ---
DATE: 07/23/2018 SUBJECTIVE: The patient is seen today, 07/23/2018. She is still having exertional shortness of breath and orthopnea. PHYSICAL EXAMINATION: VITAL SIGNS: Blood pressure is 128/72, temperature 97.5, respiratory rate 20, and pulse 60. HEENT: Pupils equal, reactive to light. Normal-appearing mucosa of the conjunctivae, oropharynx, and nasal membrane mucosa. NECK: Supple. No JVD. No carotid bruit. No lymph node. No thyromegaly. CHEST AND LUNGS: Bilateral symmetrical expansion. Good air exchange. A few basilar rales. CARDIOVASCULAR SYSTEM: PMI not localized. S1, S2. No additional sounds. ABDOMEN: Normoactive bowel sounds. No tenderness. No organomegaly. No masses. EXTREMITIES: No cyanosis, no clubbing, no edema. CENTRAL NERVOUS SYSTEM: Alert, awake, oriented x2. No neurological deficit could be appreciated. ASSESSMENT: 1. Severe critical aortic stenosis, symptomatic. 2. Hypertension. 3. Status post prosthetic aortic valve replacement 25 years ago. PLAN: warfarin as per INR. Followup recommendations of Cardiology. Continue current medications. Carlos Alberto Rojo MD
[2018-07-24] MEDS: Potassium Chloride 20 mEq ER Tab PO SCH ×2 (09:51→17:44)
[2018-07-24 11:29] LABS: INR 2.3; PROTHROMBIN TIME 25.6 SECONDS (9.7-12.2)
[2018-07-24 11:35] LABS: ALB/GLOB RATIO 1.3 (1.0-2.1); ALBUMIN 3.8 g/dL (3.5-5.0); CALCIUM 10.4 mg/dl (8.6-10.4)
--- NOTE | 2018-07-24 13:13 | CARD ---
APPROVED REPORT Date of service: 07/21/2018 EKG Measurement Heart [id number] 198P-1 [id number] <Conclusion> Normal sinus rhythm ST & T wave abnormality, consider inferolateral ischemia Abnormal ECG
[2018-07-24 16:03] VITALS: PULSE 65; TEMP 98; O2SAT 97
--- NOTE | 2018-07-24 16:55 | CP.PCM.PCO ---
Physician Communication Note - Physician Communication Note Physician Communication Note: Dr. Rojo reports the patient is medically stable for discharge.
--- NOTE | 2018-07-24 17:17 | CP.PCM.PN ---
Subjective - Date & Time of Evaluation Date of Evaluation: 07/24/18 Time of Evaluation: 17:00 - Subjective Subjective: Hospitalist note Patient seen and examined. Patient's PMD Dr. Rojo called me because he is unable to discharge as patient complete he is in [place] and an extra computer there is no nurse practitioner on the floor on Sundays. He is asked if I could discharge this patient on his behalf. Patient denies any acute symptoms. Patient is accompanied by family members. Patient and patient's son is aware that he she will need to follow-up in the office on Wednesday for arrangements for [facility] for valve replacement. Patient's family reports that they have enough medication at bedside. They are aware that patient must take her Coumadin to maintain therapeutic INR as well as to take her diuretic. Patient's PMD also reports that he will call in Lasix and/or Coumadin if the with a recent do not have sufficient supply. I have provided prescription for Lasix for at least 2 days until they see Dr. Rojo in the offi ce. Objective - Vital Signs/Intake and Output Vital Signs (last 24 hours): Temp Pulse Resp BP Pulse Ox 98 F 65 20 105/67 97 07/24/18 16:00 07/24/18 16:00 07/24/18 16:00 07/24/18 16:00 07/24/18 16:00 Intake and Output: 07/24/18 07/24/18 06:59 18:59 Intake Total 240 Balance 240 - Medications Medications: Current Medications Acetaminophen (Tylenol 325mg Tab) 650 mg PO Q6 PRN PRN Reason: headache Albuterol Sulfate (Albuterol 0.083% Inhal Maci (2.5 Mg/3 Ml) Ud) 2.5 mg INH RQ6 PRN PRN Reason: Wheezing Aspirin (Aspirin Chewable) 81 mg PO DAILY [facility] Last Admin: 07/24/18 09:49 Dose: 81 mg Bisoprolol Fumarate (Zebeta) 5 mg PO DAILY [facility] Last Admin: 07/24/18 09:49 Dose: 5 mg Furosemide (Lasix) 40 mg IVP BID [facility] Last Admin: 07/24/18 09:48 Dose: 40 mg Loratadine (Claritin) 10 mg PO DAILY [facility] Last Admin: 07/24/18 09:49 Dose: 10 mg Montelukast Sodium (Singulair) 10 mg PO [facility] Last Admin: 07/23/18 21:53 Dose: 10 mg Potassium Chloride (K-Dur 20 Meq Er Tab) 20 meq PO BID [facility] Last Admin: 07/24/18 09:51 Dose: 20 meq Rosuvastatin Calcium (Crestor) 20 mg PO HS [facility] Last Admin: 07/23/18 21:53 Dose: 20 mg Warfarin Sodium (Coumadin) 5 mg PO 1800 ONE Stop: 07/24/18 18:01 - Labs Labs: 07/23/18 07:02 07/24/18 11:17 PT 25.6 SECONDS (9.7-12.2) H 07/24/18 11:17 INR 2.3 07/24/18 11:17 APTT 41 SECONDS (21-34) H D 07/22/18 04:49 - Constitutional Appears: Non-toxic, No Acute Distress - Head Exam Head Exam: NORMAL INSPECTION - Eye Exam Eye Exam: EOMI Pupil Exam: PERRL - Respiratory Exam Respiratory Exam: Rhonchi, NORMAL BREATHING PATTERN. absent: Rales - Cardiovascular Exam Cardiovascular Exam: REGULAR RHYTHM, +S1, +S2 Additional comments: healed incision - GI/Abdominal Exam GI & Abdominal Exam: Soft, Normal Bowel Sounds. absent: Distended, Firm, Guarding, Rigid, Tenderness, Rebound - Extremities Exam Extremities Exam: absent: Pedal Edema, Tenderness - Neurological Exam Neurological Exam: Alert, Awake, Oriented x3 - Psychiatric Exam Psychiatric exam: Normal Affect, Normal Mood - Skin Skin Exam: Dry, Intact, Normal Color, Warm Assessment and Plan (1) Aortic stenosis, severe Assessment & Plan: Blood pressure control. Follow-up with Dr. Rojo on Wednesday for arrangements for aortic valve replacement to be taken twice at [facility] Patient has a prosthetic aortic valve therapeutic with INR 2.3 patient to continue Coumadin. Patient reports of patient supply of Coumadin. Status: Acute (2) Hypertension Assessment & Plan: Blood pressure controlled Status: Acute (3) Prosthetic aortic valve stenosis Assessment & Plan: Therapeutic INR continue Coumadin therapy in the Status: Acute (4) Hypokalemia Assessment & Plan: Repleted. Status: Acute - Assessment and Plan (Free Text) Assessment: Please note discharge summary responsibility for PMD Dr. Rojo.
[2018-07-24 17:45] VITALS: BP 131/71
--- NOTE | 2018-07-24 19:52 | PN ---
DATE: 07/24/2018 SUBJECTIVE: The patient's shortness of breath improved. She is currently off nasal O2. No retrosternal chest pain. PHYSICAL EXAMINATION: VITAL SIGNS: Blood pressure 118/60, heart rate 72, temperature 97.7, and respirations 20. HEENT: Normocephalic. CHEST: Right basal rhonchi. HEART: S1 and S2 regular. EXTREMITIES: No edema. LABORATORY DATA: Today's SMA-7: Sodium 138, potassium 3.5, chloride 102, CO2 27, glucose 116, BUN 20, and creatinine 1.1. Today's hemoglobin and hematocrit 10.3 and 30.6, white count and platelet count are within normal limits. ASSESSMENT: 1. Congestive heart failure. 2. Chronic obstructive lung disease. 3. Non-ST elevation myocardial infarction. 4. Mechanical aortic valve stenosis. 5. Borderline hypokalemia. RECOMMENDATIONS: The patient did receive K-Dur 20 mEq today. Continue Crestor 20 mg once a day, aspirin 81 mg once a day, Zebeta 5 mg once a day, Lasix 40 mg intravenously twice a day. The case was discussed at length with the patient's son yesterday. The option of transferring the patient to [facility] next week was entertained; however, the cupola operator insulation Dr. Rikki Saldaña has to be contacted first and a bed has to be made available; however, decision was made to discharge the patient today and contact Dr. Saldaañ as an outpatient. The patient has seen Dr. Saldaña as an outpatient a few years ago for the same evaluation for aortic valve replacement. Jacky Fay MD
--- NOTE | 2018-07-25 06:11 | DS ---
REASON FOR ADMISSION: This is a 78-year-old Sammar[place] female with history of aortic valve prosthesis, was admitted for pulmonary congestion with diastolic heart failure. COURSE OF HOSPITALIZATION: The patient was admitted to telemetry floor and she was started on Lasix. The patient had an echocardiogram done during this admission and Cardiology consult done by Dr. Fay. The patient has been having critical aortic stenosis since last admission with aortic valve area less than 1 sq cm and the peak pressure is more than 40 and the mean gradient is more than 40 mmHg. The patient was stabilized and discharged home to follow with Cardiology as well as possible cardiothoracic surgery. I will give the patient Coumadin as . FINAL DIAGNOSES: Congestive heart failure, mainly diastolic, critical aortic stenosis, hypertension. [facility] MD Darrel
--- NOTE | 2018-07-25 10:09 | CARD ---
APPROVED REPORT Date of service: 07/23/2018 EXAM: Two-dimensional and M-mode echocardiogram with Doppler and color Doppler. Other Information Quality : AverageRhythm : NSR INDICATION Acute MT Aortic Valve Disease AVR/ 2D DIMENSIONS LVOT Diameter1.1 (1.8-2.4cm)LA Aphhnk88 (18-58mL) M-Mode DIMENSIONS IVSd0.70 (0.7-1.1cm)LVDd5.49 (4.0-5.6cm) PWd0.81 (0.7-1.1cm)FS (%) 31 % LVDs3.80 (2.0-3.8cm)LVEF (%)58 (>50%) Aortic Valve AoV Peak Egeussbd894.1cm/sAoV VTI62.6cmAO Peak GR.43mmHg LVOT Peak Lpotdzsx109.9cm/sLVOT VTI31.61cmAO Mean GR.22mmHg DAVID (VMAX)0.70yo6VKS (VTI)0.51cm2 Mitral Valve MV E Qihoxewl733.6cm/sMV A Encsaulp747.0cm/sE/A ratio1.3 TDI Lateral E' Peak V8.29cm/sMedial E' Peak V3.19cm/sE/Lateral E'16.2 E/Medial E'42.2 Tricuspid Valve TR Peak Wtshjfmx483dy/sTR Peak Gr.67bjTbFWTX70szNl LEFT VENTRICLE The left ventricle is normal size. There is moderate to severe concentric left ventricular hypertrophy. The left ventricular function is normal. The left ventricular ejection fraction is within the normal range. About 75% No regional wall motion abnormalities noted. The left ventricular diastolic function is normal. No left ventricle thrombus noted on this study. There is no ventricular septal defect visualized. There is no left ventricular aneurysm. There is no mass noted in the left ventricle. RIGHT VENTRICLE The right ventricle is normal size. There is normal right ventricular wall thickness. The right ventricular systolic function is normal. ATRIA The left atrium size is normal. The right atrium size is normal. The interatrial septum is intact with no evidence for an atrial septal defect. AORTIC VALVE Mechanical aortic valve with high gradients Peak/mean 77/39 mm Hg. Calculated AV area is 1.0 cm2 . AT appears normal, suggesting mis match Trace aortic regurgitation is present. MITRAL VALVE The mitral valve is normal in structure and function. There is no evidence of mitral valve prolapse. There is no mitral valve stenosis. There is mild mitral valve regurgitation noted. TRICUSPID VALVE The tricuspid valve is normal in structure and function. There is mild tricuspid valve regurgitation noted. There is no tricuspid valve prolapse or vegetation. There is no tricuspid valve stenosis. PULMONIC VALVE The pulmonary valve is normal in structure and function. There is no pulmonic valvular regurgitation. There is no pulmonic valvular stenosis. GREAT VESSELS The aortic root is normal in size. The ascending aorta is normal in size. The pulmonary artery is normal. The IVC is normal in size and collapses >50% with inspiration. PERICARDIAL EFFUSION The pericardium appears normal. There is no pleural effusion. <Conclusion> The left ventricular function is normal. The left ventricular ejection fraction is within the normal range. About 75% There is moderate to severe concentric left ventricular hypertrophy. There is mild mitral valve regurgitation noted. Mechanical aortic valve with high gradients Peak/mean 77/39 mm Hg. Calculated AV area is 1.0 cm2 . AT appears normal, suggesting mis match Trace aortic regurgitation is present.
--- NOTE | 2018-07-28 22:24 | PQF ---
PROVIDER RESPONSE TEXT: NSTEMI is ruled in REVIEWER QUERY TEXT: Myocardial Infarction Type An DC is documented. Please CLARIFY The patient's Clinical Indicators include: P.NOTE 07/24/18 NSTEMI IS DOCUMENTED ALSO CONSULT FOR 07/21/18 BY Sami CHAPPELL " CONSIDER NON ST ELEVATION MYOCARDIAL INFARCT" TEST RESULTS pro BNP 22,500 TROPONIN 0.272 PLEASE, CLARIFY IF NSTEMI was RULED IN OR RULED OUT Query created by: Gayle Sy on 07/26/2018 12:01 PM Electronically signed by: Carlos Alberto Rojo MD 07/28/2018 10:22 PM
== END 2018-07-24 18:30 | disposition home or self-care (01) | DRG 280 ==
LOC: C.ER 12:33 → C.9E 15:11 → C.5S 16:57
PROVIDERS: ADMIT Internal Medicine; ATTEND Internal Medicine
DX: I21.4 Non-ST elevation (NSTEMI) myocardial infarction (principal); I50.33 Acute on chronic diastolic (congestive) heart failure; T82.857A Stenosis of other cardiac prosthetic devices, implants and grafts, initial encounter; I11.0 Hypertensive heart disease with heart failure; E87.6 Hypokalemia; I25.10 Atherosclerotic heart disease of native coronary artery without angina pectoris; J44.9 Chronic obstructive pulmonary disease, unspecified; E78.00 Pure hypercholesterolemia, unspecified; Y83.1 Surgical operation with implant of artificial internal device as the cause of abnormal reaction of the patient, or of later complication, without mention of misadventure at the time of the procedure; I06.0 Rheumatic aortic stenosis; D64.9 Anemia, unspecified; I35.0 Nonrheumatic aortic (valve) stenosis; Z79.01 Long term (current) use of anticoagulants; Z95.2 Presence of prosthetic heart valve

== ENCOUNTER 2018-09-05 10:52 | Inpatient (IN) | payer MEDICARE, MEDICAID ==
[2018-09-05 10:52] VITALS: BMI 30.1
[2018-09-05 11:58] LABS: BASO % 0.6 % (0.0-2.0); EOS % 0.6 % (0.0-4.0); HEMOGLOBIN 12.1 g/dL (11.0-16.0); LYMPH # 2.6 K/uL (1.0-4.3); LYMPH % 41.9 % (20.0-40.0); MEAN CELL VOLUME 88.2 fL (81.0-99.0); MEAN CORPUSCULAR HGB CONC 30.9 g/dL (33.0-37.0); MEAN PLATELET VOLUME 10.3 fL (7.2-11.7); MONO # 0.6 K/uL (0.0-0.8); MONO % 8.9 % (0.0-10.0); NRBC % 0.1 % (0.0-2.0); RBC 4.46 Mil/uL (3.80-5.20); RED CELL DISTRIBUTION WIDTH 16.1 % (11.5-14.5); WHITE BLOOD COUNT 6.3 K/uL (4.8-10.8)
[2018-09-05 12:02] LABS: ALB/GLOB RATIO 1.3 (1.0-2.1); ALBUMIN 3.7 g/dL (3.5-5.0); ALT/SGPT 25 U/L (9-52); AST/SGOT 64 U/L (14-36); BLOOD UREA NITROGEN 15 mg/dL (7-17); CALCIUM 10.3 mg/dl (8.6-10.4); GFR NON-AFRICAN AMERICAN > 60
[2018-09-05 12:13] LABS: INR 4.9; PROTHROMBIN TIME 53.9 SECONDS (9.7-12.2)
[2018-09-05 12:15] LABS: B-TYPE NATRIURETIC PEPTIDE 22200 pg/mL (0-900)
--- NOTE | 2018-09-05 12:46 | C.PDOC ---
History Of Present Illness 78 year old female, whose past medical history includes CHF, renal insufficiency, hypertension, hypercholesterolemia, presents to the ED for evaluation of abdominal pain that has been worsening for two weeks. As per daughter and son at bedside, patients pain has been worse with eating liquids and solids. As per daughter, patient has also had poor appetite. Patient states her pain is currently 8/10, but occasionally worsens to 10/10. She was evaluated by her PMD, Dr. Rojo, one week ago and prescribed Protonix and dicyclomine w hich daughter states has not improved her pain. Patient also reports shortness of breath, generalized weakness and nausea. Patient denies prior gastroenterology evaluation and prior endoscopy. Patient has unknown history of gastric ulcers. Patient was recently evaluated in this ED on 07/21/18 and unde rwent admission for CHF. Chief Complaint (Nursing): Abdominal Pain History Per: Patient History/Exam Limitations: no limitations Onset/Duration Of Symptoms: Other (two weeks ) Current Symptoms Are (Timing): Worse Pain Scale Rating Of: 8 Location Of Pain/Discomfort: Diffuse Quality Of Discomfort: "Pain" Associated Symptoms: denies: Vomiting, Diarrhea Additional History Per: Patient Past Medical History Reviewed: Historical Data, Nursing Documentation, Vital Signs Vital Signs: Last Vital Signs Temp 97.6 F 09/05/18 10:57 Pulse 74 09/05/18 10:57 Resp 16 09/05/18 10:57 BP 129/72 09/05/18 10:57 Pulse Ox 96 09/05/18 10:57 - Medical History PMH: Arthritis, Bronchitis, CAD, Cardia Arrhythmia, HTN, Hypercholesterolemia, Chronic Kidney Disease Surgical History: CABG Family History: States: Unknown Family Hx - Social History Hx Tobacco Use: No Hx Alcohol Use: No Hx Substance Use: No - Immunization History Hx Influenza Vaccination: Yes Hx Pneumococcal Vaccination: Yes Review Of Systems Constitutional: Negative for: Fever, Chills Cardiovascular: Negative for: Chest Pain Gastrointestinal: Positive for: Nausea, Abdominal Pain. Negative for: Vomiting, Diarrhea Musculoskeletal: Negative for: Back Pain, Leg Pain Skin: Negative for: Rash Physical Exam - Physical Exam Appears: Non-toxic, No Acute Distress Skin: Normal Color, Warm, Dry Head: Atraumatic, Normacephalic Eye(s): bilateral: Normal Inspection Oral Mucosa: Moist Neck: Supple Chest: Symmetrical Cardiovascular: Rhythm Regular Respiratory: Normal Breath Sounds, No Rales, No Rhonchi, No Wheezing Gastrointestinal/Abdominal: Soft, Tenderness (right upper quadrant and epigastric regions ), No Guarding, No Rebound Back: No CVA Tenderness Extremity: Normal ROM, Capillary Refill (less than 2 seconds ) Neurological/Psych: Oriented x3, Normal Speech, Normal Cognition, Normal Sensation ED Course And Treatment - Laboratory Results Result Diagrams: 09/05/18 11:37 09/05/18 11:37 Lab Results: PT 53.9 SECONDS (9.7-12.2) H 09/05/18 11:37 INR 4.9 H* 09/05/18 11:37 APTT 50 SECONDS (21-34) H 09/05/18 11:37 Troponin I 0.4160 ng/mL (0.00-0.120) H* 09/05/18 11:37 NT-Pro-B Natriuret Pep 79442 pg/mL (0-900) H 09/05/18 11:37 Total Bilirubin 1.3 mg/dL (0.2-1.3) 09/05/18 11:37 AST 64 U/L (14-36) H 09/05/18 11:37 ALT 25 U/L (9-52) 09/05/18 11:37 Alkaline Phosphatase 323 U/L (38-126) H D 09/05/18 11:37 Total Protein 6.6 g/dL (6.3-8.3) 09/05/18 11:37 Albumin 3.7 g/dL (3.5-5.0) 09/05/18 11:37 Globulin 2.9 gm/dL (2.2-3.9) 09/05/18 11:37 Albumin/Globulin Ratio 1.3 (1.0-2.1) 09/05/18 11:37 ECG: Interpreted By Me, Viewed By Me Interpretation Of ECG: Sinus rhythm at 71bpm with 1st degree AV block. Inverted T wave abnormality in inferior and lateral leads Rate From EC O2 Sat by Pulse Oximetry: 96 (on RA) Pulse Ox Interpretation: Normal - Other Rad CXR X-Ray: Viewed By Me, Read By Radiologist Interpretation: HISTORY: chest pain. COMPARISON: Chest x-ray performed . TECHNIQUE: Chest PA and lateral. FINDINGS: LUNGS: Patchy left greater than right lower lobe opacities. Question presence of consolidation or mass at the medial right lower lobe. Please note that chest x-ray has limited sensitivity for the detection of pulmonary masses. PLEURA: Trace right pleural effusion. No definite pneumothorax . CARDIOVASCULAR: Median sternotomy wires. Enlargement of the cardiomediastinal silhouette. No atherosclerotic calcification present. OSSEOUS STRUCTURES: Osseous demineralization. Degenerative changes. Kyphosis. VISUALIZED UPPER ABDOMEN: Unremarkable. OTHER FINDINGS: None. IMPRESSION: Patchy left greater than right lower lobe opacities, possibly pneumonia. Question presence of consolidation or mass at the medial right lower lobe. Trace right pleural effusion. Enlarged cardiomediastinal silhouette. Ectatic aorta with dense atherosclerotic calcifications. - CT Scan/US Abdomen US Other Rad Studies (CT/US): Read By Radiologist, Radiology Report Reviewed CT/US Interpretation: HISTORY: ruq and epigastric abd pain. COMPARISON: CT abdomen and pelvis without IV contrast performed 05/28/18. TECHNIQUE: Sonographic evaluation of the abdomen. FINDINGS: LIVER: Measures 19.1 cm in sagittal dimension. Echogenic liver may be seen in setting of hepatic parenchymal disease or fatty infiltration. No focal hepatic mass identified. The main portal vein appears patent with normal directional flow. No intrahepatic bile duct dilatation. Mild ascites. GALLBLADDER: No gallstones. No gallbladder wall thickening. Negative sonographic Alex's sign as assessed by the revenue settlements administrator. COMMON BILE DUCT: Measures 2 mm. PANCREAS: Not well visualized. RIGHT KIDNEY: Measures 10.8 x 3.7 x 4.9 cm. No obstructing calculus or hydronephrosis identified. 0.9 x 1.1 x 1.2 cm echogenic lower pole lesion, possibly angiomyolipoma. LEFT KIDNEY: Measures 10.9 x 4.4 x 4.3 cm. No obstructing calculus or hydronephrosis identified. SPLEEN: Measures milton roximately 10.7 cm. AORTA: Limited views appear unremarkable. IVC: Limited views appear unremarkable. OTHER FINDINGS: Incidental note is made of right- sided pleural effusion. IMPRESSION: Hepatomegaly. Echogenic liver may be seen in setting of hepatic parenchymal disease or fatty infiltration. Mild upper abdominal ascites. Incidental note is made of right-sided pleural effusion. 0.9 x 1.1 x 1.2 cm echogenic right lower pole lesion, possibly angiomyolipoma. Medical Decision Making Medical Decision Making: Progress: Bloodwork, urinalysis, CXR, EKG ordered and reviewed. Tylenol PO given. 1220: Case discussed with Dr. Vera Henry, agrees to admit the patient. 1312: Case discussed with Dr. Rojo, who recommends to order abdominal ultrasound and administer Aspirin 325mg PO. 1453: Case discussed with Dr. Rojo, who agrees to admit the patient. Protonix IVP and three antibiotics for pneumonia ordered. 1453: On reassessment, patient is resting comfortably and reports an improvement in her pain. I discussed the plan with the patient, and she verbalizes understanding and agrees with plan. Disposition Discussed With Dr.: Carlos Alberto Rojo Doctor Will See Patient In The: Hospital Counseled Patient/Family Regarding: Studies Performed, Diagnosis, Need For Followup - Disposition Disposition: HOSPITALIZED Disposition Time: 14:57 Condition: STABLE - Clinical Impression Clinical Impression: Pneumonia, Abdominal pain, Ascites - PA / STUDENT RECRUITER / Resident Statement MD/DO has reviewed & agrees with the documentation as recorded. - Scribe Statement The provider has reviewed the documentation as recorded by the Scribe (Yenny Henry) All medical record entries made by the Scribe were at my direction and personally dictated by me. I have reviewed the chart and agree that the record accurately reflects my personal performance of the history, physical exam, medical decision making, and the department course for this patient. I have also personally directed, reviewed, and agree with the discharge instructions and disposition. Decision To Admit - Pt Status Changed To: Hospital Disposition Of: Observation - . Bed Request Type: Regular Admitting Physician: Carlos Alberto Rojo Patient Diagnosis: Pneumonia, Abdominal pain, Ascites
[2018-09-05 12:52] LABS: SQUAMOUS EPITHIAL 1 /hpf (0-5); URINE BACTERIA RARE (<OCC); URINE BILIRUBIN NEGATIVE (NEGATIVE); URINE BLOOD NEGATIVE (NEGATIVE); URINE CLARITY Hazy (Clear); URINE COLOR Amber (YELLOW); URINE GLUCOSE (UA) NORMAL (Normal); URINE LEUKOCYTE ESTERASE NEG Leu/uL (Negative); URINE PROTEIN 3+ mg/dL (NEGATIVE)
--- NOTE | 2018-09-05 13:38 | RAD ---
HISTORY: chest pain COMPARISON: Chest x-ray performed 07/21/18 TECHNIQUE: Chest PA and lateral FINDINGS: LUNGS: Patchy left greater than right lower lobe opacities. Question presence of consolidation or mass at the medial right lower lobe. Please note that chest x-ray has limited sensitivity for the detection of pulmonary masses. PLEURA: Trace right pleural effusion. No definite pneumothorax . CARDIOVASCULAR: Median sternotomy wires. Enlargement of the cardiomediastinal silhouette. No atherosclerotic calcification present. OSSEOUS STRUCTURES: Osseous demineralization. Degenerative changes. Kyphosis. VISUALIZED UPPER ABDOMEN: Unremarkable. OTHER FINDINGS: None. IMPRESSION: Patchy left greater than right lower lobe opacities, possibly pneumonia. Question presence of consolidation or mass at the medial right lower lobe. Trace right pleural effusion. Enlarged cardiomediastinal silhouette. Ectatic aorta with dense atherosclerotic calcifications.
--- NOTE | 2018-09-05 14:25 | US ---
HISTORY: ruq and epigastric abd pain COMPARISON: CT abdomen and pelvis without IV contrast performed 05/28/18 TECHNIQUE: Sonographic evaluation of the abdomen. FINDINGS: LIVER: Measures 19.1 cm in sagittal dimension. Echogenic liver may be seen in setting of hepatic parenchymal disease or fatty infiltration. No focal hepatic mass identified. The main portal vein appears patent with normal directional flow. No intrahepatic bile duct dilatation. Mild ascites. GALLBLADDER: No gallstones. No gallbladder wall thickening. Negative sonographic Alex's sign as assessed by the vineyardist. COMMON BILE DUCT: Measures 2 mm. PANCREAS: Not well visualized. RIGHT KIDNEY: Measures 10.8 x 3.7 x 4.9 cm. No obstructing calculus or hydronephrosis identified. 0.9 x 1.1 x 1.2 cm echogenic lower pole lesion, possibly angiomyolipoma. LEFT KIDNEY: Measures 10.9 x 4.4 x 4.3 cm. No obstructing calculus or hydronephrosis identified. SPLEEN: Measures approximately 10.7 cm. AORTA: Limited views appear unremarkable. IVC: Limited views appear unremarkable. OTHER FINDINGS: Incidental note is made of right-sided pleural effusion. IMPRESSION: Hepatomegaly. Echogenic liver may be seen in setting of hepatic parenchymal disease or fatty infiltration. Mild upper abdominal ascites. Incidental note is made of right-sided pleural effusion. 0.9 x 1.1 x 1.2 cm echogenic right lower pole lesion, possibly angiomyolipoma.
[2018-09-05] MEDS ORDERED: Piperacill/Tazo 4.5gm in Dex 4.5 GM/100 ML BAG IVPB STA (14:46)
[2018-09-05] MEDS ORDERED: Azithromycin 500 MG in Sodium Chloride 0.9% 250 ML IVPB STA (14:47)
[2018-09-05] MEDS ORDERED: Vancomycin 1 GM 1 GM/250 ML BAG IVPB ONE (15:20)
[2018-09-05] MEDS ORDERED: Azithromycin 500mg/250ML NS 500 MG/250 ML BAG IVPB ONE (15:20)
[2018-09-05] MEDS ORDERED: Iohexol 240 (50 ml) PO ONE (17:12)
[2018-09-05] MEDS ORDERED: Iohexol 240 (50 ml) ONE (17:27)
[2018-09-05] MEDS ORDERED: Iohexol 300 100 ML IJ ONE (17:58)
[2018-09-05] MEDS: Piperacill/Tazo 2.25gm in Dex 2.25 GM/50 ML BAG IVPB SCH (22:26)
--- NOTE | 2018-09-06 03:28 | CON ---
DATE: 09/05/2018 HISTORY OF PRESENT ILLNESS: The patient is a 78-year-old [place] female who has a history of aortic valve replacement who has mechanical aortic valve some 25 years ago. He has history of chronic obstructive lung disease and was diagnosed with moderate to severe prosthetic aortic valve stenosis as well as recently severe mitral insufficiency. The patient is being considered for both mitral and aortic valve replacement at [facility], following a planned cardiac catheterization at [facility]. The patient presented at this time because of right subcostal pain extending into the lower sternal area, and the patient was experiencing wheezing and shortness of breath on minimal exertion. The patient is on nasal home O2 that she is obtaining it on her own. The patient denies any fever or chills, and no productive cough. The patient denies any dizziness or syncope. SOCIAL HISTORY: The patient is a nonsmoker, nondrinker. She is a . Lives with her son. MEDICATIONS: The patient did receive aspirin 325 mg stat dose, IV Zithromax 500 mg stat dose, 40 mg of Protonix intravenously stat dose, and one dose of 1 gram of intravenous vancomycin. REVIEW OF SYSTEMS: No nausea, vomiting. No diarrhea. No fever or chills. PHYSICAL EXAMINATION: GENERAL: The patient is an elderly female who does not appear to be in acute distress. VITAL SIGNS: Blood pressure 132/68, heart rate 76, temperature 98.3, respirations 18. HEENT: Normocephalic. CHEST: Scattered bilateral wheezing. HEART: S1, S2. Regular. ABDOMEN: Soft. EXTREMITIES: Trace leg edema. LABORATORY DATA: Hemoglobin and hematocrit 12.1 and 39.1. White count and platelet counts are within normal limit. Today's SMA-7: Sodium 136, potassium 3.8, chloride 102, CO2 of 29, glucose 117, BUN 15, creatinine 0.9. Troponin 0.416. ProBNP is 22,200. Lipase is 103. INR is 4.9. EKG revealed sinus rhythm at a rate of 71, first degree AV block. Consider anterolateral ischemia. Abdominal ultrasound, hepatomegaly, echogenic liver. Consider parenchymal disease or fatty infiltration. Mild upper abdominal ascites. Incidental note of right-sided pleural effusion. ASSESSMENT: 1. Right subcostal chest pain, borderline troponin elevation. Rule out [id number] myocardial infarction. EKG is consistent with lateral ischemic T-wave inversion. 2. Moderate to severe stenosis of mechanical aortic valve and severe mitral insufficiency. 3. Fatty liver. 4. Consider systolic heart failure. RECOMMENDATIONS: Admit the patient to telemetry. Hold on any further Coumadin therapy. Start baby aspirin 81 mg once a day. Continue IV antibiotics. I recommend performing abdomen and pelvis CT scan without contrast. The plan is eventually the patient will go to [facility] for cardiac catheterization prior to an open heart surgery for both aortic and mitral valve replacement and possible coronary artery bypass surgery. Jacky Fay MD
[2018-09-06] MEDS: Piperacill/Tazo 2.25gm in Dex 2.25 GM/50 ML BAG IVPB SCH ×3 (05:45→21:52)
[2018-09-06 08:10] LABS: CK-MB 3.47 ng/mL (0.0-3.38); TROPONIN I 0.392 ng/mL (0.00-0.120)
--- NOTE | 2018-09-06 08:24 | HP ---
HISTORY OF PRESENT ILLNESS: This is a 78-year-old [place] female with history of severe aortic stenosis, pulmonary hypertension, status post prosthetic aortic valve replacement, on warfarin, presented to emergency room with symptoms of upper abdominal pain. The patient was evaluated in emergency room, and she was found to have bilateral lower lobe airway disease, left more than right. The patient was admitted for further management after starting IV antibiotics. Other review of system revealed exertional shortness of breath as well as generalized weakness. PAST MEDICAL HISTORY: As above. SOCIAL HISTORY: No history of smoking, EtOH, or substance abuse. FAMILY HISTORY: Not contributory. MEDICATIONS: Reviewed and ordered as per SEP. PHYSICAL EXAMINATION: GENERAL: The patient is in mild distress secondary to the pain. VITAL SIGNS: Blood pressure is 134/78, temperature 97.2, respiratory rate 16, and pulse 77. HEENT: Pupils equal and reactive to light. Normal-appearing mucosa of the conjunctivae, oropharynx, and nasal membrane mucosa. NECK: Supple. No JVD. No carotid bruit. No lymph node. No thyromegaly. CHEST AND LUNGS: Bilateral symmetrical expansion. Good air exchange. No rales, no rhonchi. CARDIOVASCULAR SYSTEM: PMI not localized. S1, S2. No additional sounds. ABDOMEN: Normoactive bowel sounds. No tenderness. No organomegaly. No masses. EXTREMITIES: No cyanosis, no clubbing, no edema. CENTRAL NERVOUS SYSTEM: Alert, awake, oriented x2. No neurological deficit could be appreciated. Moves all extremities equally. ASSESSMENT: Bilateral airway disease, severe pulmonary hypertension, severe aortic stenosis, hypertension. PLAN: IV antibiotics. CT chest, abdomen, and pelvis; and we will follow the results. We will hold the warfarin as INR is 4.9. Resume bisoprolol [address] Fay for cardiology consult. Cox Monett MD Darrel
[2018-09-06 08:28] LABS: INR 4.5
[2018-09-06 08:29] LABS: PROTHROMBIN TIME 49.3 SECONDS (9.7-12.2)
[2018-09-06] MEDS: Pantoprazole 40 mg EC Tab PO SCH (09:10)
--- NOTE | 2018-09-06 10:11 | CT ---
Date of service: 09/05/2018 CT chest, abdomen, and pelvis with IV contrast Indication: abdominal pain Technique: Contiguous axial images of the chest, abdomen, and pelvis. Coronal and Sagittal reformats generated and reviewed. This CT exam was performed using 1 or more of the following dose reduction techniques: Automated exposure control, adjustment of the MAA and/or kV according to patient size, and/or use of iterative reconstruction technique. Contrast: 100 cc Omnipaque IV Radiation dose: Total exam DLP = 985.98 MGy-cm. Comparison: Abdominal ultrasound performed 09/05/18, CT abdomen and pelvis without IV contrast performed 05/28/18 Findings: Visualized portions of the inferior thyroid gland and subcm hypodense nodules and calcifications. The mediastinal and hilar vascular structures appear within normal limits. Cardiomegaly. Dense atherosclerotic calcifications of the aorta and branches. Coronary artery calcifications. Valvular calcifications. Median sternotomy wires. Small bilateral pleural effusions and associated consolidations. Lingular atelectasis. No pneumothorax. Trace perihepatic ascites. Hypoattenuation of the liver compatible with hepatic steatosis. Hepatomegaly. Borderline splenomegaly. The kidneys, pancreas, adrenal glands, and gallbladder appear unremarkable. Atherosclerotic calcifications of the aorta and branches. Moderate hiatal hernia. The stomach is nondistended. The bowel loops appear within normal limits of caliber without evidence of intestinal obstruction. There is no definite free air. Uterus is present. 1.7 cm right adnexal cyst, likely ovarian cyst. Underdistended urinary bladder. 10 x 6 x 3 cm lipoma, left gluteus. Smaller fat containing ventral hernia. Kyphosis. Osseous demineralization. Small anterior osteophyte formation. T11-12 interbody fusion. T12-L1 and L1-L2 retrolisthesis. Impression: Subcm hypodense thyroid nodules and calcifications. Suggest further evaluation with thyroid ultrasound if indicated. Cardiomegaly. Dense atherosclerotic calcifications of the aorta and branches. Coronary artery calcifications. Valvular calcifications. Median sternotomy wires. Small bilateral pleural effusions and associated consolidations. Lingular atelectasis. Trace perihepatic ascites. Hypoattenuation of the liver compatible with hepatic steatosis. Hepatomegaly. Borderline splenomegaly. Moderate hiatal hernia. 1.7 cm right adnexal cyst, likely ovarian cyst. Additional findings as above. Preliminary impression was provided by [facility].
--- NOTE | 2018-09-06 17:23 | PN ---
DATE: 09/06/2018 SUBJECTIVE: The patient is still experiencing shortness of breath and mild cough. She therapy because she did not tolerate it in the past. She still is complaining of cramping abdominal pain. PHYSICAL EXAMINATION: VITAL SIGNS: Blood pressure 120/56, heart rate 72, temperature 97.6, and respirations 20. HEENT: Normocephalic. CHEST: Bibasal dry crepitations. HEART: S1, S2, regular. ABDOMEN: Soft. EXTREMITIES: Trace leg edema. LABORATORY DATA: Troponins were 0.146 and 0.392. ProBNP is 22,200. Chest, abdomen, and pelvis CT scan reported subcentimeter hypodense thyroid nodules and calcification. Cardiomegaly. Dense atherosclerotic calcification in the aorta and branches. Coronary artery calcification. Valvular calcification. Small bilateral pleural effusion and associated consolidations. Lung atelectasis. Borderline splenomegaly. Moderate hiatus hernia. ASSESSMENT: 1. Consider bilateral pneumonia. 2. Exacerbation of chronic obstructive lung disease. 3. Borderline troponin elevation. Consider non ST-elevation myocardial infarction. 4. Severely stenotic mechanical aortic valve prosthesis. 5. Moderate to severe mitral insufficiency. RECOMMENDATIONS: Continue Zebeta 5 mg once a day. Continue IV Zosyn and change Lasix 40 mg intravenously once a day. No Coumadin today. . Jacky Fay MD
--- NOTE | 2018-09-06 20:25 | CARD ---
APPROVED REPORT Date of service: 09/05/2018 EKG Measurement Heart [id number] <Conclusion> Sinus rhythm with 1st degree AV block Low voltage QRS T wave abnormality, consider inferolateral ischemia Abnormal ECG
[2018-09-07] MEDS: Piperacill/Tazo 2.25gm in Dex 2.25 GM/50 ML BAG IVPB SCH ×3 (06:23→21:50)
[2018-09-07 07:10] LABS: BASO # 0.1 K/uL (0.0-0.2); BASO % 0.9 % (0.0-2.0); EOS # 0.1 K/uL (0.0-0.7); EOS % 1.8 % (0.0-4.0); HEMOGLOBIN 11.1 g/dL (11.0-16.0); LYMPH % 41.3 % (20.0-40.0); MEAN CELL VOLUME 86.7 fL (81.0-99.0); MEAN CORPUSCULAR HEMOGLOBIN 28.1 pg (27.0-31.0); MEAN CORPUSCULAR HGB CONC 32.4 g/dL (33.0-37.0); MEAN PLATELET VOLUME 10.4 fL (7.2-11.7); MONO # 0.7 K/uL (0.0-0.8); MONO % 9.2 % (0.0-10.0); NEUT # 3.4 K/uL (1.8-7.0); NEUT % 46.8 % (50.0-75.0); NRBC % 0.1 % (0.0-2.0); RBC 3.96 Mil/uL (3.80-5.20); RED CELL DISTRIBUTION WIDTH 16.5 % (11.5-14.5); WHITE BLOOD COUNT 7.3 K/uL (4.8-10.8)
[2018-09-07 07:42] LABS: INR 3.6
[2018-09-07 07:46] LABS: ALB/GLOB RATIO 1.2 (1.0-2.1); ALBUMIN 3.4 g/dL (3.5-5.0); CALCIUM 10.5 mg/dl (8.6-10.4)
[2018-09-07] MEDS: Pantoprazole 40 mg EC Tab PO SCH (10:47)
[2018-09-07] MEDS: Magnesium Hydroxide Susp 30 ml UD PO SCH (10:58)
[2018-09-07] MEDS ORDERED: Potassium Chloride 20 mEq ER Tab PO ONE (12:00)
--- NOTE | 2018-09-07 16:05 | PN ---
DATE: 09/07/2018 SUBJECTIVE: The patient is still experiencing upper abdominal discomfort, shortness of breath, and coughing. PHYSICAL EXAMINATION: VITAL SIGNS: Blood pressure 97/57, heart rate 68, temperature 97.8, respirations 20. HEENT: Normocephalic. CHEST: Bibasilar dry crepitations. HEART: S1, S2, regular. ABDOMEN: Soft. EXTREMITIES: Trace leg edema. LABORATORY DATA: Today's hemoglobin, hematocrit, white count, and platelet count are within normal limits. Today's SMA-7 is within normal limits except for chloride of 3.5 and glucose 112. Today's calcium is elevated at 10.5. Today's INR is 3.6. ASSESSMENT: 1. Consider bilateral pneumonia. 2. Exacerbation of chronic obstructive lung disease. 3. Borderline troponin elevation. 4. Consider [id number] myocardial infarction. 5. Severely stenotic mechanical aortic valve. 6. Moderate to severe mitral insufficiency. 7. Borderline hypercalcemia. 8. Borderline hypotension. RECOMMENDATIONS: IV Lasix. Continue Zosyn at 2.25 g every 8 hours and Zebeta 2.5 mg daily. I will discuss with Dr. Rojo starting therapeutic subcutaneous Lovenox as the patient is scheduled for cardiac catheterization in 5 days. Jacky Fay MD
--- NOTE | 2018-09-08 01:35 | PN ---
DATE: 09/07/2018 SUBJECTIVE: The patient is complaining of shortness of breath, mostly exertional. PHYSICAL EXAMINATION: VITAL SIGNS: Blood pressure 113/69, temperature 97.4, respiratory rate 20, and pulse 74. HEENT: Pupils equal, reactive to light. Normal-appearing mucosa of the conjunctivae, oropharynx, and nasal membrane mucosa. NECK: Supple. No JVD. No carotid bruit. No lymph node. No thyromegaly. CHEST AND LUNGS: Bilateral symmetrical expansion. Good air exchange. Few basilar rales. No rhonchi. CARDIOVASCULAR SYSTEM: PMI not localized. S1, S2. No additional sounds. ABDOMEN: Normoactive bowel sounds. No tenderness. No organomegaly. No masses. EXTREMITIES: No cyanosis, no clubbing. There is bilateral edema. CENTRAL NERVOUS SYSTEM: Alert, awake, oriented x2. No neurological deficit could be appreciated. ASSESSMENT: 1. Severe aortic stenosis with pulmonary hypertension and right-sided heart failure. 2. Epigastric pain, likely secondary to hepatic congestion and ascites. 3. Bilateral lower lobe pneumonia. 4. Status post aortic prosthetic valve replacement, on warfarin. INR today is 3.6. PLAN: Continue Lasix, morphine, and IV antibiotics. We will keep monitoring INR, and start warfarin as needed. Physical therapy. Carlos Alberto Rojo MD
--- NOTE | 2018-09-08 01:48 | PN ---
DATE: 09/06/2018 DAILY PROGRESS NOTE SUBJECTIVE: Late entry for a visit done on 09/06/2018. The patient was having shortness of breath and upper abdominal pain. CAT scan showed that the patient has minimal ascites, and this could explain the patient's upper abdominal pain. PHYSICAL EXAMINATION: VITAL SIGNS: Blood pressure is 113/63, temperature 97.5, respiratory rate 20, and pulse 67. HEENT: Pupils are equal and reactive to light. Normal-appearing mucosa of the conjunctivae, oropharynx and nasal membrane mucosa. NECK: Supple. No JVD. No carotid bruit. No lymph node. No thyromegaly. CHEST AND LUNGS: Bilateral symmetrical expansion. Good air exchange. No rales. No rhonchi. CARDIOVASCULAR SYSTEM: PMI not localized. S1 and S2. No additional sounds. ABDOMEN: Normoactive bowel sounds. No tenderness. No organomegaly. No masses. EXTREMITIES: No cyanosis, no clubbing. There is bilateral pitting edema. ASSESSMENT: 1. Severe aortic stenosis with portal hypertension, right-sided heart failure with ascites and lower extremity edema. 2. Status post prosthetic aortic valve, on warfarin. 3. Hypertension. 4. Osteoarthritis. PLAN: Continue current medications and management. We will give the patient Lasix as well as morphine. Discussed the patient's condition with her family at the bedside. Carlos Alberto Rojo MD
[2018-09-08] MEDS: Piperacill/Tazo 2.25gm in Dex 2.25 GM/50 ML BAG IVPB SCH ×3 (06:10→21:29)
[2018-09-08 08:18] LABS: BLOOD UREA NITROGEN 16 mg/dL (7-17); CALCIUM 11.3 mg/dl (8.6-10.4); GFR NON-AFRICAN AMERICAN 53
[2018-09-08] MEDS: Magnesium Hydroxide Susp 30 ml UD PO SCH (09:51)
[2018-09-08] MEDS: Pantoprazole 40 mg EC Tab PO SCH (09:51)
[2018-09-08 13:52] LABS: INR 2.2; PROTHROMBIN TIME 23.6 SECONDS (9.7-12.2)
--- NOTE | 2018-09-08 14:08 | RAD ---
Date of service: 09/08/2018 HISTORY: SOB COMPARISON: Comparison chest 09/05/2018 FINDINGS: LUNGS: Poor inspiration with low lung volumes, crowded bronchovascular markings, bibasilar atelectasis and/or infiltrates with small effusions right greater than left. The central pulmonary vasculature is also slightly congested. PLEURA: No pneumothorax apparent. CARDIOVASCULAR: Moderate aortic atherosclerotic calcification present. Heart remains enlarged. Sternotomy wires again noted. OSSEOUS STRUCTURES: No significant abnormalities. VISUALIZED UPPER ABDOMEN: Normal. OTHER FINDINGS: None. IMPRESSION: Poor inspiration with low lung volumes, crowded bronchovascular markings, bibasilar atelectasis and/or infiltrates with small effusions right greater than left. The central pulmonary vasculature is also slightly congested.
--- NOTE | 2018-09-08 19:56 | PN ---
DATE: 09/08/2018 SUBJECTIVE: The patient is seen today, 09/08/2018. She is having generalized weakness with poor appetite. PHYSICAL EXAMINATION: VITAL SIGNS: Blood pressure is 122/76, temperature 97.9, respiratory rate 20 and pulse 66. HEENT: Pupils equal, reactive to light. Normal-appearing mucosa of the conjunctivae, oropharynx and nasal membrane mucosa. NECK: Supple. No JVD. No carotid bruit. No lymph node. No thyromegaly. CHEST AND LUNGS: Bilateral symmetrical expansion. Good air exchange. No rales, no rhonchi. CARDIOVASCULAR SYSTEM: PMI not localized. The patient has S1, S2, metallic sound of the mechanical aortic valve with ejection systolic murmur of aortic stenosis. ABDOMEN: Normoactive bowel sounds. No tenderness. No organomegaly. No masses. EXTREMITIES: No cyanosis, no clubbing, no edema. AGRICULTURAL ECONOMIST: Alert, awake, oriented x2. No neurological deficit could be appreciated. ASSESSMENT: 1. Severe aortic stenosis with pulmonary hypertension and right-sided heart failure. 2. Right upper quadrant pain secondary hepatomegaly with ascites. 3. Status post Coumadin overdose with INR of 4.5, today INR is down to 2.2. PLAN: We will give the patient warfarin 4 mg today and continue Lasix and current antibiotics treating possible bilateral pneumonia. Carlos Alberto Rojo MD
--- NOTE | 2018-09-08 20:10 | PN ---
PROCEDURE DATE: 09/08/2018 SUBJECTIVE: The patient is still experiencing shortness of breath. She required IV Lasix last night. No cough. PHYSICAL EXAMINATION: VITAL SIGNS: Blood pressure 108/64, heart rate 72, temperature 97.5, respirations 20. HEENT: Normocephalic. CHEST: Worsening of the right basal crackles. HEART: S1, S2. Regular. ABDOMEN: Soft. EXTREMITIES: Trace edema. LABORATORY DATA: Today's SMA-7 is within normal limits except for glucose 108. The calcium is elevated at 11.3. ASSESSMENT: 1. Bilateral pneumonia. 2. Stenotic mechanical aortic valve prosthesis. 3. Moderate to severe mitral insufficiency. 4. Pulmonary hypertension. 5. Chronic obstructive lung disease. 6. Hypercalcemia. RECOMMENDATIONS: Continue current IV Zosyn 2.25 g every 8 hours. Continue Lasix at 10 mg intravenously every 8 hours, which was started today. Continue Zebeta 2.5 mg daily. Consider followup chest x-ray. Obtain INR today. Jacky Fay MD
[2018-09-09] MEDS: Piperacill/Tazo 2.25gm in Dex 2.25 GM/50 ML BAG IVPB SCH ×3 (07:23→22:11)
[2018-09-09] MEDS: Magnesium Hydroxide Susp 30 ml UD PO SCH ×2 (09:27→13:46)
[2018-09-09] MEDS: Pantoprazole 40 mg EC Tab PO SCH (09:51)
[2018-09-09 11:36] LABS: PROTHROMBIN TIME 21.7 SECONDS (9.7-12.2)
[2018-09-09] MEDS ORDERED: Aluminum Hydroxide/Magnesium Hydroxide Susp (30 mL) PO PRN (17:05)
[2018-09-09] MEDS: Belladonna-Phenobarbital PO PRN (17:43)
--- NOTE | 2018-09-09 20:29 | PN ---
DATE: 09/09/2018 SUBJECTIVE: The patient is mildly short of breath with steady abdominal discomfort, mild cough, which is nonproductive. PHYSICAL EXAMINATION: VITAL SIGNS: Blood pressure 96/57, heart rate 69, temperature 97.9, respiration 20. HEENT: Normocephalic. CHEST: Right basilar crepitations. HEART: S1 and S2 are regular. ABDOMEN: Soft. EXTREMITIES: 1+ pitting edema. LABORATORY DATA: Today's INR is 2. A chest x-ray performed yesterday revealed worsening of the right lower lobe infiltrate. ASSESSMENT: 1. Bilateral pneumonia. 2. Stenotic mechanical aortic valve prosthesis. 3. Pulmonary hypertension. 4. [id number] mitral insufficiency. RECOMMENDATIONS: Continue Lasix 20 mg intravenously every 8 hours, morphine sulfate 1 mg intravenously every 6 hours, Zebeta 2.5 mg daily, and Zosyn 2.25 g intravenously every 8 hours. Start therapeutic subcutaneous Lovenox until a therapeutic INR is achieved. Case was discussed at length with primary physician, Dr. Rojo. The plan is if the patient improved, she will discharge to be readmitted to [facility] on Wednesday for her scheduled cardiac catheterization. Jacky Fay MD
[2018-09-09] MEDS: Enoxaparin 80 mg Syringe SC SCH (22:13)
[2018-09-10] MEDS: Piperacill/Tazo 2.25gm in Dex 2.25 GM/50 ML BAG IVPB SCH ×3 (06:42→21:37)
[2018-09-10] MEDS: Enoxaparin 80 mg Syringe SC SCH ×2 (09:13→21:37)
[2018-09-10] MEDS: Magnesium Hydroxide Susp 30 ml UD PO SCH (09:13)
--- NOTE | 2018-09-10 09:27 | PN ---
DATE: 09/09/2018 SUBJECTIVE: The patient was seen 09/09/2018. She was complaining of upper abdominal pain. No nausea, no vomiting or diarrhea. The patient has decreased oral intake. PHYSICAL EXAMINATION: VITAL SIGNS: Blood pressure was 106/67, temperature 97.9, respiratory rate 18, and pulse 66. HEENT: Pupils equal, reactive to light. Normal-appearing mucosa of the conjunctivae, oropharyngeal, and nasal membrane mucosa. NECK: Supple. No JVD. No carotid bruit. No lymph node. No thyromegaly. CHEST AND LUNGS: Bilateral symmetrical expansion. Good air exchange. No rales, no rhonchi. CARDIOVASCULAR SYSTEM: PMI not localized. S1, S2 positive. Ejection systolic murmur on the aortic area with metallic sound of prosthetic valve. ABDOMEN: Slight tenderness of the epigastric area, normoactive bowel sounds. No organomegaly. No masses. EXTREMITIES: Bilateral pitting edema of both lower extremities. CHIEF NURSE EXECUTIVE: Alert, awake, oriented x2. No neurological deficit could be appreciated. ASSESSMENT: 1. Bilateral lower lobe pneumonia, on Zosyn. 2. Severe aortic stenosis with pulmonary hypertension and right-sided heart failure. 3. Upper abdominal pain, likely gastritis. 4. History of hypertension. PLAN: Continue diuretics and we will give the patient and Maalox and Protonix. The patient is scheduled for cardiac catheterization at [facility] on 09/12/2018. We will hold warfarin and bridge the patient with heparin. Carlos Alberto Rojo MD
[2018-09-10] MEDS: Belladonna-Phenobarbital PO PRN (11:02)
[2018-09-10 11:38] LABS: INR 2.3; PROTHROMBIN TIME 24.7 SECONDS (9.7-12.2)
[2018-09-10 11:49] LABS: ALB/GLOB RATIO 1.2 (1.0-2.1); ALBUMIN 3.7 g/dL (3.5-5.0); CALCIUM 11.4 mg/dl (8.6-10.4)
[2018-09-10] MEDS ORDERED: Potassium Chloride 20 mEq/15 ml LIQ UD PO STA (13:32)
[2018-09-10] MEDS ORDERED: Potassium Chloride 20 mEq ER Tab PO STA (13:40)
[2018-09-10] MEDS: Potassium Chloride 20 mEq ER Tab PO SCH (13:57)
--- NOTE | 2018-09-10 15:24 | RAD ---
Date of service: 09/10/2018 HISTORY: pneumonia COMPARISON: 09/08/2018 FINDINGS: LUNGS: Linear scar/atelectasis at right base. Linear scar/atelectasis adjacent to left hilum. No kely infiltrate. PLEURA: No significant pleural effusion identified, no pneumothorax apparent. CARDIOVASCULAR: There is atherosclerotic calcification of the thoracic aortic arch. Normal heart size. Sternotomy wires. No pulmonary vascular congestion. OSSEOUS STRUCTURES: No significant abnormalities. VISUALIZED UPPER ABDOMEN: Normal. OTHER FINDINGS: None. IMPRESSION: No active disease.
--- NOTE | 2018-09-10 19:58 | PN ---
DATE: 09/10/2018 SUBJECTIVE: The patient is still experiencing shortness of breath and epigastric discomfort. PHYSICAL EXAMINATION: VITAL SIGNS: Blood pressure 116/69, heart rate 104, temperature 97.4, respirations 20. HEENT: Normocephalic. CHEST: Bibasilar coarse crepitations. HEART: S1 and S2, regular. ABDOMEN: Soft. EXTREMITIES: 1+ pitting edema. LABORATORY DATA: Today's SMA-7: Sodium 136, potassium 3.2, chloride 95, CO2 of 34, glucose 116, BUN 17, creatinine 1.2. Total bilirubin is slightly elevated at 1.5. Blood culture is negative after five days. ASSESSMENT: 1. Bilateral pneumonia. 2. Hypokalemia. 3. Hypercalcemia. 4. Consider non-ST elevation myocardial infarction. 5. Severely stenotic mechanical aortic valve. 6. Mitral insufficiency and pulmonary hypertension. RECOMMENDATIONS: Continue Lasix 20 mg intravenously every 8 hours, subcutaneous Lovenox 70 mg twice a day, Protonix 20 mg intravenously once a day , Zebeta 2.5 mg orally daily and Zosyn 2.25 g intravenously every 8 hours. We will start K-Dur at 20 mEq intravenous replacement and start 20 mEq orally daily, starting today. We will obtain a portable chest x-ray and O2 saturation. I also ordered Dulcolax suppository for the patient's constipation. Jacky Fay MD
[2018-09-10 22:59] VITALS: RESP 20
[2018-09-11] MEDS: Piperacill/Tazo 2.25gm in Dex 2.25 GM/50 ML BAG IVPB SCH ×3 (05:58→22:17)
[2018-09-11] MEDS: Potassium Chloride 20 mEq ER Tab PO SCH (09:09)
[2018-09-11] MEDS: Magnesium Hydroxide Susp 30 ml UD PO SCH (09:09)
[2018-09-11] MEDS: Enoxaparin 80 mg Syringe SC SCH ×2 (09:10→22:16)
[2018-09-11 14:27] LABS: BLOOD UREA NITROGEN 16 mg/dL (7-17); GFR NON-AFRICAN AMERICAN 53
--- NOTE | 2018-09-11 21:01 | PN ---
DATE: 09/11/2018 SUBJECTIVE: The patient's shortness of breath is slightly improved compared to yesterday, and she did have a bowel movement. No dizziness. PHYSICAL EXAMINATION: VITAL SIGNS: Blood pressure 112/60, heart rate 71, temperature 97.7, respirations 20. HEENT: Normocephalic. CHEST: Bibasilar coarse crepitations. HEART: S1, S2, regular. ABDOMEN: Soft. EXTREMITIES: 1+ pitting edema. LABORATORY DATA: SMA-7, sodium 133, potassium 3.4, chloride 94, CO2 of 31, glucose 165, BUN 16, creatinine 1, magnesium is 2. ASSESSMENT: 1. Stenotic mechanical aortic valve. 2. Bilateral pneumonia. 3. Hypokalemia. 4. Hypercalcemia. RECOMMENDATIONS: Continue therapeutic subcutaneous Lovenox, continue K-Dur 20 mEq once a day, Lasix 20 mg intravenously every 8 hours, Zebeta 2.5 mg once a day, and Zosyn 2.25 g intravenously every 8 hours. The plan is to discharge the patient in a.m She will go directly to [facility] for her scheduled cardiac catheterization at 2 p.m. Lovenox will be discontinued in a.m. Jacky Fay MD
--- NOTE | 2018-09-12 02:03 | PN ---
DATE: 09/10/2018 SUBJECTIVE: This is a late entry for a daily visit done on 09/10/2018. The patient was seen on 09/10/2018. The patient was still having exertional shortness of breath. Upper abdominal pain was relieved by . PHYSICAL EXAMINATION: VITAL SIGNS: Blood pressure was 116/69, temperature 97.4, respiratory rate 20, and pulse 65. HEENT: Pupils equal and reactive to light. Normal-appearing mucosa of the conjunctivae, oropharyngeal, and nasal membrane mucosa. NECK: Supple. No JVD. No carotid bruit. No lymph node. No thyromegaly. CHEST AND LUNGS: Bilateral symmetrical expansion. Good air exchange. No rales. No rhonchi. CARDIOVASCULAR SYSTEM: PMI not localized. S1, S2. No additional sounds. ABDOMEN: Normoactive bowel sounds. No tenderness. No organomegaly. No masses. EXTREMITIES: No cyanosis, no clubbing, no edema. CENTRAL NERVOUS SYSTEMS: Alert, awake, oriented x2. No neurological deficit could be appreciated. ASSESSMENT: 1. Bilateral lower lobe pneumonia which was resolving. 2. Epigastric pain, likely gastritis. 3. Severe aortic stenosis. 4. Pulmonary hypertension with right-sided failure. PLAN: Continue current medications and warfarin will be stopped, and we will continue therapeutic dose of Lovenox to bridge the patient and followup with Cardiology at [facility]. The patient is scheduled for a cardiac catheterization at [facility] on 09/12/2018. Erna MD Darrel
[2018-09-12] MEDS: Piperacill/Tazo 2.25gm in Dex 2.25 GM/50 ML BAG IVPB SCH (06:07)
[2018-09-12 07:54] VITALS: BP 114/70; PULSE 68; TEMP 97.6; O2SAT 99
--- NOTE | 2018-09-12 09:10 | CP.PCM.PN ---
Subjective - Date & Time of Evaluation Date of Evaluation: 09/12/18 Time of Evaluation: 09:07 Objective - Vital Signs/Intake and Output Vital Signs (last 24 hours): Temp Pulse Resp BP Pulse Ox 97.6 F 68 20 114/70 99 09/12/18 07:53 09/12/18 07:53 09/12/18 07:53 09/12/18 07:53 09/12/18 07:53 Intake and Output: 09/12/18 09/12/18 06:59 18:59 Intake Total 500 Balance 500 - Medications Medications: Current Medications Al Hydrox/Mg Hydrox/Simethicone (Maalox 30 Ml) 30 ml PO Q8 PRN PRN Reason: Indigestion / Heartburn Last Admin: 09/09/18 17:43 Dose: 30 ml Ascorbic Acid (Vitamin C 500 Mg Tab) 500 mg PO DAILY [facility] Last Admin: 09/11/18 09:09 Dose: 500 mg Belladonna/Phenobarbital () 1 tab PO Q8 PRN PRN Reason: abd pain Last Admin: 09/10/18 11:02 Dose: 1 tab Bisoprolol Fumarate (Zebeta) 2.5 mg PO DAILY [facility] Last Admin: 09/11/18 09:09 Dose: 2.5 mg Diphenhydramine HCl (Benadryl) 25 mg PO HS PRN PRN Reason: Insomnia Last Admin: 09/07/18 22:51 Dose: 25 mg Furosemide (Lasix) 20 mg IVP Q8H SHARLA Last Admin: 09/12/18 06:07 Dose: 20 mg Piperacillin Sod/Tazobactam Sod (Zosyn 2.25 Gm Iv Premix) 2.25 gm in 50 mls @ 100 mls/hr IVPB Q8 SHARLA; Protocol Last Admin: 09/12/18 06:07 Dose: 100 mls/hr Lactulose (Enulose) 20 gm PO HS SHARLA Last Admin: 09/11/18 22:17 Dose: 20 gm Magnesium Hydroxide (Milk Of Magnesia) 30 ml PO DAILY [facility] Last Admin: 09/11/18 09:09 Dose: 30 ml Morphine Sulfate (Morphine) 1 mg IVP Q6H PRN PRN Reason: Pain, severe (8-10) Last Admin: 09/10/18 21:37 Dose: 1 mg Pantoprazole Sodium (Protonix Inj) 40 mg IVP DAILY [facility] Last Admin: 09/11/18 09:10 Dose: 40 mg Potassium Chloride (K-Dur 20 Meq Er Tab) 20 meq PO DAILY SHARLA Last Admin: 09/11/18 09:09 Dose: 20 meq - Labs Labs: 09/07/18 06:54 09/11/18 13:44 PT 24.7 SECONDS (9.7-12.2) H 09/10/18 11:18 INR 2.3 09/10/18 11:18 APTT 47 SECONDS (21-34) H 09/07/18 06:54 Assessment and Plan - Assessment and Plan (Free Text) Assessment: FOLLOW UP DIRECTLY AT [facility] AT 2PM FOR CARDIAC CATH TODAY PER DR MILES AND DR ALLEN FOLLOW UP WITH PMD AND HAIRSPRING FABRICATION SUPERVISOR IN A WEEK CONTINUE HOME MEDICATION PER DR MILES ACTIVITY TOLERATED CALL DR MILES OR GO TO THE EMERGENCY ROOM IF SYMPTOM RETURN OR WORSENING
[2018-09-12] MEDS: Potassium Chloride 20 mEq ER Tab PO SCH (10:44)
[2018-09-12] MEDS: Magnesium Hydroxide Susp 30 ml UD PO SCH (10:44)
--- NOTE | 2018-09-13 08:55 | DS ---
REASON FOR ADMISSION: This is a 78-year-old Citizen Of [place] female with history of multiple medical problems including severe aortic stenosis, postaortic valve replacement with prosthesis, presented and admitted through emergency room for progressive shortness of breath, upper abdominal pain, thought to be due to bilateral lower lobe pneumonia. COURSE OF HOSPITALIZATION: The patient was admitted to medical floor, and she was started on antibiotics. The patient continue to improve and abdominal ultrasound showed perihepatic ascites. The patient developed upper abdominal pain that was treated with and Maalox. The patient generally felt better, and she was treated with heparin as warfarin was stopped in anticipation of the procedure to be done at [facility] on the day of discharge. The patient was discharged in stable condition. FINAL DIAGNOSES: Pneumonia, hypertension, severe aortic stenosis, status post aortic valve replacement more than 25 years ago, mixed pulmonary hypertension with right-sided failure. Erna MD Darrel
== END 2018-09-12 11:54 | disposition home or self-care (01) | DRG 194 ==
LOC: C.ER 10:52 → C.9E 14:54 → OBSVTOIN 17:25 → C.5S 17:29
PROVIDERS: ADMIT Internal Medicine; ATTEND Internal Medicine
DX: J18.9 Pneumonia, unspecified organism (principal); I13.0 Hypertensive heart and chronic kidney disease with heart failure and stage 1 through stage 4 chronic kidney disease, or unspecified chronic kidney disease; J44.0 Chronic obstructive pulmonary disease with (acute) lower respiratory infection; J44.1 Chronic obstructive pulmonary disease with (acute) exacerbation; I50.20 Unspecified systolic (congestive) heart failure; K76.6 Portal hypertension; R18.8 Other ascites; T82.857A Stenosis of other cardiac prosthetic devices, implants and grafts, initial encounter; E83.52 Hypercalcemia; E87.6 Hypokalemia; I08.0 Rheumatic disorders of both mitral and aortic valves; I25.10 Atherosclerotic heart disease of native coronary artery without angina pectoris; I27.20 Pulmonary hypertension, unspecified; I50.810 Right heart failure, unspecified; N18.9 Chronic kidney disease, unspecified; K29.70 Gastritis, unspecified, without bleeding; E78.00 Pure hypercholesterolemia, unspecified; K76.0 Fatty (change of) liver, not elsewhere classified; K76.1 Chronic passive congestion of liver; M19.90 Unspecified osteoarthritis, unspecified site; Z95.1 Presence of aortocoronary bypass graft; Z95.2 Presence of prosthetic heart valve; Z79.01 Long term (current) use of anticoagulants